=== PATIENT | female | born 1935 | race Caucasian/White ===

== ENCOUNTER 2016-09-28 12:01 | Emergency (ER) | payer MEDICARE, OTHER, MEDICAID ==
[~2016-09-28] VITALS: Ht 157.5 cm; Wt 54.4 kg
[~2016-09-28 12:01] MED LIST: ALBU8.5H2; AMLO5TAB2 PO; ASP325T; ATOR40TA PO; CALC-80 PO; CLCX200C; CYAN500L PO; DCS100C PO; DPH25C PO; EST.625T PO; FEXO180T PO; FLT22013 IH; GFCD10B; GLMP1T; HCA25SU; HYDR-757 PO; HYDR1TAB; HYDR1TAB75 PO; HYDR30CR71; IBP800T PO; IBUP-15; LEVO125T PO; LEVO137T24; LEVO250T7 PO; LVB.63NB3 IH; NF-LOVAZAC PO; OMEP-10 PO; ORPH100T PO; PNT40TEC; PREG50C PO; PROP1TAB2; SCR1T PO; TELM80TA3 PO; TR5C15 TOP; WHEA1POW PO
[2016-09-28] MEDS ORDERED: MELA5TAB14 PO (13:20)
[2016-09-28] MEDS ORDERED: GLIP5TAB13 PO (13:20)
[2016-09-28] MEDS ORDERED: LEVO112T55 PO (13:20)
--- NOTE | 2016-09-28 14:18 | ED General ---
General Chief Complaint: Upper Extremity Stated Complaint: R SHOULDER SCRATCH Nursing Triage Note: Pt. advised her dog scratched her arm yesterday. Care provider placed steri-strips and antibiotic ointment to the area after the incident occured, bleeding is controlled. Care provider advises they are concerned the site may be infected. Nursing Sepsis Screen: No Definite Risk Source of Information: Patient, Caregiver Exam Limitations: No Limitations History of Present Illness Time Seen by Provider: 13:58 Initial Comments This 81-year-old woman is brought to the emergency room with concerns about a right arm injury where her dog scratched her. The dog was nervous during a thunderstorm and jumped in her bed. Patient has 24-hour care attendants who addressed the wound. It was washed and approximated with butterfly sutures. Antibiotic ointment was applied. Her care providers concerned about discoloration and possible infection. However, the discoloration appears to be bruising with no significant inflammation, swelling, or tenderness. Additionally, the patient's blood sugar was in the 40s upon arrival. She was still alert and was able to eat. Blood sugar recovered into the 140s. Patient takes glipizide for blood sugar management. She has had some difficulty with low blood sugars recently. She also reports hypothyroidism but no recent checks on her thyroid regulation. Allergies and Home Medications Allergies Coded Allergies: lisinopril (Verified Allergy, Mild, SWELLING, COULDN'T BREATHE, 01/12/16) Home Medications Amlodipine Besylate 5 Mg Tablet, 5 MG PO DAILY, Ref 0 (Reported) Amoxicillin/Potassium Clav 1 Each Tablet, 1 EACH PO BID, #14 Prescribed by: ÓSCAR GUILLAUME on 09/28/16 1420 Atorvastatin Calcium 40 Mg Tablet, 40 MG PO DAILY, Ref 0 (Reported) Glipizide 5 Mg Tablet, 5 MG PO, (Reported) Levothyroxine Sodium 112 Mcg Tablet, 112 MCG PO, (Reported) Melatonin 5 Mg Tablet, 5 MG PO, (Reported) Omeprazole 20 Mg Capsule.dr, 1 TAB PO BID, (Reported) Telmisartan 80 Mg Tablet, 80 MG PO DAILY, Ref 0 (Reported) Constitutional: no symptoms reported EENTM: no symptoms reported Respiratory: no symptoms reported Cardiovascular: no symptoms reported Gastrointestinal: no symptoms reported Genitourinary: no symptoms reported Musculoskeletal: no symptoms reported Skin: see HPI Psychiatric/Neurological: No Symptoms Reported Hematologic/Lymphatic: No Symptoms Reported Past Gfasbor-Vowqnh-Wjmyxx Hx Patient Social History Alcohol Use: Denies Use Recreational Drug Use: No Smoking Status: Never a Smoker Recent Foreign Travel: No Contact w/Someone Who Travel: No Recent Infectious Disease Expo: No Recent Hopitalizations: Yes Immunizations Up To Date Tetanus Booster (TDap): Less than 5yrs Date of Pneumonia Vaccine: Mar 01, 2010 Date of Influenza Vaccine: Mar 01, 2015 Seasonal Allergies Seasonal Allergies: No Surgeries HX Surgeries: Yes (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, SURGERY ON BOTH FEET, PINS IN BOTH FEET) Surgeries: Oophorectomy, Orthopedic Respiratory Hx Respiratory Disorders: No Cardiovascular Hx Cardiac Disorders: Yes Cardiac Disorders: Hypertension Neurological Hx Neurological Disorders: Yes (Fall with head bleed) Neurological Disorders: Traumatic Brain Injury 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 System Hx 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 Disorders: No Sexually Transmitted Disease: No HIV/AIDS: No Genitourinary Hx Genitourinary Disorders: No Gastrointestinal Hx Gastrointestinal Disorders: No Musculoskeletal Hx Musculoskeletal Disorders: No Musculoskeletal Disorders: Arthritis Endocrine Hx Endocrine Disorders: Yes Endocrine Disorders: Diabetes, Non-Insulin dep HEENT HX ENT Disorders: No Hearing Impairment: Hard of Hearing Cancer Hx Cancer: No Psychosocial Hx Psychiatric Problems: No Integumentary HX Skin/Integumentary Disorder: No Blood Transfusions Hx Blood Disorders: No Family Medical History Significant Family History: Heart Disease, COPD Family Medial History: Cardiovascular disease DAUGHTER Diabetes mellitus DAUGHTER Respiratory disorder DAUGHTER Physical Exam Vital Signs Vital Sign - Last 12Hours 09/28/16 12:20 Temp 97.2 Pulse 76 Resp 14 B/P (MAP) 145/61 Pulse Ox 97 O2 Delivery Room Air Capillary Refill : Less Than 3 Seconds General Appearance: No Apparent Distress, WD/WN HEENT: Normal ENT Inspection Neck: Normal Inspection Respiratory: Lungs Clear, Normal Breath Sounds, No Accessory Muscle Use, No Respiratory Distress Cardiovascular: Regular Rate, Rhythm, No Edema, No Murmur Extremity: Other (Wound has been well approximated with butterfly sutures. There is distal bruising without any evidence of inflammation, swelling, or unusual tenderness to suggest infection.) Neurologic/Psychiatric: Alert, Oriented x3, No Motor/Sensory Deficits, Normal Mood/Affect, financial analyst II-XII Norm as Tested Skin: Normal Color, Warm/Dry, Other (See above) Progress/Results/Core Measures Results/Orders Lab Results Laboratory Tests Test 09/28/16 12:51 09/28/16 13:54 Range/Units Glucometer 42 *L 144 H 70-110 MG/DL My Orders Orders - ÓSCAR HOWARD MD Cho 60g/M 1snack (16-2000 Cresencio) (09/28/16 Lunch) Vital Signs/I&O Blood Pressure Mean: 89 Point of Care Testing Finger Stick Blood Glucose: 144 Blood Glucose Action Taken: meal tray ordered, provider notified Progress Note : Progress Note Patient was started on Augmentin due to the nature of her wound and presence of diabetes. She was instructed to cut her glipizide in half until further instructions by her primary care provider. She was offered evaluation of her thyroid labs while in the ER. She declined and stated she would have her primary care provider address thyroid function. Advised her to pursue thyroid function testing as this may be contributing to her episodes of hypoglycemia. Departure Impression Impression: Primary Impression: Laceration of right upper arm Qualified Codes: S41.111A - Laceration without foreign body of right upper arm , initial encounter Additional Impressions: Hypoglycemia Hypothyroidism Qualified Codes: E03.9 - Hypothyroidism, unspecified Disposition: HOME, SELF-CARE Condition: Improved Departure-Patient Inst. Decision time for Depature: 14:05 Referrals: NICO ANTONIO MD (PCP) Primary Care Physician Patient Instructions: HYPOGLYCEMIA Add. Discharge Instructions: Hypoglycemia: Be sure to eat a well-balanced diet with 3 meals a day. Cut your glipizide dose in half until you are able to follow-up with your doctor. Monitor your blood sugars closely, preferably fasting in the morning and 2 hours after each meal. Record those blood sugars and bring them to your follow-up appointment Hypothyroidism: Have your thyroid levels (TSH and free T4) checked by your primary care provider. I suggest having these checked at least every 6 months to ensure no levothyroxin dosing changes are needed. Thyroid imbalance may affect your blood sugars. Arm laceration: Allow the Steri-Strips to all off naturally. Do not attempt to peel them away as this may cause the wound to open. You may trim off loose edges carefully with a small pair of scissors. Monitor for signs of infection including increasing redness, increasing swelling, increasing pain, puslike drainage, or fever. Return to care promptly if you notice these symptoms. Complete your antibiotic as prescribed to prevent infection. Please make a follow-up appointment to see your doctor later this week. All discharge instructions reviewed with patient and/or family. Voiced understanding. Scripts Amoxicillin/Potassium Clav (Augmentin 500-125 Tablet) 1 Each Tablet 1 EACH PO BID, #14 TAB Prov: ÓSCAR HOWARD MD 09/28/16 Copy Copies To 1: NICO ANTONIO MD, JOSHUA T MD Sep 28, 2016 14:18
[2016-09-28] MEDS ORDERED: AMOX-355 PO (14:20)
[2016-09-28 14:24] VITALS: BP 146/76
== END 2016-09-28 14:24 | disposition home or self-care (01) ==
LOC: EDUNIT# 12:01 → ER 12:03
DX: S41.111A Laceration without foreign body of right upper arm, initial encounter (principal); E03.9 Hypothyroidism, unspecified; E11.649 Type 2 diabetes mellitus with hypoglycemia without coma; I10 Essential (primary) hypertension; Z79.84 Long term (current) use of oral hypoglycemic drugs; Z79.899 Other long term (current) drug therapy; W54.1XXA Struck by dog, initial encounter; Y92.013 Bedroom of single-family (private) house as the place of occurrence of the external cause; Y99.8 Other external cause status
CPT/HCPCS: 82962; 99282

== ENCOUNTER 2017-03-27 18:16 | Emergency (ER) | payer MEDICARE, MEDICAID ==
[~2017-03-27] VITALS: Ht 157.5 cm; Wt 53.1 kg
[~2017-03-27 18:16] MED LIST changes: +AMOX-355 PO; +GLIP5TAB13 PO; +LEVO112T55 PO; +MELA5TAB14 PO
--- NOTE | 2017-03-27 19:06 | ED Cardiac General ---
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 PT DENIES ANY S/S. Source: patient, caregiver Exam Limitations: no limitations History of Present Illness Time seen by provider: 19:04 Initial Comments To ER accompanied by her caregiver with reports of hypertension and vomiting at home prior to arrival. At 4 p.m. caregiver states the patient was normal. She then began vomiting which usually indicates that she has high blood pressure according to the caregiver. She checked her blood pressure twice and found it to be 219/104. Currently she is 175/91 with a heart rate of 76 regular. She denies headache at this time, denies neck pain chest pain or shortness of breath. She denies any nausea currently or abdominal pain. She states she feels back to normal. She is alert and oriented. 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 Timing/Duration: 1-3 hours Severity: moderate NTG SL WET POUR SUPERVISOR: No ASA po WET POUR SUPERVISOR: No Associated Systoms: No Headaches Allergies and Home Medications Allergies Coded Allergies: lisinopril (Verified Allergy, Mild, SWELLING, COULDN'T BREATHE, 01/12/16) Home Medications Amlodipine Besylate 5 Mg Tablet, 5 MG PO DAILY, Ref 0 (Reported) Amoxicillin/Potassium Clav 1 Each Tablet, 1 EACH PO BID, #14 Prescribed by: ÓSCAR GUILLAUME on 09/28/16 1420 Atorvastatin Calcium 40 Mg Tablet, 40 MG PO DAILY, Ref 0 (Reported) Glipizide 5 Mg Tablet, 5 MG PO, (Reported) Levothyroxine Sodium 112 Mcg Tablet, 112 MCG PO, (Reported) Melatonin 5 Mg Tablet, 5 MG PO, (Reported) Omeprazole 20 Mg Capsule.dr, 1 TAB PO BID, (Reported) Telmisartan 80 Mg Tablet, 80 MG PO DAILY, Ref 0 (Reported) Review of Systems Constitutional: see HPI EENTM: No Symptoms Reported Respiratory: No Symptoms Reported Cardiovascular: See HPI, Denies Chest Pain, Denies Edema, Denies Irregular Heart Rate, Denies Lightheadedness, Denies Palpitations, Denies Syncope Gastrointestinal: See HPI, Denies Abdominal Pain, Nausea, Vomiting Genitourinary: No Symptoms Reported Musculoskeletal: no symptoms reported Skin: no symptoms reported Psychiatric/Neurological: No Symptoms Reported Endocrine: No Symptoms Reported Past Jmqcipy-Ikvngj-Jfkoqo Hx Patient Social History Alcohol Use: Denies Use Recreational Drug Use: No Smoking Status: Never a Smoker Recent Foreign Travel: No Contact w/Someone Who Travel: No Recent Infectious Disease Expo: No Recent Hopitalizations: Yes Immunizations Up To Date Tetanus Booster (TDap): Less than 5yrs Date of Pneumonia Vaccine: Mar 01, 2010 Date of Influenza Vaccine: Mar 01, 2015 Seasonal Allergies Seasonal Allergies: No Surgeries History of Surgeries: Yes (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, SURGERY ON BOTH FEET , PINS IN BOTH FEET) Surgeries: Oophorectomy, Orthopedic Respiratory History of Respiratory Disorde: No Cardiovascular History of Cardiac Disorders: Yes Cardiac Disorders: High Cholesterol, Hypertension Neurological History of Neurological Disord: Yes (Fall with head bleed) Neurological Disorders: Traumatic Brain Injury 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 System Hx 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 Disorders: No Sexually Transmitted Disease: No HIV/AIDS: No Genitourinary History of Genitourinary Disor: Yes Genitourinary Disorders: Renal Failure Gastrointestinal History of Gastrointestinal Di: No Musculoskeletal History of Musculoskeletal Dis: No Musculoskeletal Disorders: Arthritis Endocrine History of Endocrine Disorders: Yes Endocrine Disorders: Hyperthyroidism, Diabetes, Non-Insulin dep HEENT Hearing Impairment: Hard of Hearing Cancer History of Cancer: No Psychosocial History of Psychiatric Problem: Yes Behavioral Health Disorders: Depression Integumentary History of Skin or Integumenta: No Blood Transfusions History of Blood Disorders: No Family Medical History Significant Family History: Heart Disease, COPD Family Medial History: Cardiovascular disease DAUGHTER Diabetes mellitus DAUGHTER Respiratory disorder DAUGHTER Physical Exam Vital Signs Vital Sign - Last 12Hours 03/27/17 18:56 Pulse 79 Resp 16 B/P (MAP) 176/86 Capillary Refill : Less Than 3 Seconds General Appearance: No Apparent Distress, WD/WN HEENT: PERRL/EOMI, TMs Normal Neck: Full Range of Motion, Normal Inspection Respiratory: Normal Breath Sounds, No Accessory Muscle Use, No Respiratory Distress Cardiovascular: Regular Rate, Rhythm, No Edema, Normal Peripheral Pulses Gastrointestinal: Normal Bowel Sounds, Non Tender, Soft Extremity: Normal Capillary Refill, Normal Inspection Neurologic/Psychiatric: Alert, Oriented x3, No Motor/Sensory Deficits Skin: Normal Color, Warm/Dry Progress/Results/Core Measures Results/Orders Lab Results Laboratory Tests Test 03/27/17 19:27 Range/Units White Blood Count 7.1 4.3-11.0 10^3/uL Red Blood Count 3.99 L 4.35-5.85 10^6/uL Hemoglobin 12.0 11.5-16.0 G/DL Hematocrit 35 35-52 % Mean Corpuscular Volume 89 80-99 FL Mean Corpuscular Hemoglobin 30 25-34 PG Mean Corpuscular Hemoglobin Concent 34 32-36 G/DL Red Cell Distribution Width 12.9 10.0-14.5 % Platelet Count 225 130-400 10^3/uL Mean Platelet Volume 10.3 7.4-10.4 FL Neutrophils (%) (Auto) 65 42-75 % Lymphocytes (%) (Auto) 22 12-44 % Monocytes (%) (Auto) 9 0-12 % Eosinophils (%) (Auto) 3 0-10 % Basophils (%) (Auto) 1 0-10 % Neutrophils # (Auto) 4.6 1.8-7.8 X 10^3 Lymphocytes # (Auto) 1.6 1.0-4.0 X 10^3 Monocytes # (Auto) 0.7 0.0-1.0 X 10^3 Eosinophils # (Auto) 0.2 0.0-0.3 10^3/uL Basophils # (Auto) 0.1 0.0-0.1 10^3/uL Sodium Level 141 135-145 MMOL/L Potassium Level 3.8 3.6-5.0 MMOL/L Chloride Level 106 98-107 MMOL/L Carbon Dioxide Level 24 21-32 MMOL/L Anion Gap 11 5-14 MMOL/L Blood Urea Nitrogen 29 H 7-18 MG/DL Creatinine 1.16 0.60-1.30 MG/DL Estimat Glomerular Filtration Rate 45 BUN/Creatinine Ratio 25 Glucose Level 157 H 70-105 MG/DL Calcium Level 9.6 8.5-10.1 MG/DL Total Bilirubin 0.5 0.1-1.0 MG/DL Aspartate Amino Transf (AST/SGOT) 19 5-34 U/L Alanine Aminotransferase (ALT/SGPT) 10 0-55 U/L Alkaline Phosphatase 82 40-136 U/L Troponin I < 0.30 <0.30 NG/ML B-Type Natriuretic Peptide 103.8 H <100.0 PG/ML Total Protein 7.4 6.4-8.2 GM/DL Albumin 4.1 3.2-4.5 GM/DL My Orders Orders - LIZABETH SERRANO APRN Cbc With Automated Diff (03/27/17 19:03) Comprehensive Metabolic Panel (03/27/17 19:03) Troponin I (03/27/17 19:03) BNP (03/27/17 19:03) Ekg Tracing (03/27/17 19:03) Chest Pa/Lat (2 View) (03/27/17 19:03) Ct Head Wo (03/27/17 19:03) Clonidine Tablet (Catapres Tablet) (03/27/17 19:15) Medications Given in ED Current Medications Medications Dose Ordered Sig/Kevin Route Start Time Stop Time Status Last Admin Dose Admin Clonidine HCl 0.1 mg ONCE ONCE PO 03/27/17 19:15 03/27/17 19:16 DC 03/27/17 19:17 0.1 MG Vital Signs/I&O Vital Sign - Last 12Hours 03/27/17 18:56 Pulse 79 Resp 16 B/P (MAP) 176/86 Blood Pressure Mean: 116 Diagnostic Imaging Diagonstic Imaging: CT Comments NAME: JOSE CUBA [facility] REC#: [id number] PT STATUS: REG ER : 1935 PHYSICIAN: LIZABETH SERRANO APRN ADMIT DATE: 03/27/17/ER Draft Date of Exam:03/27/17 CT HEAD WO PROCEDURE: CT head without contrast. TECHNIQUE: Multiple contiguous axial images were obtained through the brain without the use of intravenous contrast. INDICATION: Fell 2 days ago. States throwing up. Headache. Comparison with 02/06/2016. FINDINGS: Right craniotomy is again noted. There is increased signal noted scattered along the cortical gyral surface; however, this does not appear to have appearance of typical subarachnoid hemorrhage. This is felt more likely to represent chronic calcification. This has changed slightly, however, when compared with 02/06/2016. There is also slight increased density noted within the left internal capsular region since previous study which could represent acute hemorrhage. There is calcification, however, within the basal nuclei bilaterally. There is no mass effect. Ventricles are slightly prominent with no shift of the midline. The basal cisterns are clear. The sylvian fissures are clear. No evidence of subdural hemorrhage. Craniotomy is noted in the right frontoparietal region. IMPRESSION: 1. Asymmetrical area of increased density in the left basal nuclear region. There has been considerable basal nuclear calcification, however, since previous exam in 2015. This could possibly represent a small focal hemorrhage. Short-term followup or MRI recommended. 2. Increased density along the cortical gyral surface bilaterally in a rather diffuse fashion is also felt to most likely represent calcific change as opposed to hemorrhage. Dictated on workstation # [id number] Dict: 03/27/171935 Trans: 03/27/171999 BALA [id number] Interpreted by: DULCE ZHENG MD Electronically signed by: Departure Communication (Admissions) Family Conversation 2012- patient remains asymptomatic without headache, neck pain, confusion. GCS remains 15. Blood pressure 153/75. I discussed with the patient her CT brain which shows an area of density that could be a bleed which could be life- threatening or permanently disabling or could simply be a calcification without consequence. I did recommend to have her transferred to outside Hospital for MRI tonight, or admit here for serial neuro checks and repeat CT in the morning. Patient declined stating that she would like to go home and take care of her dogs. She is aware of the risks. She has a caregiver from [facility] who stays with her overnight and can observe her for any concerning symptoms and return her promptly to the emergency room. Otherwise, she would return tomorrow morning for an MRI of the brain. I did discuss this with Dr. Zaman who is on-call with [facility] and she agrees with this plan. Patient is not on any anticoagulants. 2032- I did discuss with the x-ray department the logistics of getting the MRI tomorrow. service technician copier arrives at 7 a.m. and will schedule this and call the patient with a time for tomorrow morning.. Patient is discharged to home with her caregiver. These instructions were also verbalized to the caregiver. Patient is ambulatory out of the emergency room without abnormality of gait. Progress Notes NAME: JOSE CUBA MED REC#: [id number] PT STATUS: REG ER : 1935 PHYSICIAN: LIZABETH SERRANO APRN ADMIT DATE: 03/27/17/ER Draft Date of Exam:03/27/17 CHEST PA/LAT (2 VIEW) INDICATION: Passed out 2-3 days ago. Nausea and vomiting. Comparison with 04/09/2015. FINDINGS: PA and lateral chest show the lungs to be well-aerated. There are no infiltrates or masses present. The heart is not enlarged. There is no hilar adenopathy. No pneumothorax or pleural effusions. No bony abnormalities. IMPRESSION: Normal PA and lateral chest. Dictated on workstation # [id number] Dict: 03/27/171941 Trans: 03/27/171944 [facility] [id number] Interpreted by: DULCE ZHENG MD Electronically signed by: Impression Impression: Primary Impression: Labile hypertension Additional Impression: Abnormal CT of brain Disposition: 01 HOME, SELF-CARE Condition: Stable Departure-Patient Inst. Decision time for Depature: 20:00 Referrals: NICO ANTONIO MD (PCP/Family) Primary Care Physician Patient Instructions: Malignant Hypertension Add. Discharge Instructions: 1. Return promptly to the emergency room for any headache, nausea, confusion, weakness on one side of the other 2. Otherwise, return to the emergency room tomorrow morning to have an MRI 3. Scheduling will call your tomorrow morning to schedule the MRI for tomorrow morning. All discharge instructions reviewed with patient and/or family. Voiced understanding. Copy Copies To 1: JACKIE ZAMAN MD; NICO ANTONIO MD, PETER J APRN Mar 27, 2017 19:06
[2017-03-27] MEDS ORDERED: cloNIDine 0.1 MG (CATAPRES) TAB PO ONE (19:15)
[2017-03-27 19:35] LABS: BASOPHILS # (AUTO) 0.1 10^3/uL (0.0-0.1); BASOPHILS % (AUTO) 1 % (0-10); EOSINOPHILS # (AUTO) 0.2 10^3/uL (0.0-0.3); EOSINOPHILS % (AUTO) 3 % (0-10); LYMPHOCYTES # (AUTO) 1.6 X 10^3 (1.0-4.0); LYMPHOCYTES % (AUTO) 22 % (12-44); MEAN CORPUSCULAR HEMOGLOBIN 30 PG (25-34); MEAN CORPUSCULAR HGB CONC 34 G/DL (32-36); MEAN CORPUSCULAR VOLUME 89 FL (80-99); MEAN PLATELET VOLUME 10.3 FL (7.4-10.4); MONOCYTES # (AUTO) 0.7 X 10^3 (0.0-1.0); MONOCYTES % (AUTO) 9 % (0-12); NEUTROPHILS # (AUTO) 4.6 X 10^3 (1.8-7.8); NEUTROPHILS % (AUTO) 65 % (42-75); PLATELET COUNT 225 10^3/uL (130-400); RED BLOOD COUNT 3.99 10^6/uL (4.35-5.85); RED CELL DISTRIBUTION WIDTH 12.9 % (10.0-14.5); WHITE BLOOD COUNT 7.1 10^3/uL (4.3-11.0)
--- NOTE | 2017-03-27 19:45 | Diagnostic Imaging Report ---
INDICATION: Passed out 2-3 days ago. Nausea and vomiting. Comparison with 04/09/2015. FINDINGS: PA and lateral chest show the lungs to be well-aerated. There are no infiltrates or masses present. The heart is not enlarged. There is no hilar adenopathy. No pneumothorax or pleural effusions. No bony abnormalities. IMPRESSION: Normal PA and lateral chest. Dictated by: Dictated on workstation # [id number]
[2017-03-27 19:55] LABS: ALANINE AMINOTRANSFERASE 10 U/L (0-55); ALBUMIN 4.1 GM/DL (3.2-4.5); ANION GAP 11 MMOL/L (5-14); ASPARTATE AMINO TRANSFERASE 19 U/L (5-34); BILIRUBIN,TOTAL 0.5 MG/DL (0.1-1.0); BLOOD UREA NITROGEN 29 MG/DL (7-18); BUN/CREATININE RATIO 25; CALCIUM 9.6 MG/DL (8.5-10.1); CARBON DIOXIDE 24 MMOL/L (21-32); CHLORIDE 106 MMOL/L (98-107); CREATININE SERUM 1.16 MG/DL (0.60-1.30); GFR ESTIMATED 45; GLUCOSE 157 MG/DL (70-105); POTASSIUM 3.8 MMOL/L (3.6-5.0); SODIUM 141 MMOL/L (135-145); TOTAL PROTEIN 7.4 GM/DL (6.4-8.2)
--- NOTE | 2017-03-27 20:00 | Diagnostic Imaging Report ---
PROCEDURE: CT head without contrast. TECHNIQUE: Multiple contiguous axial images were obtained through the brain without the use of intravenous contrast. INDICATION: Fell 2 days ago. States throwing up. Headache. Comparison with 02/06/2016. FINDINGS: Right craniotomy is again noted. There is increased signal noted scattered along the cortical gyral surface; however, this does not appear to have appearance of typical subarachnoid hemorrhage. This is felt more likely to represent chronic calcification. This has changed slightly, however, when compared with 02/06/2016. There is also slight increased density noted within the left internal capsular region since previous study which could represent acute hemorrhage. There is calcification, however, within the basal nuclei bilaterally. There is no mass effect. Ventricles are slightly prominent with no shift of the midline. The basal cisterns are clear. The sylvian fissures are clear. No evidence of subdural hemorrhage. Craniotomy is noted in the right frontoparietal region. IMPRESSION: 1. Asymmetrical area of increased density in the left basal nuclear region. There has been considerable basal nuclear calcification, however, since previous exam in 2015. This could possibly represent a small focal hemorrhage. Short-term followup or MRI recommended. 2. Increased density along the cortical gyral surface bilaterally in a rather diffuse fashion is also felt to most likely represent calcific change as opposed to hemorrhage. Dictated by: Dictated on workstation # [id number]
[2017-03-27 20:01] LABS: TROPONIN I < 0.30 NG/ML (<0.30)
[2017-03-27 20:27] VITALS: BP 148/74
== END 2017-03-27 20:27 | disposition home or self-care (01) ==
LOC: EDUNIT# 18:16 → ER 18:17
DX: I10 Essential (primary) hypertension (principal); R93.0 Abnormal findings on diagnostic imaging of skull and head, not elsewhere classified; E78.00 Pure hypercholesterolemia, unspecified; E11.9 Type 2 diabetes mellitus without complications; F32.9 Major depressive disorder, single episode, unspecified; E05.90 Thyrotoxicosis, unspecified without thyrotoxic crisis or storm; Z82.49 Family history of ischemic heart disease and other diseases of the circulatory system; Z87.820 Personal history of traumatic brain injury; Z79.84 Long term (current) use of oral hypoglycemic drugs; Z90.722 Acquired absence of ovaries, bilateral
CPT/HCPCS: 36415; 70450; 71020; 80053; 83880; 84484; 85025; 93005

== ENCOUNTER → 2017-03-28 | Outpatient (CLI) | payer MEDICARE, MEDICAID ==
--- NOTE | 2017-03-28 12:04 | Diagnostic Imaging Report ---
PROCEDURE: MR imaging of the brain without contrast. TECHNIQUE: Multiplanar, multisequence MR imaging of the brain was performed without contrast. INDICATION: Abnormal CT of the brain COMPARISON: MRI dated September 18, [address] dated March 27, 2017. FINDINGS: No evidence for restricted diffusion to suggest recent infarction. Mild atrophy. 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 This is seen extensively extending into the erna and bilateral cerebellar hemispheres. No intracranial mass, mass effect, midline shift, obstructive hydrocephalus or herniation. Small curvilinear extra-axial fluid is identified overlying the right cerebral hemisphere. This is significantly decreased in size since the prior MRI from August 2015. This measures a maximal thickness of 3 mm. No extra-axial fluid overlying the left cerebral hemisphere. Post surgical changes of a right parietal craniotomy are identified. No new hemorrhage identified. In particular, no significant blooming artifact within the left basal nuclear region to suggest hemorrhage. No evidence of blooming artifact along the cortical gyral surface to correspond to hyperdensities seen on the recent CT examination. Mucosal thickening with near complete opacification of the bilateral maxillary sinuses. Otherwise, the paranasal sinuses are clear. Bilateral ocular lenses are absent. Otherwise, the orbits are unremarkable. Vascular flow-voids at the skull base are unremarkable. Besides the post surgical changes, the calvarium and extra calvarial soft tissues are unremarkable. IMPRESSION: No new acute intracranial abnormality. Tiny subdural hematoma overlying the right cerebral hemisphere. 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 Additional postsurgical and chronic findings as described above. Significant bilateral maxillary sinus disease. Dictated by: Dictated on workstation # [id number]
== END ==
LOC: RAD 08:22
PROVIDERS: ATTEND Nurse Practitioner Family
DX: I62.00 Nontraumatic subdural hemorrhage, unspecified (principal); G31.9 Degenerative disease of nervous system, unspecified; J32.0 Chronic maxillary sinusitis
CPT/HCPCS: 70551

== ENCOUNTER 2017-05-01 11:03 | Emergency (ER) | payer MEDICARE, MEDICAID ==
[~2017-05-01] VITALS: Ht 157.5 cm; Wt 51.7 kg
--- OUTSIDE RECORDS SUMMARY | 2017-05-01 11:13 | XMS REPORT ---
Author Author KAITY Richardson [facility] Address Unknown Care Team Providers Care Medical Scientist Name Role Phone KAITY Richardson Unavailable PROBLEMS Type Condition ICD9-CM Code [id number] Code Onset Dates Condition Status SNOMED Code Problem Hypothyroidism E03.9 Active 76282897 Problem Epidural hematoma S06.4X9A Active 935273580 Problem Essential hypertension, hypertension with unspecified goal I10 Active 33447333 Problem Dementia F03.90 Active 49294888 Problem Depression F32.9 Active 41361098 Problem Primary insomnia F51.01 Active 3315979 Problem Other chronic pain G89.29 Active 58718631 Problem Mixed hyperlipidemia E78.2 Active 204004729 Problem Type 2 diabetes mellitus without complication, without long-term current use of insulin E11.9 Active 747947417 Problem Lumbago with sciatica, unspecified side M54.40 Active 14396450 Problem Gastroesophageal reflux disease without esophagitis K21.9 Active 527945166 ALLERGIES Substance Reaction Event Type Date Status Mobic shortness of breath Drug Allergy May, Active Macrobid Unknown Drug Allergy May, Active Lisinopril shortness of breath Drug Allergy May, Active SOCIAL HISTORY No smoking Hx information available PLAN OF CARE Activity Details Follow Up 1 Week Reason:te VITAL SIGNS Height 59 in 2016-05-07 Blood pressure systolic 106 mmHg 2016-05-07 Blood pressure diastolic 71 mmHg 2016-05-07 MEDICATIONS Medication Instructions Dosage Frequency Start Date End Date Duration Status Citalopram Hydrobromide 20 mg Orally Once a day 1 tablet 24h Active Omeprazole 20 mg Orally twice a day 1 capsule 12h Active Atorvastatin Calcium 40 mg Orally Once a day 1 tablet 24h Active Estrace 1 TAKE ONE TABLET BY MOUTH DAILY 30 Active Melatonin 300 MCG Orally Once a day 1 tablet at bedtime as needed with food 24h Active Amoxicillin 500 MG Orally Four times a day 1 capsule 6h May, May, 7 days Active Amlodipine Besylate 5 mg Orally Once a day 1 tablet 24h Active Micardis 40 MG Orally Once a day 1 tablet 24h Active RESULTS No Results PROCEDURES Procedure Date Ordered Related Diagnosis Body Site LTD ORAL EVALUATION - PROBLEM FOCUS May 07, 2016 INTRAORL-PERIAPICAL 1 FILM [id number] May 07, 2016 IMMUNIZATIONS No Known Immunizations
--- OUTSIDE RECORDS SUMMARY | 2017-05-01 11:13 | XMS REPORT ---
Author Author GAL BOLIVAR Organization [facility] Address [address] [place] [address] Care Team Providers Care Furniture Repair Technician Name Role Phone GAL BOLIVAR Unavailable PROBLEMS Type Condition ICD9-CM Code [id number] Code Onset Dates Condition Status SNOMED Code Problem Hypothyroidism E03.9 Active 24918821 Problem Epidural hematoma S06.4X9A Active 649107301 Problem Essential hypertension, hypertension with unspecified goal I10 Active 21020543 Problem Dementia F03.90 Active 84762252 Problem Depression F32.9 Active 70762061 Problem Primary insomnia F51.01 Active 7512949 Problem Other chronic pain G89.29 Active 80532763 Problem Mixed hyperlipidemia E78.2 Active 138055745 Problem Type 2 diabetes mellitus without complication, without long-term current use of insulin E11.9 Active 539857137 Problem Lumbago with sciatica, unspecified side M54.40 Active 88252927 Problem Gastroesophageal reflux disease without esophagitis K21.9 Active 967659951 ALLERGIES Substance Reaction Event Type Date Status Mobic shortness of breath Drug Allergy Oct, Active Macrobid Unknown Drug Allergy Oct, Active Lisinopril shortness of breath Drug Allergy Oct, Active SOCIAL HISTORY Never Assessed PLAN OF CARE Activity Details Follow Up 1 Week Reason:Suture removal VITAL SIGNS Height 59 in 2016-10-31 Weight 117.6 lbs 2016-10-31 Temperature 98.3 degrees Fahrenheit 2016-10-31 Heart Rate 78 bpm 2016-10-31 Respiratory Rate 20 2016-10-31 BMI 23.75 kg/m2 2016-10-31 Blood pressure systolic 118 mmHg 2016-10-31 Blood pressure diastolic 76 mmHg 2016-10-31 MEDICATIONS Medication Instructions Dosage Frequency Start Date End Date Duration Status Micardis 40 MG Orally Once a day 1 tablet 24h Active Lexapro 10 TAKE ONE TABLET BY MOUTH DAILY 30 Active Atorvastatin Calcium 40 TAKE ONE TABLET BY MOUTH DAILY 30 Active Omeprazole 20 mg Orally twice a day 1 capsule 12h Active AYOXXA Biosystemsuch Ultra Test - subcutaneously one time test blood sugars September, Active AYOXXA Biosystemsuch UltraSoft Lancets - subcutaneously Once a day use to test blood sugar with 24h September, Active Levothyroxine Sodium 112 MCG Orally Once a day 1 tablet 24h 30 days Active Atorvastatin Calcium 40 mg Orally Once a day 1 tablet 24h Active Amlodipine Besylate 5 mg Orally Once a day 1 tablet 24h Active AYOXXA Biosystemsuch Ultra 2 w/Device subcutaneously Once a day test blood sugar 24h September, 30 days Active Melatonin 300 MCG Orally Once a day 1 tablet at bedtime as needed with food 24h Active Ultram 50 mg Orally 2 times a day 1 tablet as needed 12h Jun, Active Lexapro 10 mg Orally Once a day 1 tablet 24h Jun, 30 day(s) Active RESULTS No Results PROCEDURES Procedure Date Ordered Result Body Site TDAP (BOOSTRIX) October 31, 2016 SINGLE IMMUNIZATION ADMIN October 31, 2016 [facility] VISIT ESTABLISHED PATIENT October 31, 2016 IMMUNIZATIONS Vaccine Route Administration Date Status TDAP (BOOSTRIX) IM Intramuscular October 31, 2016 Administered MEDICAL (GENERAL) HISTORY Type Description Date Medical History hypertension Medical History depression Medical History Diabetes Surgical History hysterectomy Surgical History Brain Surgery 08/2015 Surgical History left elbow surgery 2004 Hospitalization History Acute Renal Failure 12/2015 Hospitalization History surgery
--- OUTSIDE RECORDS SUMMARY | 2017-05-01 11:15 | XMS REPORT ---
Author Author NICO ANTONIO [facility] Address [address] [place] [address] Care Team Providers Care Machine Sneller Name Role Phone NICO ANTONIO Unavailable PROBLEMS Type Condition ICD9-CM Code [id number] Code Onset Dates Condition Status SNOMED Code Problem Hypothyroidism E03.9 Active 31856422 Problem Epidural hematoma S06.4X9A Active 104862759 Problem Essential hypertension, hypertension with unspecified goal I10 Active 81247052 Problem Dementia F03.90 Active 96837410 Problem Depression F32.9 Active 13885121 Problem Primary insomnia F51.01 Active 3944616 Problem Other chronic pain G89.29 Active 55567861 Problem Mixed hyperlipidemia E78.2 Active 338571783 Problem Type 2 diabetes mellitus without complication, without long-term current use of insulin E11.9 Active 271508619 Problem Lumbago with sciatica, unspecified side M54.40 Active 65014331 Problem Gastroesophageal reflux disease without esophagitis K21.9 Active 928455729 ALLERGIES No Information SOCIAL HISTORY Never Assessed PLAN OF CARE VITAL SIGNS MEDICATIONS Medication Instructions Dosage Frequency Start Date End Date Duration Status Levothyroxine Sodium 112 mcg TAKE ONE TABLET BY MOUTH DAILY ON AN EMPTY STOMACH 30 Active RESULTS No Results PROCEDURES No Known procedures IMMUNIZATIONS No Known Immunizations MEDICAL (GENERAL) HISTORY Type Description Date Medical History hypertension Medical History depression Medical History Diabetes Surgical History hysterectomy Surgical History Brain Surgery 08/2015 Surgical History left elbow surgery 2004 Hospitalization History Acute Renal Failure 12/2015 Hospitalization History surgery
--- OUTSIDE RECORDS SUMMARY | 2017-05-01 11:15 | XMS REPORT ---
Author Author JSAON RODRÍGUEZ Organization [facility] Address [address] [place] [address] Care Team Providers Care Mold Stripper Name Role Phone MARCOS JASON Unavailable PROBLEMS Type Condition ICD9-CM Code [id number] Code Onset Dates Condition Status SNOMED Code Problem Hypothyroidism E03.9 Active 33371435 Problem Epidural hematoma S06.4X9A Active 080162584 Problem Essential hypertension, hypertension with unspecified goal I10 Active 60221526 Problem Dementia F03.90 Active 95996880 Problem Depression F32.9 Active 30606662 Problem Primary insomnia F51.01 Active 1593870 Problem Other chronic pain G89.29 Active 59584765 Problem Mixed hyperlipidemia E78.2 Active 986783874 Problem Type 2 diabetes mellitus without complication, without long-term current use of insulin E11.9 Active 196384983 Problem Lumbago with sciatica, unspecified side M54.40 Active 27859068 Problem Gastroesophageal reflux disease without esophagitis K21.9 Active 350949923 ALLERGIES No Known Allergies SOCIAL HISTORY No smoking Hx information available PLAN OF CARE VITAL SIGNS MEDICATIONS Medication Instructions Dosage Frequency Start Date End Date Duration Status GlipiZIDE 5 mg Orally Once a day 1 tablet 24h Jun, 30 day(s) Active RESULTS No Results PROCEDURES No Known procedures IMMUNIZATIONS No Known Immunizations
--- OUTSIDE RECORDS SUMMARY | 2017-05-01 11:16 | XMS REPORT ---
Author Author NICO ANTONIO [facility] Address [address] [place] [address] Care Team Providers Care Finger Grip Machine Operator Name Role Phone NICO ANTONIO Unavailable PROBLEMS Type Condition ICD9-CM Code [id number] Code Onset Dates Condition Status SNOMED Code Problem Hypothyroidism E03.9 Active 91764085 Problem Epidural hematoma S06.4X9A Active 760024015 Problem Essential hypertension, hypertension with unspecified goal I10 Active 44036570 Problem Dementia F03.90 Active 27537312 Problem Depression F32.9 Active 47609868 Problem Primary insomnia F51.01 Active 8887582 Problem Other chronic pain G89.29 Active 21050922 Problem Mixed hyperlipidemia E78.2 Active 187799667 Problem Type 2 diabetes mellitus without complication, without long-term current use of insulin E11.9 Active 616982457 Problem Lumbago with sciatica, unspecified side M54.40 Active 82266301 Problem Gastroesophageal reflux disease without esophagitis K21.9 Active 948016677 ALLERGIES No Information SOCIAL HISTORY Never Assessed PLAN OF CARE VITAL SIGNS MEDICATIONS No Known Medications RESULTS No Results PROCEDURES No Known procedures IMMUNIZATIONS No Known Immunizations MEDICAL (GENERAL) HISTORY Type Description Date Medical History hypertension Medical History depression Medical History Diabetes Surgical History hysterectomy Surgical History Brain Surgery 08/2015 Surgical History left elbow surgery 2004 Hospitalization History Acute Renal Failure 12/2015 Hospitalization History surgery
--- OUTSIDE RECORDS SUMMARY | 2017-05-01 11:18 | XMS REPORT ---
Author Author DONAVON GORDILLO [facility] Address [address] [place] [address] Care Team Providers Care Art Therapy Certified Supervisor Name Role Phone DONAVON GORDILLO Unavailable PROBLEMS Type Condition ICD9-CM Code [id number] Code Onset Dates Condition Status SNOMED Code Problem Hypothyroidism E03.9 Active 42486320 Problem Epidural hematoma S06.4X9A Active 607035778 Problem Essential hypertension, hypertension with unspecified goal I10 Active 01858344 Problem Dementia F03.90 Active 31613993 Problem Depression F32.9 Active 48895037 Problem Primary insomnia F51.01 Active 0982915 Problem Gastroesophageal reflux disease without esophagitis K21.9 Active 911731561 Problem Mixed hyperlipidemia E78.2 Active 330849645 Problem Type 2 diabetes mellitus without complication, without long-term current use of insulin E11.9 Active 012354747 Problem Other chronic pain G89.29 Active 69869243 Problem Lumbago with sciatica, unspecified side M54.40 Active 30473838 ALLERGIES Substance Reaction Event Type Date Status Mobic shortness of breath Drug Allergy May, Active Macrobid Unknown Drug Allergy May, Active Lisinopril shortness of breath Drug Allergy May, Active SOCIAL HISTORY No smoking Hx information available PLAN OF CARE Activity Details Follow Up prn Reason: VITAL SIGNS Height 59 in 2016-05-15 Weight 107.4 lbs 2016-05-15 Temperature 97.9 degrees Fahrenheit 2016-05-15 Heart Rate 80 bpm 2016-05-15 Respiratory Rate 20 2016-05-15 BMI 21.69 kg/m2 2016-05-15 Blood pressure systolic 110 mmHg 2016-05-15 Blood pressure diastolic 70 mmHg 2016-05-15 MEDICATIONS Medication Instructions Dosage Frequency Start Date End Date Duration Status Tylenol/Codeine #3 300-30 MG Orally every 6 hrs 1 tablet as needed 6h May, Active Omeprazole 20 mg Orally twice a day 1 capsule 12h Active Melatonin 300 MCG Orally Once a day 1 tablet at bedtime as needed with food 24h Active Hydrochlorothiazide 50 Orally Once a day 1 tablet 24h 30 Active Citalopram Hydrobromide 20 mg Orally Once a day 1 tablet 24h Active Micardis 40 MG Orally Once a day 1 tablet 24h Active Amlodipine Besylate 5 mg Orally Once a day 1 tablet 24h Active Atorvastatin Calcium 40 mg Orally Once a day 1 tablet 24h Active Levothyroxine Sodium 137 MCG Orally Once a day 1 tablet 24h Active Estrace 1 TAKE ONE TABLET BY MOUTH DAILY 30 Active RESULTS Name Result Date Reference Range Xray : Hip, Right 2 views (IN HOUSE) 2016-05-15 PROCEDURES Procedure Date Ordered Related Diagnosis Body Site X-RAY EXAM HIP UNI 2-3 VIEWS May 15, 2016 [facility] VISIT ESTABLISHED PATIENT May 15, 2016 Office Visit, Est Pt., Level 3 May 15, 2016 IMMUNIZATIONS No Known Immunizations
--- OUTSIDE RECORDS SUMMARY | 2017-05-01 11:18 | XMS REPORT ---
Author Author KAITY Richardson [facility] Address Unknown Care Team Providers Care Superintendent Warehouse Name Role Phone KAITY Richardson Unavailable PROBLEMS Type Condition ICD9-CM Code [id number] Code Onset Dates Condition Status SNOMED Code Problem Hypothyroidism E03.9 Active 74218385 Problem Epidural hematoma S06.4X9A Active 829591074 Problem Essential hypertension, hypertension with unspecified goal I10 Active 00195845 Problem Dementia F03.90 Active 46644691 Problem Depression F32.9 Active 00992964 Problem Primary insomnia F51.01 Active 5387102 Problem Other chronic pain G89.29 Active 15372382 Problem Mixed hyperlipidemia E78.2 Active 459074589 Problem Type 2 diabetes mellitus without complication, without long-term current use of insulin E11.9 Active 116168023 Problem Lumbago with sciatica, unspecified side M54.40 Active 46560009 Problem Gastroesophageal reflux disease without esophagitis K21.9 Active 484417683 ALLERGIES Substance Reaction Event Type Date Status Mobic shortness of breath Drug Allergy May, Active Macrobid Unknown Drug Allergy May, Active Lisinopril shortness of breath Drug Allergy May, Active SOCIAL HISTORY No smoking Hx information available PLAN OF CARE VITAL SIGNS Height 59 in 2016-05-19 Blood pressure systolic 88 mmHg 2016-05-19 Blood pressure diastolic 61 mmHg 2016-05-19 MEDICATIONS Medication Instructions Dosage Frequency Start Date End Date Duration Status Levothyroxine Sodium 137 MCG Orally Once a day 1 tablet 24h Active Hydrochlorothiazide 50 Orally Once a day 1 tablet 24h 30 Active Tylenol/Codeine #3 300-30 MG Orally every 6 hrs 1 tablet as needed 6h May, Active Micardis 40 MG Orally Once a day 1 tablet 24h Active Melatonin 300 MCG Orally Once a day 1 tablet at bedtime as needed with food 24h Active Atorvastatin Calcium 40 mg Orally Once a day 1 tablet 24h Active Omeprazole 20 mg Orally twice a day 1 capsule 12h Active Estrace 1 TAKE ONE TABLET BY MOUTH DAILY 30 Active Amlodipine Besylate 5 mg Orally Once a day 1 tablet 24h Active Citalopram Hydrobromide 20 mg Orally Once a day 1 tablet 24h Active RESULTS No Results PROCEDURES Procedure Date Ordered Related Diagnosis Body Site EXTRAC ERUPTED TOOTH/EXPOSED ROOT May 19, 2016 IMMUNIZATIONS No Known Immunizations
--- OUTSIDE RECORDS SUMMARY | 2017-05-01 11:18 | XMS REPORT ---
Author Author NICO ANTONIO [facility] Address [address] [place] [address] Care Team Providers Care Facing Machine Operator Name Role Phone NICO ANTONIO Unavailable PROBLEMS Type Condition ICD9-CM Code [id number] Code Onset Dates Condition Status SNOMED Code Problem Hypothyroidism E03.9 Active 19586345 Problem Epidural hematoma S06.4X9A Active 673930574 Problem Essential hypertension, hypertension with unspecified goal I10 Active 04323725 Problem Dementia F03.90 Active 53346702 Problem Depression F32.9 Active 50445309 Problem Primary insomnia F51.01 Active 8801303 Problem Other chronic pain G89.29 Active 70374553 Problem Mixed hyperlipidemia E78.2 Active 177752690 Problem Type 2 diabetes mellitus without complication, without long-term current use of insulin E11.9 Active 840186075 Problem Lumbago with sciatica, unspecified side M54.40 Active 80158932 Problem Gastroesophageal reflux disease without esophagitis K21.9 Active 018895509 ALLERGIES No Known Allergies SOCIAL HISTORY No smoking Hx information available PLAN OF CARE VITAL SIGNS MEDICATIONS No Known Medications RESULTS No Results PROCEDURES No Known procedures IMMUNIZATIONS No Known Immunizations
--- OUTSIDE RECORDS SUMMARY | 2017-05-01 11:19 | XMS REPORT ---
Author Author WILDA MAHONEY [facility] Address [address] [place] [address] Care Team Providers Care Analyst Geochemical Prospecting Name Role Phone WILDA MAHONEY Unavailable PROBLEMS Type Condition ICD9-CM Code [id number] Code Onset Dates Condition Status SNOMED Code Problem Hypothyroidism E03.9 Active 83961043 Problem Epidural hematoma S06.4X9A Active 914185034 Problem Essential hypertension, hypertension with unspecified goal I10 Active 97166888 Problem Dementia F03.90 Active 17908226 Problem Depression F32.9 Active 21510497 Problem Primary insomnia F51.01 Active 1104544 Problem Other chronic pain G89.29 Active 69850761 Problem Mixed hyperlipidemia E78.2 Active 557932831 Problem Type 2 diabetes mellitus without complication, without long-term current use of insulin E11.9 Active 635866070 Problem Lumbago with sciatica, unspecified side M54.40 Active 36960083 Problem Gastroesophageal reflux disease without esophagitis K21.9 Active 909009140 ALLERGIES Substance Reaction Event Type Date Status Mobic shortness of breath Drug Allergy September, Active Macrobid Unknown Drug Allergy September, Active Lisinopril shortness of breath Drug Allergy September, Active SOCIAL HISTORY Never Assessed PLAN OF CARE VITAL SIGNS Height 59 in 2016-10-15 Weight 120 lbs 2016-10-15 Temperature 98.2 degrees Fahrenheit 2016-10-15 Heart Rate 80 bpm 2016-10-15 Respiratory Rate 20 2016-10-15 BMI 24.23 kg/m2 2016-10-15 Blood pressure systolic 114 mmHg 2016-10-15 Blood pressure diastolic 80 mmHg 2016-10-15 MEDICATIONS Medication Instructions Dosage Frequency Start Date End Date Duration Status Melatonin 300 MCG Orally Once a day 1 tablet at bedtime as needed with food 24h Active Ultram 50 mg Orally 2 times a day 1 tablet as needed 12h 20 Jun, 2016 Active Amlodipine Besylate 5 mg Orally Once a day 1 tablet 24h Active Micardis 40 MG Orally Once a day 1 tablet 24h Active Levothyroxine Sodium 112 MCG Orally Once a day 1 tablet 24h 30 days Active OneTouch Ultra Test - subcutaneously one time test blood sugars September, Active OneTouch Ultra 2 w/Device subcutaneously Once a day test blood sugar 24h September, 30 days Active Omeprazole 20 mg Orally twice a day 1 capsule 12h Active DoubleDutchTouch UltraSoft Lancets - subcutaneously Once a day use to test blood sugar with 24h September, Active Bactrim DS 800-160 MG Orally Twice a day 1 tablet 12h September,September 10 day(s) Active Atorvastatin Calcium 40 TAKE ONE TABLET BY MOUTH DAILY 30 Active Atorvastatin Calcium 40 mg Orally Once a day 1 tablet 24h Active Lexapro 10 mg Orally Once a day 1 tablet 24h Jun, 30 day(s) Active Lexapro 10 TAKE ONE TABLET BY MOUTH DAILY 30 Active RESULTS Name Result Date Reference Range CULTURE, URINE 2016-10-15 Urine Culture, Routine Final report Result 1 Escherichia coli Antimicrobial Susceptibility UA LONG DIP (IN HOUSE) 2016-10-15 Lot # [id number] Exp date 09/28/17 Clarity cloudy Color yellow Odor none GLU negative RODDY negative KET trace SG >=1.030 BLO 2+ pH 6.0 Protein 2+ URO 0.2 NIT negative ELIEZER trace Lot # [id number] Exp date 07/2017 PROCEDURES Procedure Date Ordered Result Body Site URINALYSIS, AUTO, W/O SCOPE October 15, 2016 [facility] VISIT ESTABLISHED PATIENT October 15, 2016 LAB NOT BILLED BY [facility] October 15, 2016 IMMUNIZATIONS No Known Immunizations MEDICAL (GENERAL) HISTORY Type Description Date Medical History hypertension Medical History depression Medical History Diabetes Surgical History hysterectomy Surgical History Brain Surgery 08/2015 Surgical History left elbow surgery 2004 Hospitalization History Acute Renal Failure 12/2015 Hospitalization History surgery
--- OUTSIDE RECORDS SUMMARY | 2017-05-01 11:21 | XMS REPORT ---
Author Author JASON RODRÍGUEZ Organization [facility] Address [address] [place] [address] Care Team Providers Care Chrome Tanner Name Role Phone MIO RODRÍGUEZNETTE Unavailable PROBLEMS Type Condition ICD9-CM Code [id number] Code Onset Dates Condition Status SNOMED Code Problem Hypothyroidism E03.9 Active 15111364 Problem Epidural hematoma S06.4X9A Active 016199012 Problem Essential hypertension, hypertension with unspecified goal I10 Active 60608331 Problem Dementia F03.90 Active 44430016 Problem Depression F32.9 Active 00486749 Problem Primary insomnia F51.01 Active 1701626 Problem Other chronic pain G89.29 Active 98796718 Problem Mixed hyperlipidemia E78.2 Active 967975801 Problem Type 2 diabetes mellitus without complication, without long-term current use of insulin E11.9 Active 446870748 Problem Lumbago with sciatica, unspecified side M54.40 Active 62504323 Problem Gastroesophageal reflux disease without esophagitis K21.9 Active 925444713 ALLERGIES Substance Reaction Event Type Date Status Mobic shortness of breath Drug Allergy Jun, Active Macrobid Unknown Drug Allergy Jun, Active Lisinopril shortness of breath Drug Allergy Jun, Active SOCIAL HISTORY No smoking Hx information available PLAN OF CARE Activity Details Follow Up 2 Weeks Reason:diabetes VITAL SIGNS Height 59 in 2016-06-20 Weight 107.4 lbs 2016-06-20 Temperature 97.8 degrees Fahrenheit 2016-06-20 Heart Rate 70 bpm 2016-06-20 Respiratory Rate 20 2016-06-20 BMI 21.69 kg/m2 2016-06-20 Blood pressure systolic 102 mmHg 2016-06-20 Blood pressure diastolic 62 mmHg 2016-06-20 MEDICATIONS Medication Instructions Dosage Frequency Start Date End Date Duration Status Levothyroxine Sodium 137 MCG Orally Once a day 1 tablet 24h Active Lexapro 10 mg Orally Once a day 1 tablet 24h Jun, 30 day(s) Active Micardis 40 MG Orally Once a day 1 tablet 24h Active Ultram 50 mg Orally 2 times a day 1 tablet as needed 12h 20 Jun, 2016 Active Omeprazole 20 mg Orally twice a day 1 capsule 12h Active Atorvastatin Calcium 40 mg Orally Once a day 1 tablet 24h Active Amlodipine Besylate 5 mg Orally Once a day 1 tablet 24h Active GlyBURIDE 5 mg Orally Once a day 1 tablet with breakfast or the first main meal of the day 24h Jun, 30 day(s) Active Melatonin 300 MCG Orally Once a day 1 tablet at bedtime as needed with food 24h Active Tylenol/Codeine #3 300-30 MG Orally every 6 hrs 1 tablet as needed 6h May, Active RESULTS Name Result Date Reference Range GLUCOSE FINGERSTICK (IN HOUSE) 2016-06-20 GLU FINGERSTICK 108 PC 1 hour Lot # [id number] Exp date 01/19/2016 MICROALBUMIN, URINE (IN HOUSE) 2016-06-20 MICROALBUMIN normal Lot # [id number] Exp date 06/2017 Clarity Turbid Color yellow ALB 30 CRE 300 A:C (IN HOUSE) <30 Control + Control Lot # Exp UA LONG DIP (IN HOUSE) 2016-06-20 Lot # [id number] Exp date 01/2017 Clarity turbid Color yellow Odor none GLU negative RODDY 1+ KET trace SG 1.015 BLO negative pH 5.5 Protein negative URO 0.2 NIT negative ELIEZER negative Lot # Exp date TSH W/ FREE T4 2016-06-20 TSH 0.125 0.450-4.500 T4,Free(Direct) 1.93 0.82-1.77 T3 FREE 2016-06-20 T3, Free, Dialysis, LC/MS-MS LIPID PANEL 2016-06-20 Cholesterol, Total 258 100-199 Triglycerides 331 0-149 HDL Cholesterol 63 >39 VLDL Cholesterol Cresencio 66 5-40 LDL Cholesterol Calc 129 0-99 Comment: TSH W/ FREE T4 2016-06-20 TSH 0.125 0.450-4.500 T4,Free(Direct) 1.93 0.82-1.77 T3 FREE 2016-06-20 T3, Free, Dialysis, LC/MS-MS 2.60 LIPID PANEL 2016-06-20 Cholesterol, Total 258 100-199 Triglycerides 331 0-149 HDL Cholesterol 63 >39 VLDL Cholesterol Cresencio 66 5-40 LDL Cholesterol Calc 129 0-99 PROCEDURES Procedure Date Ordered Related Diagnosis Body Site GLUCOSE BLOOD TEST Jun 20, 2016 URINALYSIS, AUTO, W/O SCOPE Jun 20, 2016 VENIPUNCT, ROUTINE* Jun 20, 2016 [facility] Jun 20, 2016 MICROALBUMIN, SEMIQUANT Jun 20, 2016 Office Visit, Est Pt., Level 4 Jun 20, 2016 [facility] VISIT ESTABLISHED PATIENT Jun 20, 2016 IMMUNIZATIONS No Known Immunizations
--- OUTSIDE RECORDS SUMMARY | 2017-05-01 11:24 | XMS REPORT ---
Author Author NICO ANTONIO [facility] Address [address] [place] [address] Care Team Providers Care Metal Finisher Name Role Phone NICO ANTONIO Unavailable PROBLEMS Type Condition ICD9-CM Code [id number] Code Onset Dates Condition Status SNOMED Code Problem Hypothyroidism E03.9 Active 73504995 Problem Epidural hematoma S06.4X9A Active 329231957 Problem Essential hypertension, hypertension with unspecified goal I10 Active 16071606 Problem Dementia F03.90 Active 97684750 Problem Depression F32.9 Active 58877049 Problem Primary insomnia F51.01 Active 0935415 Problem Other chronic pain G89.29 Active 42561448 Problem Mixed hyperlipidemia E78.2 Active 757879696 Problem Type 2 diabetes mellitus without complication, without long-term current use of insulin E11.9 Active 971878321 Problem Lumbago with sciatica, unspecified side M54.40 Active 95226154 Problem Gastroesophageal reflux disease without esophagitis K21.9 Active 158465461 ALLERGIES No Known Allergies SOCIAL HISTORY No smoking Hx information available PLAN OF CARE VITAL SIGNS MEDICATIONS Medication Instructions Dosage Frequency Start Date End Date Duration Status Atorvastatin Calcium 40 mg Orally Once a day 1 tablet 24h Active RESULTS No Results PROCEDURES No Known procedures IMMUNIZATIONS No Known Immunizations
--- OUTSIDE RECORDS SUMMARY | 2017-05-01 11:28 | XMS REPORT ---
Author Author NICO ANTONIO [facility] Address [address] [place] [address] Care Team Providers Care Rn Training Name Role Phone NICO ANTONIO Unavailable PROBLEMS Type Condition ICD9-CM Code SVE56-GU Code Onset Dates Condition Status SNOMED Code Problem Hypothyroidism E03.9 Active 30636323 Problem Epidural hematoma S06.4X9A Active 280361171 Problem Essential hypertension, hypertension with unspecified goal I10 Active 00749087 Problem Dementia F03.90 Active 47674047 Problem Depression F32.9 Active 44635680 Problem Primary insomnia F51.01 Active 2456423 Problem Other chronic pain G89.29 Active 06685196 Problem Mixed hyperlipidemia E78.2 Active 068658750 Problem Type 2 diabetes mellitus without complication, without long-term current use of insulin E11.9 Active 362922229 Problem Lumbago with sciatica, unspecified side M54.40 Active 21516471 Problem Gastroesophageal reflux disease without esophagitis K21.9 Active 922862181 ALLERGIES Substance Reaction Event Type Date Status Mobic shortness of breath Drug Allergy September, Active Macrobid Unknown Drug Allergy September, Active Lisinopril shortness of breath Drug Allergy September, Active SOCIAL HISTORY Never Assessed PLAN OF CARE Activity Details Follow Up 3 Months Reason: VITAL SIGNS Height 59 in 2016-10-06 Weight 120 lbs 2016-10-06 Temperature 98.4 degrees Fahrenheit 2016-10-06 Heart Rate 88 bpm 2016-10-06 Respiratory Rate 18 2016-10-06 BMI 24.23 kg/m2 2016-10-06 Blood pressure systolic 110 mmHg 2016-10-06 Blood pressure diastolic 76 mmHg 2016-10-06 MEDICATIONS Medication Instructions Dosage Frequency Start Date End Date Duration Status [facility] Ultra 2 w/Device subcutaneously Once a day test blood sugar 24h September, 30 days Active OneTouch Ultra Test - subcutaneously one time test blood sugars September, Active Lexapro 10 mg Orally Once a day 1 tablet 24h Jun, 30 day(s) Active OneTouch UltraSoft Lancets - subcutaneously Once a day use to test blood sugar with 24h September, Active Omeprazole 20 mg Orally twice a day 1 capsule 12h Active Ultram 50 mg Orally 2 times a day 1 tablet as needed 12h Jun, Active Melatonin 300 MCG Orally Once a day 1 tablet at bedtime as needed with food 24h Active Micardis 40 MG Orally Once a day 1 tablet 24h Active Levothyroxine Sodium 112 MCG Orally Once a day 1 tablet 24h 30 days Active Amlodipine Besylate 5 mg Orally Once a day 1 tablet 24h Active Atorvastatin Calcium 40 mg Orally Once a day 1 tablet 24h Active RESULTS No Results PROCEDURES Procedure Date Ordered Result Body Site [facility] VISIT ESTABLISHED PATIENT October 06, 2016 IMMUNIZATIONS No Known Immunizations MEDICAL (GENERAL) HISTORY Type Description Date Medical History hypertension Medical History depression Medical History Diabetes Surgical History hysterectomy Surgical History Brain Surgery 08/2015 Surgical History left elbow surgery 2004 Hospitalization History Acute Renal Failure 12/2015 Hospitalization History surgery
--- OUTSIDE RECORDS SUMMARY | 2017-05-01 11:29 | XMS REPORT ---
Author Author JASON RODRÍGUEZ Organization [facility] Address [address] [place] [address] Care Team Providers Care Frog Farmer Name Role Phone JASON RODRÍGUEZ Unavailable PROBLEMS Type Condition ICD9-CM Code ZIS08-SM Code Onset Dates Condition Status SNOMED Code Problem Hypothyroidism E03.9 Active 18093036 Problem Epidural hematoma S06.4X9A Active 904865633 Problem Essential hypertension, hypertension with unspecified goal I10 Active 43283523 Problem Dementia F03.90 Active 82326666 Problem Depression F32.9 Active 81600353 Problem Primary insomnia F51.01 Active 9619017 Problem Other chronic pain G89.29 Active 23312206 Problem Mixed hyperlipidemia E78.2 Active 703034555 Problem Type 2 diabetes mellitus without complication, without long-term current use of insulin E11.9 Active 212093923 Problem Lumbago with sciatica, unspecified side M54.40 Active 75624236 Problem Gastroesophageal reflux disease without esophagitis K21.9 Active 882112777 ALLERGIES No Known Allergies SOCIAL HISTORY No smoking Hx information available PLAN OF CARE VITAL SIGNS MEDICATIONS Medication Instructions Dosage Frequency Start Date End Date Duration Status Levothyroxine Sodium 112 MCG Orally Once a day 1 tablet 24h 30 days Active RESULTS No Results PROCEDURES No Known procedures IMMUNIZATIONS No Known Immunizations
--- OUTSIDE RECORDS SUMMARY | 2017-05-01 11:33 | XMS REPORT ---
Author Author NICO ANTONIO [facility] Address [address] [place] [address] Care Team Providers Care Health And Human Performance Professor Name Role Phone NICO ANTONIO Unavailable PROBLEMS Type Condition ICD9-CM Code PQI62-DV Code Onset Dates Condition Status SNOMED Code Problem Hypothyroidism E03.9 Active 78029817 Problem Epidural hematoma S06.4X9A Active 400528739 Problem Essential hypertension, hypertension with unspecified goal I10 Active 09952018 Problem Dementia F03.90 Active 08569886 Problem Depression F32.9 Active 80248782 Problem Primary insomnia F51.01 Active 4976385 Problem Other chronic pain G89.29 Active 00454552 Problem Mixed hyperlipidemia E78.2 Active 345701370 Problem Type 2 diabetes mellitus without complication, without long-term current use of insulin E11.9 Active 307752470 Problem Lumbago with sciatica, unspecified side M54.40 Active 70916911 Problem Gastroesophageal reflux disease without esophagitis K21.9 Active 722557631 ALLERGIES No Information SOCIAL HISTORY Never Assessed PLAN OF CARE VITAL SIGNS MEDICATIONS No Known Medications RESULTS Name Result Date Reference Range TSH 2016-10-08 TSH 0.745 0.450-4.500 LIPID PANEL 2016-10-08 Cholesterol, Total 250 100-199 Triglycerides 137 0-149 HDL Cholesterol 69 >39 VLDL Cholesterol Cresencio 27 5-40 LDL Cholesterol Calc 154 0-99 Comment: CMP 2016-10-08 Glucose, Serum 90 65-99 BUN 24 8-27 Creatinine, Serum 1.07 0.57-1.00 eGFR If NonAfricn Am 48 >59 eGFR If Africn Am 56 >59 BUN/Creatinine Ratio 22 12-28 Sodium, Serum 144 134-144 Potassium, Serum 4.6 3.5-5.2 Chloride, Serum 103 96-106 Carbon Dioxide, Total 20 18-29 Calcium, Serum 9.8 8.7-10.3 Protein, Total, Serum 6.9 6.0-8.5 Albumin, Serum 4.2 3.5-4.7 Globulin, Total 2.7 1.5-4.5 A/G Ratio 1.6 1.2-2.2 Bilirubin, Total 0.7 0.0-1.2 Alkaline Phosphatase, S 85 39-117 AST (SGOT) 28 0-40 ALT (SGPT) 10 0-32 PROCEDURES Procedure Date Ordered Result Body Site LAB NOT BILLED BY [facility] October 08, 2016 VENIPUNCT, ROUTINE* October 08, 2016 IMMUNIZATIONS No Known Immunizations MEDICAL (GENERAL) HISTORY Type Description Date Medical History hypertension Medical History depression Medical History Diabetes Surgical History hysterectomy Surgical History Brain Surgery 08/2015 Surgical History left elbow surgery 2004 Hospitalization History Acute Renal Failure 12/2015 Hospitalization History surgery
--- NOTE | 2017-05-01 11:44 | ED Integumentary General ---
General Chief Complaint: Skin/Wound Problems Stated Complaint: POSS SPIDER BITES Nursing Triage Note: PATIENT STATES THAT SHE HAS AN AREA ON HER LOWER LEFT BUTTOCKS THAT HAS BEEN PAINFUL AND BLEEDING FOR 4 DAYS. SHE TOLD HER DAUGHTER ABOUT IT TODAY AND DAUGHTER BROUGHT HER TO ER FOR POSSIBLE SPIDER BITE. STATES THAT THERE ARE A LOT OF SPIDERS WHERE THEY LIVE. PATIENT STATES SHE KILLED SPIDER IN HER ROOM A FEW DAYS AGO. Source: patient Exam Limitations: no limitations History of Present Illness Time seen by provider: 11:30 Initial Comments Here with complaint of wound on the left buttock that they're concerned as a spider bite. Apparently it formed a small bump area and then started draining some blood and purulent material. She believes that this may be a spider bite. Currently covered with a Band-Aid. No other significant medical problems except for diabetes per the patient. Denies fever or chills. Timing/Duration: getting worse, other (4 days) Severity: mild Location: torso (buttocks on the left) Possible Cause: insect bite Associated Symptoms: edema, No fever, swelling/mass/lumps Allergies and Home Medications Allergies Coded Allergies: lisinopril (Verified Allergy, Mild, SWELLING, COULDN'T BREATHE, 01/12/16) Home Medications Amlodipine Besylate 5 Mg Tablet, 5 MG PO DAILY, Ref 0 (Reported) Amoxicillin/Potassium Clav 1 Each Tablet, 1 EACH PO BID, #14 Prescribed by: ÓSCAR GUILLAUME on 09/28/16 1420 Atorvastatin Calcium 40 Mg Tablet, 40 MG PO DAILY, Ref 0 (Reported) Glipizide 5 Mg Tablet, 5 MG PO, (Reported) Levothyroxine Sodium 112 Mcg Tablet, 112 MCG PO, (Reported) Melatonin 5 Mg Tablet, 5 MG PO, (Reported) Omeprazole 20 Mg Capsule.dr, 1 TAB PO BID, (Reported) Telmisartan 80 Mg Tablet, 80 MG PO DAILY, Ref 0 (Reported) Constitutional: see HPI, No chills, No fever Respiratory: no symptoms reported Cardiovascular: no symptoms reported Gastrointestinal: no symptoms reported Skin: see HPI, change in color, lesions Psychiatric/Neurological: No Symptoms Reported Past Gtgmhyx-Lvapwm-Evwyxl Hx Patient Social History Alcohol Use: Denies Use Recreational Drug Use: No Smoking Status: Never a Smoker Recent Foreign Travel: No Contact w/Someone Who Travel: No Recent Infectious Disease Expo: No Recent Hopitalizations: Yes Physical Abuse: No Sexual Abuse: No Immunizations Up To Date Tetanus Booster (TDap): Less than 5yrs Date of Pneumonia Vaccine: Mar 01, 2010 Date of Influenza Vaccine: Mar 01, 2015 Seasonal Allergies Seasonal Allergies: No Surgeries History of Surgeries: Yes (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, SURGERY ON BOTH FEET , PINS IN BOTH FEET) Surgeries: Oophorectomy, Orthopedic Respiratory History of Respiratory Disorde: No Cardiovascular History of Cardiac Disorders: Yes Cardiac Disorders: High Cholesterol, Hypertension Neurological History of Neurological Disord: Yes (Fall with head bleed) Neurological Disorders: Traumatic Brain Injury 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 System Hx 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 Disorders: No Sexually Transmitted Disease: No HIV/AIDS: No Genitourinary History of Genitourinary Disor: Yes Genitourinary Disorders: Renal Failure Gastrointestinal History of Gastrointestinal Di: No Musculoskeletal History of Musculoskeletal Dis: No Musculoskeletal Disorders: Arthritis Endocrine History of Endocrine Disorders: Yes Endocrine Disorders: Hyperthyroidism, Diabetes, Non-Insulin dep HEENT Hearing Impairment: Hard of Hearing Cancer History of Cancer: No Psychosocial History of Psychiatric Problem: Yes Behavioral Health Disorders: Depression Suicide Risk Score: 0 Integumentary History of Skin or Integumenta: No Blood Transfusions History of Blood Disorders: No Reviewed Nursing Assessment Reviewed/Agree w Nursing PMH: Yes Family Medical History Significant Family History: Heart Disease, COPD Family Medial History: Cardiovascular disease DAUGHTER Diabetes mellitus DAUGHTER Respiratory disorder DAUGHTER Physical Exam Vital Signs Vital Sign - Last 12Hours 05/01/17 11:27 Temp 98.1 Pulse 80 Resp 20 B/P (MAP) 158/68 (98) Pulse Ox 93 O2 Delivery Room Air Capillary Refill : Less Than 3 Seconds General Appearance: WD/WN, no apparent distress Cardiovascular: regular rate, rhythm, no murmur Respiratory: lungs clear, normal breath sounds Skin: warm/dry Skin Problem Location: other (left buttock) Skin Problem Character: drainage, erythema, lesion, other (2 small lesions 1 with central core of approximately 2-3 mm surrounded by 1 cm of erythema with second smaller lesion just distal approximately 1.5 cm away also surrounded by erythema.) Progress/Results/Core Measures Results/Orders Vital Signs/I&O Vital Sign - Last 12Hours 05/01/17 11:27 Temp 98.1 Pulse 80 Resp 20 B/P (MAP) 158/68 (98) Pulse Ox 93 O2 Delivery Room Air Blood Pressure Mean: 98 Progress Note : Progress Note Seen and evaluated. We will treat subjectively a draining abscess with cellulitis. We will initiate antibiotic treatment because of history of diabetes. This will be done on an outpatient basis. Discharged home with return precautions. Patient verbalize understanding instructions and agreement with plan. Departure Impression Impression: Primary Impression: Soft tissue infection Additional Impression: Spider bite wound Qualified Codes: T63.304A - Toxic effect of unspecified spider venom, undetermined, initial encounter Disposition: HOME, SELF-CARE Condition: Improved Departure-Patient Inst. Decision time for Depature: 11:56 Referrals: NICO ANTONIO MD (PCP/Family) Primary Care Physician Patient Instructions: Cellulitis (Skin Infection), Adult (DC) Add. Discharge Instructions: All discharge instructions reviewed with patient and/or family. Voiced understanding. Take medications as directed. Use antibiotic ointment and Band-Aid over wound and change twice daily. Keep wound clean and otherwise. Follow-up with your Dr. in a few days for recheck. Return for worse pain, fever, vomiting, weakness , increasing redness or swelling or other concerns as needed. Scripts Sulfamethoxazole/Trimethoprim (Sulfamethoxazole-Tmp Ds Tablet) 1 Each Tablet 1 EACH PO BID, #14 TAB 0 Refills Prov: HILDA BROUSSARD MD 05/01/17 HILDA BROUSSARD MD May 01, 2017 11:44
[2017-05-01] MEDS ORDERED: SULF-222 PO (11:57)
[2017-05-01 12:01] VITALS: BP 158/68
== END 2017-05-01 12:00 | disposition home or self-care (01) ==
LOC: EDUNIT# 11:03 → ER 11:05
DX: S30.860A Insect bite (nonvenomous) of lower back and pelvis, initial encounter (principal); L08.89 Other specified local infections of the skin and subcutaneous tissue; F32.9 Major depressive disorder, single episode, unspecified; E03.9 Hypothyroidism, unspecified; E11.9 Type 2 diabetes mellitus without complications; E78.00 Pure hypercholesterolemia, unspecified; Z90.722 Acquired absence of ovaries, bilateral; Z87.828 Personal history of other (healed) physical injury and trauma; W57.XXXA Bitten or stung by nonvenomous insect and other nonvenomous arthropods, initial encounter
CPT/HCPCS: 99282

== ENCOUNTER 2018-01-14 16:11 | Observation (INO) | payer MEDICARE, MEDICAID ==
[~2018-01-14] VITALS: Ht 157.5 cm; Wt 55.3 kg
[~2018-01-14 16:11] MED LIST changes: +SULF-222 PO
[2018-01-14] MEDS ORDERED: NS IV 1000 ML 1,000 ML IV ONE (16:51)
[2018-01-14 16:52] LABS: BASOPHILS % (AUTO) 0 % (0-10); EOSINOPHILS % (AUTO) 0 % (0-10); HEMATOCRIT 38 % (35-52); LYMPHOCYTES # (AUTO) 1.1 X 10^3 (1.0-4.0); LYMPHOCYTES % (AUTO) 11 % (12-44); MEAN CORPUSCULAR HEMOGLOBIN 30 PG (25-34); MEAN CORPUSCULAR HGB CONC 34 G/DL (32-36); MEAN CORPUSCULAR VOLUME 87 FL (80-99); MEAN PLATELET VOLUME 10.2 FL (7.4-10.4); MONOCYTES # (AUTO) 0.5 X 10^3 (0.0-1.0); MONOCYTES % (AUTO) 5 % (0-12); NEUTROPHILS # (AUTO) 8.8 X 10^3 (1.8-7.8); NEUTROPHILS % (AUTO) 84 % (42-75); PLATELET COUNT 249 10^3/uL (130-400); RED BLOOD COUNT 4.39 10^6/uL (4.35-5.85); RED CELL DISTRIBUTION WIDTH 13.8 % (10.0-14.5); WHITE BLOOD COUNT 10.5 10^3/uL (4.3-11.0)
--- NOTE | 2018-01-14 17:00 | ED General ---
General Chief Complaint: Altered Mental Status Stated Complaint: FALL Nursing Triage Note: PT PRESENTS TO ED WITH HEALTH CARE WORKER WITH COMPLAINTS OF INCREASED CONFUSION/HALLUCINATIONS. PT DAUGHTER REPORTS PT SEEMED INCREASINGLY TIRED LAST NIGHT. PER PT DAUGHTER- PT LEFT HER DOGS OUTSIDE OVERNIGHT-WHICH SHE DOESNT NONRMALLY DO, PT ALSO DID NOT CHANGE INTO [place]. THIS AM PT DAUGHTER REPORTS PT WAS TALKING ABOUT SEEING ANG[place]S [place]. PT DAUGHTER CALLED HEALTHCARE WORKER FOR HELP AFTER PT DAUGHTER FOUND PT ON KITCHEN FLOOR AROUND 1520. PT ALERT TO SELF UPON ARRIVAL BUT CANNOT REPORTS WHERE SHE IS OR WHAT TIME OF DAY IT IS. PT WAS DIAGNOSED WITH A UTI LAST THURSDAY AND PLACED ON ANTIBIOTICS Nursing Sepsis Screen: No Definite Risk Source of Information: Patient, Caregiver Exam Limitations: Physical Impairments History of Present Illness Date Seen by Provider: Jan 14, 2018 Time Seen by Provider: 16:42 Initial Comments Patient has a complicated presentation due to poor historian and confusion. Caregiver reports that the patient was treated for urinary tract last week and was doing better up until 2 days ago. Yesterday she was much more confused and fatigued. Patient seemed to be Seeing things that weren't there talking about things that were happening. She then stated she wanted to go to bed and went to bed. She went to bed without getting her dogs which is very unusual for the patient. No report of fever or vomiting. She apparently did take her medicines for the UTI as directed. She is normally seen at the [facility]. Caregiver reports the daughter and stated that the patient fell out of bed last night but there is no more history on that. Patient denies pain anywhere and does not have any obvious injuries. Timing/Duration: 1-2 Days Severity: Moderate Associated Systoms: No Fever/Chills; Malaise; No Nausea/Vomiting; Weakness Allergies and Home Medications Allergies Coded Allergies: lisinopril (Verified Allergy, Mild, SWELLING, COULDN'T BREATHE, 01/12/16) Home Medications Amlodipine Besylate 5 Mg Tablet, 5 MG PO DAILY, (Reported) Amoxicillin/Potassium Clav 1 Each Tablet, 1 EACH PO BID Prescribed by: ÓSCAR GUILLAUME on 09/28/16 1420 Atorvastatin Calcium 40 Mg Tablet, 40 MG PO DAILY, (Reported) Omeprazole 20 Mg Capsule.dr, 1 TAB PO BID, (Reported) Sulfamethoxazole/Trimethoprim 1 Each Tablet, 1 EACH PO BID Prescribed by: HILDA BROUSSARD on 05/01/17 7786 Patient Home Medication List Home Medication List Reviewed: Yes Review of Systems Constitutional: see HPI; No chills, No fever Unable to complete review of systems due to altered mental status and poor historian. Past Csqyuza-Nwtmda-Albnbc Hx Past Med/Social Hx: Reviewed Nursing Past Med/Soc Hx Patient Social History Alcohol Use: Denies Use Recreational Drug Use: No Smoking Status: Never a Smoker 2nd Hand Smoke Exposure: No Recent Foreign Travel: No Contact w/Someone Who Travel: No Recent Infectious Disease Expo: No Recent Hopitalizations: Yes Physical Abuse: No Sexual Abuse: No Mistreated: No Fear: No Immunizations Up To Date Tetanus Booster (TDap): Less than 5yrs Date of Pneumonia Vaccine: Mar 01, 2010 Date of Influenza Vaccine: Mar 01, 2015 Seasonal Allergies Seasonal Allergies: No Past Medical History Surgeries: Yes (SURGERY/PINS ON RODDY FEET, BRAIN SX-BEIGN TUMOR) Oophorectomy, Orthopedic Respiratory: No Cardiac: Yes High Cholesterol, Hypertension Neurological: Yes (Fall with head bleed) Traumatic Brain Injury 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 Disorders: No Sexually Transmitted Disease: No HIV/AIDS: No Genitourinary: Yes Renal Failure Gastrointestinal: Yes Gastroesophageal Reflux Musculoskeletal: No Arthritis Endocrine: Yes Hypothyroidsim, Diabetes, Non-Insulin dep Hearing Impairment: Hard of Hearing Cancer: No Psychosocial: Yes Depression Nursing Suicide Risk Score: 0 Integumentary: No Blood Disorders: No Family Medical History Reviewed Nursing Family Hx Cardiovascular disease DAUGHTER Diabetes mellitus DAUGHTER Respiratory disorder DAUGHTER Heart Disease, COPD Physical Exam-Suspected Sepsis Physical Exam Vital Signs Vital Signs - First Documented 01/14/18 16:20 Temp 96.5 Pulse 89 Resp 16 B/P (MAP) 143/55 (84) Pulse Ox 95 Capillary Refill : Less Than 3 Seconds Blood Pressure Mean: 84 Height, Weight, BMI Height: 5'2.00" Weight: 140lbs. 0oz. [id number]; 20.9 BMI Method:Stated General Appearance: No Apparent Distress, WD/WN HEENT: PERRL/EOMI, Pharynx Normal Neck: Non Tender, Supple Respiratory: Lungs Clear, Normal Breath Sounds Cardiovascular: Regular Rate, Rhythm, No Murmur Gastrointestinal: Non Tender, Soft Back: Normal Inspection, No CVA Tenderness, No Vertebral Tenderness Extremity: Normal Range of Motion, Non Tender Neurologic/Psychiatric: Alert Skin: normal color, warm/dry Focused Exam Lactate Level 01/14/18 16:55: Lactic Acid Level 1.15 Lactic Acid Level Laboratory Tests Test 01/14/18 16:55 Lactic Acid Level 1.15 MMOL/L (0.50-2.00) Progress/Results/Core Measures Suspected Sepsis Recent Fever Within 48 Hours: No Infection Criteria Present: None New/Unexplained Altered Menta: Yes Sepsis Screen: No Definite Risk SIRS Temperature:96.5 Pulse: 89 Respiratory Rate: 16 Laboratory Tests 01/14/18 16:41: White Blood Count 10.5 Blood Pressure 143 /55 Mean: 84 01/14/18 16:55: Lactic Acid Level 1.15 Laboratory Tests 01/14/18 16:41: Creatinine 1.70H, Platelet Count 249, Total Bilirubin 0.3 Results/Orders Lab Results Laboratory Tests Test 01/14/18 16:41 01/14/18 16:55 01/14/18 17:00 Range/Units White Blood Count 10.5 4.3-11.0 10^3/uL Red Blood Count 4.39 4.35-5.85 10^6/uL Hemoglobin 13.0 11.5-16.0 G/DL Hematocrit 38 35-52 % Mean Corpuscular Volume 87 80-99 FL Mean Corpuscular Hemoglobin 30 25-34 PG Mean Corpuscular Hemoglobin Concent 34 32-36 G/DL Red Cell Distribution Width 13.8 10.0-14.5 % Platelet Count 249 130-400 10^3/uL Mean Platelet Volume 10.2 7.4-10.4 FL Neutrophils (%) (Auto) 84 H 42-75 % Lymphocytes (%) (Auto) 11 L 12-44 % Monocytes (%) (Auto) 5 0-12 % Eosinophils (%) (Auto) 0 0-10 % Basophils (%) (Auto) 0 0-10 % Neutrophils # (Auto) 8.8 H 1.8-7.8 X 10^3 Lymphocytes # (Auto) 1.1 1.0-4.0 X 10^3 Monocytes # (Auto) 0.5 0.0-1.0 X 10^3 Eosinophils # (Auto) 0.0 0.0-0.3 10^3/uL Basophils # (Auto) 0.0 0.0-0.1 10^3/uL Sodium Level 137 135-145 MMOL/L Potassium Level 3.6 3.6-5.0 MMOL/L Chloride Level 105 98-107 MMOL/L Carbon Dioxide Level 21 21-32 MMOL/L Anion Gap 11 5-14 MMOL/L Blood Urea Nitrogen 28 H 7-18 MG/DL Creatinine 1.70 H 0.60-1.30 MG/DL Estimat Glomerular Filtration Rate 29 BUN/Creatinine Ratio 16 Glucose Level 43 *L 70-105 MG/DL Calcium Level 10.1 8.5-10.1 MG/DL Corrected Calcium 8.5-10.1 MG/DL Total Bilirubin 0.3 0.1-1.0 MG/DL Aspartate Amino Transf (AST/SGOT) 46 H 5-34 U/L Alanine Aminotransferase (ALT/SGPT) 31 0-55 U/L Alkaline Phosphatase 93 40-136 U/L Total Creatine Kinase 263 H 29-168 U/L Total Protein 8.0 6.4-8.2 GM/DL Albumin 4.6 H 3.2-4.5 GM/DL Lactic Acid Level 1.15 0.50-2.00 MMOL/L Urine Color YELLOW Urine Clarity CLEAR Urine pH 5 5-9 Urine Specific [place] 1.025 H 1.016-1.022 Urine Protein 2+ H NEGATIVE Urine Glucose (UA) NEGATIVE NEGATIVE Urine Ketones NEGATIVE NEGATIVE Urine Nitrite POSITIVE H NEGATIVE Urine Bilirubin NEGATIVE NEGATIVE Urine Urobilinogen NORMAL NORMAL MG/DL Urine Leukocyte Esterase 2+ H NEGATIVE Urine RBC (Auto) 2+ H NEGATIVE Urine RBC 0-2 /HPF Urine WBC 10-25 H /HPF Urine Squamous Epithelial Cells 0-2 /HPF Urine Crystals NONE /LPF Urine Bacteria MODERATE H /HPF Urine Casts NONE /LPF Urine Mucus NEGATIVE /LPF Urine Culture Indicated YES My Orders Orders - HILDA BROUSSARD MD Blood Culture (01/14/18 16:45) Lactic Acid Analyzer (01/14/18 16:45) Saline Lock/Iv-Start (01/14/18 16:51) Ns Iv 1000 Ml (Sodium Chloride 0.9%) (01/14/18 16:51) Creatine Kinase (01/14/18 16:51) D50w (Emergency) Syringe (Dextrose 50% 5 (01/14/18 17:30) Ceftriaxone Injection (Rocephin Injectio (01/14/18 18:15) Medications Given in ED Current Medications Medications Dose Ordered Sig/Kevin Route Start Time Stop Time Status Last Admin Dose Admin Dextrose 50 ml ONCE ONCE IV 01/14/18 17:30 01/14/18 17:31 DC 01/14/18 17:25 50 ML Sodium Chloride 1,000 ml @ 0 mls/hr Q0M ONCE IV 01/14/18 16:51 01/14/18 16:53 DC 01/14/18 17:24 0 MLS/HR Vital Signs/I&O 01/14/18 16:20 Temp 96.5 Pulse 89 Resp 16 B/P (MAP) 143/55 (84) Pulse Ox 95 Capillary Refill : Less Than 3 Seconds Blood Pressure Mean: 84 Progress Note : Progress Note Seen and evaluated. IV, labs, UA, blood cultures and lactic acid ordered. We will get a chest x-ray and CT of the head. Normal saline 500 mL bolus. Monitor patient. Blood sugar noted to be low. One amp of D50 given. 1800: Overall doing better pending UA. Crackers and sugar fluids given. 1810: UA shows significant positive urinary tract infection. Patient be admitted. Rocephin 1 g IV given. I did discuss the case with Dr. Gutierrez and she accepts patient for admission, observation status. Patient and family agree with plan. Diagnostic Imaging Diagonstic Imaging: Xray Plain Films/CT/US/NM/MRI: chest Comments VIA [facility], [facility]. [place], [place] NAME: JOSE CUBA [facility] REC#: [id number] PT STATUS: REG ER : 1935 PHYSICIAN: LIZABETH SERRANO [employer] ADMIT DATE: 01/14/18/ER Draft Date of Exam:01/14/18 CHEST 1 VIEW, AP/PA ONLY EXAMINATION: Portable erect AP chest at 5:40 p.m. INDICATION: Fell, confusion. FINDINGS: The heart size is within normal limits and stable when compared to 03/27/2017. The lungs are generally clear. There is no sign of failure, pneumonia, or pleural effusion to suggest an acute abnormality. The mediastinum is not widened. The osseous structures are intact. IMPRESSION: There is no evidence for an acute cardiopulmonary abnormality. Dictated on workstation # [id number] Dict: 01/14/18 175 Trans: 01/14/18 175 [id number] Interpreted by: VIVIAN DUBON MD Electronically signed by: Reviewed: Reviewed by Me Diagonstic Imaging: CT Plain Films/CT/US/NM/MRI: head Comments NAME: JOSE CUBA [facility] REC#: [id number] PT STATUS: REG ER : 1935 PHYSICIAN: LIZABETH SERRANO [employer] FABRICATOR ADMIT DATE: 01/14/18/ER Draft Date of Exam:01/14/18 CT HEAD WO PROCEDURE: CT head without contrast. TECHNIQUE: Multiple contiguous axial images were obtained through the brain without the use of intravenous contrast. INDICATION: Fell, confusion. FINDINGS: There is no mass, shift of the midline, or hemorrhage to suggest an acute intracranial abnormality. The ventricles are prominent but similar in size to the prior exam of 03/27/2017. The cortical atrophy seen previously is again evident and has not progressed. The prior exam also noted calcifications in the basal ganglia bilaterally, in the dentate nuclei bilaterally, and near the marion-white junction of the periventricular white matter bilaterally. Those findings are again evident and no different. The bone windows again show that there has been a prior craniotomy in the right frontal and parietal region. There is no fracture or acute bony abnormality evident. The orbits and sinuses were not visualized in their entirety. There does appear to be severe left maxillary sinusitis and mild right maxillary sinusitis. The sinuses, where visualized, are otherwise clear. The orbits are generally unremarkable. IMPRESSION: 1. There is no evidence for an acute intracranial abnormality. If clinical concern regarding an underlying abnormality persists, then MRI would be recommended for further study. 2. There are postsurgical changes consistent with prior right frontoparietal craniotomy. The diffuse calcifications through the brain seen previously are again evident and no different. Dictated on workstation # [id number] Dict: 01/14/18 1754 Trans: 01/14/18 1800 [id number] Interpreted by: VIVIAN DUBON MD Electronically signed by: Reviewed: Reviewed by Me Departure Communication (Admissions) Time/Spoke to Admitting Phy: 18:10 Impression Primary Impression: Urinary tract infection Qualified Codes: N30.00 - Acute cystitis without hematuria Additional Impressions: Acute dehydration Altered mental status Qualified Codes: R41.82 - Altered mental status, unspecified Hypoglycemia Disposition: 01 HOME, SELF-CARE Condition: Improved Admissions Decision to Admit Reason: Admit from ER (General) Decision to Admit/Date: Jan 14, 2018 Time/Decision to Admit Time: 18:10 Departure-Patient Inst. Referrals: NICO ANTONIO MD (PCP/Family) Primary Care Physician HILDA BROUSSARD MD Jan 14, 2018 17:00
[2018-01-14 17:11] LABS: ALANINE AMINOTRANSFERASE 31 U/L (0-55); ALBUMIN 4.6 GM/DL (3.2-4.5); ALKALINE PHOSPHATASE 93 U/L (40-136); BILIRUBIN,TOTAL 0.3 MG/DL (0.1-1.0); BUN/CREATININE RATIO 16; CALCIUM 10.1 MG/DL (8.5-10.1); CARBON DIOXIDE 21 MMOL/L (21-32); CHLORIDE 105 MMOL/L (98-107); GFR ESTIMATED 29; POTASSIUM 3.6 MMOL/L (3.6-5.0); SODIUM 137 MMOL/L (135-145)
[2018-01-14 17:16] LABS: GLUCOSE 43 MG/DL (70-105)
[2018-01-14 17:21] LABS: BILIRUBIN,URINE NEGATIVE (NEGATIVE); CLARITY,URINE CLEAR; COLOR,URINE YELLOW; GLUCOSE, URINE (UA) NEGATIVE (NEGATIVE); KETONES,URINE NEGATIVE (NEGATIVE); LEUKOCYTE ESTERASE ,URINE 2+ (NEGATIVE); NITRITE,URINE POSITIVE (NEGATIVE); PH,URINE 5 (5-9); PROTEIN,URINE 2+ (NEGATIVE); UROBILINOGEN,URINE NORMAL (NORMAL)
[2018-01-14] MEDS ORDERED: DEXTROSE 50% 50 ML (IMS) SYR IV ONE (17:30)
--- NOTE | 2018-01-14 17:57 | Diagnostic Imaging Report ---
EXAMINATION: Portable erect AP chest at 5:40 p.m. INDICATION: Fell, confusion. FINDINGS: The heart size is within normal limits and stable when compared to 03/27/2017. The lungs are generally clear. There is no sign of failure, pneumonia, or pleural effusion to suggest an acute abnormality. The mediastinum is not widened. The osseous structures are intact. IMPRESSION: There is no evidence for an acute cardiopulmonary abnormality. Dictated by: Dictated on workstation # [id number]
[2018-01-14 18:00] LABS: BACTERIA,URINE MODERATE /HPF; RBC,URINE 0-2 /HPF; SQUAMOUS EPITHELIAL CELL,UR 0-2 /HPF
--- NOTE | 2018-01-14 18:00 | Diagnostic Imaging Report ---
PROCEDURE: CT head without contrast. TECHNIQUE: Multiple contiguous axial images were obtained through the brain without the use of intravenous contrast. INDICATION: Fell, confusion. FINDINGS: There is no mass, shift of the midline, or hemorrhage to suggest an acute intracranial abnormality. The ventricles are prominent but similar in size to the prior exam of 03/27/2017. The cortical atrophy seen previously is again evident and has not progressed. The prior exam also noted calcifications in the basal ganglia bilaterally, in the dentate nuclei bilaterally, and near the marion-white junction of the periventricular white matter bilaterally. Those findings are again evident and no different. The bone windows again show that there has been a prior craniotomy in the right frontal and parietal region. There is no fracture or acute bony abnormality evident. The orbits and sinuses were not visualized in their entirety. There does appear to be severe left maxillary sinusitis and mild right maxillary sinusitis. The sinuses, where visualized, are otherwise clear. The orbits are generally unremarkable. IMPRESSION: 1. There is no evidence for an acute intracranial abnormality. If clinical concern regarding an underlying abnormality persists, then MRI would be recommended for further study. 2. There are postsurgical changes consistent with prior right frontoparietal craniotomy. The diffuse calcifications through the brain seen previously are again evident and no different. Dictated by: Dictated on workstation # [id number]
[2018-01-14] MEDS ORDERED: cefTRIAXone FOR IV USE 1,000 MG in NS (IVPB) 50 ML IV ONE (18:15)
[2018-01-14 18:41] VITALS: BP 176/77
[2018-01-14] MEDS ORDERED: CATHETER FLUSH 10 ML SYR IV PRN (19:00)
[2018-01-14 20:24] VITALS: BP 155/66
[2018-01-14 20:47] VITALS: BP 155/79
[2018-01-14] MEDS ORDERED: RT-ALBUTEROL SULF 2.5 MG/3 ML PRE-MIX VIAL INH PRN (21:00)
[2018-01-14] MEDS: NS IV 1000 ML 1,000 ML IV SCH (21:06)
[2018-01-14] MEDS: inSUlin ASPART (NovoLOG) 1 UNIT/0.01 ML (CHARGE PER UNIT) SC SCH (21:27)
[2018-01-14 23:04] VITALS: BP 136/64
[2018-01-15] MEDS: NS IV 1000 ML 1,000 ML IV SCH (00:55)
[2018-01-15 04:04] VITALS: BP 137/73
[2018-01-15 06:12] LABS: BASOPHILS % (AUTO) 0 % (0-10); EOSINOPHILS # (AUTO) 0.1 10^3/uL (0.0-0.3); EOSINOPHILS % (AUTO) 1 % (0-10); HEMATOCRIT 35 % (35-52); HEMOGLOBIN 11.4 G/DL (11.5-16.0); LYMPHOCYTES # (AUTO) 1.8 X 10^3 (1.0-4.0); LYMPHOCYTES % (AUTO) 30 % (12-44); MEAN CORPUSCULAR HEMOGLOBIN 29 PG (25-34); MEAN CORPUSCULAR HGB CONC 33 G/DL (32-36); MEAN CORPUSCULAR VOLUME 88 FL (80-99); MEAN PLATELET VOLUME 10.6 FL (7.4-10.4); MONOCYTES # (AUTO) 0.6 X 10^3 (0.0-1.0); MONOCYTES % (AUTO) 11 % (0-12); NEUTROPHILS # (AUTO) 3.4 X 10^3 (1.8-7.8); NEUTROPHILS % (AUTO) 58 % (42-75); PLATELET COUNT 231 10^3/uL (130-400); RED BLOOD COUNT 3.98 10^6/uL (4.35-5.85); WHITE BLOOD COUNT 5.9 10^3/uL (4.3-11.0)
[2018-01-15] MEDS: inSUlin ASPART (NovoLOG) 1 UNIT/0.01 ML (CHARGE PER UNIT) SC SCH ×3 (06:15→13:58)
[2018-01-15 06:34] LABS: CALCIUM 9.3 MG/DL (8.5-10.1); CREATININE SERUM 1.14 MG/DL (0.60-1.30); POTASSIUM 4.1 MMOL/L (3.6-5.0)
[2018-01-15] MEDS ORDERED: ATOR40TA70 PO (08:24)
[2018-01-15] MEDS ORDERED: TELM40TA3 PO (08:24)
[2018-01-15] MEDS ORDERED: AMLO5TAB2 PO (08:24)
[2018-01-15] MEDS ORDERED: LEVO100T7 PO (08:24)
[2018-01-15] MEDS ORDERED: SULF1TAB35 PO ×2 (08:24→13:03)
[2018-01-15] MEDS ORDERED: OMEP20CA12 PO (08:24)
[2018-01-15] MEDS ORDERED: ESCI10TA55 PO (08:24)
[2018-01-15 08:30] VITALS: BP 184/80
[2018-01-15] MEDS ORDERED: ASPI-816 PO (08:32)
[2018-01-15] MEDS ORDERED: IBUP-30 PO (08:32)
[2018-01-15] MEDS ORDERED: [UNRECOGNIZED DRUG - CODE] PO (08:32)
[2018-01-15] MEDS ORDERED: LORA10TA7 PO (08:32)
[2018-01-15] MEDS ORDERED: MUPI22OI2 TOP (08:37)
[2018-01-15] MEDS ORDERED: LORATADINE (CLARITIN) 10 MG TAB PO PRN (10:45)
[2018-01-15] MEDS ORDERED: IBUPROFEN TABLET 200 MG TAB PO PRN (11:30)
--- OUTSIDE RECORDS SUMMARY | 2018-01-15 12:26 | XMS REPORT ---
Author Author NICO ANTONIO Organization [facility] Address [address] [place] [address] Care Team Providers Care Control Systems Engineer Name Role Phone NICO ANTONIO Unavailable PROBLEMS Type Condition ICD9-CM Code RAR46-IY Code Onset Dates Condition Status SNOMED Code Problem Depression F32.9 Active 97446923 Problem Essential hypertension I10 Active 64210636 Problem Gastroesophageal reflux disease without esophagitis K21.9 Active 099657450 Problem Type 2 diabetes mellitus without complication, without long-term current use of insulin E11.9 Active 680759597 Problem Hypothyroidism E03.9 Active 25947139 Problem Lumbago with sciatica, unspecified side M54.40 Active 89314301 Problem Mixed hyperlipidemia E78.2 Active 999856387 ALLERGIES Substance Reaction Event Type Date Status PredniSONE elevated blood glucose Drug Allergy Aug, Active Mobic shortness of breath Drug Allergy Aug, Active Macrobid Unknown Drug Allergy Aug, Active Lisinopril shortness of breath Drug Allergy Aug, Active ENCOUNTERS Encounter Location Date Diagnosis [facility] [id number] [address] Nov, Medicare annual wellness visit, subsequent Z00.00 ; Encounter for immunization Z23 ; Mixed hyperlipidemia E78.2 ; Depression F32.9 ; Hypothyroidism E03.9 and Type 2 diabetes mellitus without complication, without long-term current use of insulin E11.9 [facility] [id number] [address] Oct, Hypothyroidism E03.9 [facility] [id number] [place] [address] Aug, Hypothyroidism E03.9 [facility] [id number] [address] 25 Apr, 2018 Mixed hyperlipidemia E78.2 ; Essential hypertension I10 and Hypothyroidism E03.9 [place] [address] [address] Aug, Type 2 diabetes mellitus without complication, without long- term current use of insulin E11.9 ; Hypothyroidism E03.9 ; Essential hypertension I10 and Mixed hyperlipidemia E78.2 [facility] [place] [address] [address] Jul, Acute nasopharyngitis J00 [facility] [place] [address] [address] Jul, [facility] [address] [address] Jul, Bronchitis J40 [place] [address] [address] Jul, [facility] [address] [address] Jun, Cough R05 and Pneumonia of left lower lobe due to infectious organism J18.[address] [address] May, Cellulitis of buttock L03.317 and Wheezing R06.[address] [address] Apr, [facility] [address] [address] Oct, Dysuria R30.0 and Rash R21 [facility] [address] [address] Oct, [place] [address] [address] Oct, [facility] [address] [address] Oct, Laceration of left middle finger without foreign body without damage to nail, initial encounter S61.213A and Encounter for immunization Z23 [facility] [id number] [place] [address] September, Dysuria R30.0 and Acute cystitis with hematuria N30.01 [facility] [address] [address] September, Hypothyroidism E03.9 ; Mixed hyperlipidemia E78.2 and Essential hypertension, hypertension with unspecified goal I10 [facility] [address] [address] September, Type 2 diabetes mellitus without complication, without long- term current use of insulin E11.9 ; Essential hypertension, hypertension with unspecified goal I10 ; Mixed hyperlipidemia E78.2 and Hypothyroidism E03.9 [facility] [id number] [place] [address] 87[address] September, Type 2 diabetes mellitus without complication, without long- term current use of insulin E11.9 [facility] [id number] [place] [address] 38651- [address]278 September, [facility] [address] [address] September, [facility] [id number] [place] [address] 28240- 3324 September, [facility] [id number] [place] [address] 14891- 2398 September, [facility] [id number] [place] [address] 84126- 9602 Aug, Common wart B07.8 and Type 2 diabetes mellitus without complication, without long-term current use of insulin E11.9 [facility] [id number] [place] [address]30- 5747 Jul, Type 2 diabetes mellitus without complication, without long- term current use of insulin E11.9 ; Abscess L02.91 and Gastroesophageal reflux disease without esophagitis K21.9 [facility] [id number] [place] [address] 9[address]22- 4018 Jul, [facility] [address] [address] Jun, Hypothyroidism E03.9 [facility] [address] [address] Jun, [place] [address] [address] Jun, Type 2 diabetes mellitus without complication, without long- term current use of insulin E11.9 ; Dysuria R30.0 ; Depression F32.9 ; Mixed hyperlipidemia E78.2 ; Hypothyroidism E03.9 ; Primary insomnia F51.01 ; Gastroesophageal reflux disease without esophagitis K21.9 ; Other chronic pain G89.29 and Lumbago with sciatica, unspecified side M54.40 [place] [address] [address] Jun, [place] [address] [address] Jun, Mixed hyperlipidemia E78.2 [place] [address] [address] May, Dental caries K02.9 [place] [address] [address]77[address] 9[address] 15 May, 2016 Acute right hip pain M25.551 [place] [address] [id number] [place] [address]84- 1268 07 May, 2016 Dental examination Z01.20 [place] [address] [address]- 6[address] 18 Apr, 2016 [place] [address] 6[address]- [address] Apr, [place] [address] [address] Apr, [facility] [address] [address] Apr, [facility] [id number] [place] [address]30[address] 78[address] Apr, Essential hypertension, hypertension with unspecified goal I10 ; Hypothyroidism E03.9 and Type 2 diabetes mellitus without complication, without long-term current use of insulin E11.9 [facility] [id number] [place] [address]75- 43[address] Jan, [facility] [id number] [place] [address] 60956- 3316 Jan, [facility] [id number] [place] [address] 08372- 9127 Jan, Dementia F03.90 and Type 2 diabetes mellitus without complication, without long-term current use of insulin E11.9 [facility] [id number] [place] [address]99- 5059 Jan, [facility] [id number] [place] [address] 20574- 3337 Dec, [facility] [id number] [place] [address] 6[address]45- 2620 Dec, Essential hypertension, hypertension with unspecified goal I10 ; Depression F32.9 and Epidural hematoma S06.4X9A [facility] [address] [place] [address] 19903- 6168 Dec, [facility] [address] [place] [address] 32932- 6582 Dec, [facility] [id number] [place] [address] 41451- 9661 Dec, [facility] [address] [place] [address] 11431- 0366 Dec, [facility] [id number] [place] [address] 00707- 0410 Dec, [facility] [address] [place] [address] 22221- 3413 Nov, [facility] [id number] [place] [address] 85614- 7150 Oct, [facility] [address] [place] [id number] Oct, Dental examination Z01.20 [facility] [address] [address] September, Essential hypertension, hypertension with unspecified goal I10 and Subdural hematoma I62.00 [place] [address] [address] September, [place] [id number] [place] [address] 68887- 9719 Aug, CVA (cerebral vascular accident) I63.9 [place] [id number] [place] [address] 67097- 6062 Aug, Essential hypertension, hypertension with unspecified goal I10 [place] [id number] [place] [address] 53394- 0657 Jul, Essential hypertension, hypertension with unspecified goal I10 ; Hypothyroidism E03.9 ; Depression F32.9 ; Dementia F03.90 and Falling W19.[facility] [id number] [place] [address]89 [address] Jul, Traumatic ecchymosis of left thigh S70.12XA IMMUNIZATIONS No Known Immunizations SOCIAL HISTORY Never Assessed REASON FOR VISIT JIN YOO PLAN OF CARE Activity Details Follow Up 3 Months Reason: VITAL SIGNS Height 59 in 2017-09-22 Weight 123 lbs 2017-09-22 Temperature 97.9 degrees Fahrenheit 2017-09-22 Heart Rate 74 bpm 2017-09-22 Respiratory Rate 22 2017-09-22 BMI 24.84 kg/m2 2017-09-22 Blood pressure systolic 112 mmHg 2017-09-22 Blood pressure diastolic 64 mmHg 2017-09-22 MEDICATIONS Medication Instructions Dosage Frequency Start Date End Date Duration Status Albuterol Sulfate (2.5 MG/3ML) 0.083% Inhalation every 6 hrs 3 ml as needed 6h Jun, 10 days Active Micardis 40 MG Orally Once a day 1 tablet 24h Active Amlodipine Besylate 5 mg Orally Once a day 1 tablet 24h Active GlipiZIDE 5 mg Orally Once a day 1 tablet 24h Aug, 30 day(s) Active Levothyroxine Sodium 112 MCG Orally Once a day 1 tablet 24h 30 days Active Atorvastatin Calcium 40 mg Orally Once a day 1 tablet 24h Active Sp[employer] UltraSoft Lancets - subcutaneously Once a day use to test blood sugar with 24h September, Active [employer]cara Incuch Ultra Test - subcutaneously one time test blood sugars September, Active Omeprazole 20 mg Orally twice a day 1 capsule 12h Active Lexapro 10 mg Orally Once a day 1 tablet 24h 20 Jun, 2016 30 day(s) Active Populy GamesTouch Ultra 2 w/Device subcutaneously Once a day test blood sugar 24h September, 30 days Active RESULTS Name Result Date Reference Range A1C (IN HOUSE) 2017-09-22 A1C IN HOUSE 7.2 4.3 - 5.6 % Previous A1c 6.0 Lot [id number] Exp date 07/2019 PROCEDURES Procedure Date Ordered Result Body Site GLYCATED HEMOGLOBIN TEST September 22, 2017 [facility] VISIT ESTABLISHED PATIENT September 22, 2017 INSTRUCTIONS MEDICATIONS ADMINISTERED No Known Medications MEDICAL (GENERAL) HISTORY Type Description Date Medical History hypertension Medical History depression Medical History Diabetes Surgical History hysterectomy Surgical History Brain Surgery 08/2015 Surgical History left elbow surgery 2004 Hospitalization History Acute Renal Failure 12/2015 Hospitalization History surgery
--- OUTSIDE RECORDS SUMMARY | 2018-01-15 12:26 | XMS REPORT ---
Author Author NICO ANTONIO Organization [facility] Address [address] [place] [address] Care Team Providers Care Collection Officer Name Role Phone NICO ANTONIO Unavailable PROBLEMS Type Condition ICD9-CM Code PDB07-JR Code Onset Dates Condition Status SNOMED Code Problem Depression F32.9 Active 92761673 Problem Essential hypertension I10 Active 31794128 Problem Gastroesophageal reflux disease without esophagitis K21.9 Active 525730891 Problem Type 2 diabetes mellitus without complication, without long-term current use of insulin E11.9 Active 812982131 Problem Hypothyroidism E03.9 Active 93094958 Problem Lumbago with sciatica, unspecified side M54.40 Active 75295033 Problem Mixed hyperlipidemia E78.2 Active 144380062 ALLERGIES No Information ENCOUNTERS Encounter Location Date Diagnosis [place] [id number] [place] [address] Nov, Medicare annual wellness visit, subsequent Z00.00 ; Encounter for immunization Z23 ; Mixed hyperlipidemia E78.2 ; Depression F32.9 ; Hypothyroidism E03.9 and Type 2 diabetes mellitus without complication, without long-term current use of insulin E11.9 [place] [address] [place] [address]2063- 7595 Oct, Hypothyroidism E03.9 [facility] [address] [place] [address] 94193- 3481 Aug, Hypothyroidism E03.9 [place] [id number] [place] [address] 65292- 0784 Aug, Mixed hyperlipidemia E78.2 ; Essential hypertension I10 and Hypothyroidism E03.9 [place] [address] [place] [address] [id number] [place] [address] 05172- 9646 Aug, Type 2 diabetes mellitus without complication, without long- term current use of insulin E11.9 ; Hypothyroidism E03.9 ; Essential hypertension I10 and Mixed hyperlipidemia E78.2 [facility] [address] [address] Jul, Acute nasopharyngitis J00 [facility] [address] [address] Jul, [facility] [address] [address] Jul, Bronchitis J40 [address] [address] Jul, [facility] [address] [address] Jun, Cough R05 and Pneumonia of left lower lobe due to infectious organism J18.[address] [address]- [address]39 May, Cellulitis of buttock L03.317 and Wheezing R06.[address] [address]- 0869 Apr, [facility] [address] [address] Oct, Dysuria R30.0 and Rash R21 [facility] [address] 267[address] Oct, [address] [address]- [address]124 Oct, [facility] [address] [address] Oct, Laceration of left middle finger without foreign body without damage to nail, initial encounter S61.213A and Encounter for immunization Z23 [facility] [address] [address] September, Dysuria R30.0 and Acute cystitis with hematuria N30.01 [place] [id number] [place] [address] 92103- 6487 September, Hypothyroidism E03.9 ; Mixed hyperlipidemia E78.2 and Essential hypertension, hypertension with unspecified goal I10 [place] [address] [id number] [place] [address] 33841- 1367 September, Type 2 diabetes mellitus without complication, without long- term current use of insulin E11.9 ; Essential hypertension, hypertension with unspecified goal I10 ; Mixed hyperlipidemia E78.2 and Hypothyroidism E03.9 [place] [address] 33221- 6693 September, Type 2 diabetes mellitus without complication, without long- term current use of insulin E11.9 [place] [address] [id number] [place] [address] 14916- 5493 September, [place] [address] 16890- 5270 September, [place] [address] [id number] [place] [address] 88942- 9861 September, [place] [address] [id number] [place] [address] 35869- 5937 September, [place] [address] [id number] [place] [address] 71614- 9084 Aug, Common wart B07.8 and Type 2 diabetes mellitus without complication, without long-term current use of insulin E11.9 [place] [id number] [place] [address] 14828- 3649 Jul, Type 2 diabetes mellitus without complication, without long- term current use of insulin E11.9 ; Abscess L02.91 and Gastroesophageal reflux disease without esophagitis K21.9 [place] [address] [id number] [place] [address] 69147- 4321 Jul, [place] [address] 59896- 8936 Jun, Hypothyroidism E03.9 [place] [address] [id number] [place] [address] 80591- 0409 Jun, [place] [address] 71582- 3654 Jun, Type 2 diabetes mellitus without complication, without long- term current use of insulin E11.9 ; Dysuria R30.0 ; Depression F32.9 ; Mixed hyperlipidemia E78.2 ; Hypothyroidism E03.9 ; Primary insomnia F51.01 ; Gastroesophageal reflux disease without esophagitis K21.9 ; Other chronic pain G89.29 and Lumbago with sciatica, unspecified side M54.40 [place] [address] 87417- 4143 Jun, [place] [address] 56074- 7656 Jun, Mixed hyperlipidemia E78.2 [place] [address] 70903- 2178 May, Dental caries K02.9 [place] [address] 79160- 6362 May, Acute right hip pain M25.551 [place] [address] [id number] [place] [address] 22839- 0723 07 May, 2016 Dental examination Z01.20 [place] [id number] [place] [address] 38224- 8703 Apr, [place] [address] [id number] [place] [address] 22451- 3941 Apr, [place] [address] 68986- 0520 Apr, [place] [address] 67795- 9893 Apr, [place] [address] 16254- 4636 Apr, Essential hypertension, hypertension with unspecified goal I10 ; Hypothyroidism E03.9 and Type 2 diabetes mellitus without complication, without long-term current use of insulin E11.9 [facility] [address] [place] [address] 34781- 2337 Jan, [facility] [id number] [place] [address] 10742- 2744 Jan, [facility] [id number] [place] [address] 59726- 6252 Jan, Dementia F03.90 and Type 2 diabetes mellitus without complication, without long-term current use of insulin E11.9 [facility] [id number] [place] [address] 13571- 4643 Jan, [facility] [id number] [place] [address] 40257- 5334 Dec, [facility] [id number] [place] [address] 54864- 0867 Dec, Essential hypertension, hypertension with unspecified goal I10 ; Depression F32.9 and Epidural hematoma S06.4X9A [facility] [address] [place] [address] 24911- 9117 Dec, [facility] [address] [place] [address] 77338- 3373 Dec, [facility] [id number] [place] [address] 46871- 1721 Dec, [facility] [address] [place] [address] 01189- 6867 Dec, [facility] [id number] [place] [address] 33066- 2454 Dec, [facility] [address] [place] [address] 95591- 4725 Nov, [facility] [id number] [place] [address] 208496- 0360 Oct, [facility] [id number] [id number] Oct, Dental examination Z01.20 [facility] [address] [address] September, Essential hypertension, hypertension with unspecified goal I10 and Subdural hematoma I62.00 [place] [id number] [place] [address] 38647- 4737 September, [place] [id number] [place] [address] 71721- 9934 Aug, CVA (cerebral vascular accident) I63.9 [place] [address] [place] [id number] [place] [address] 77918- 2162 Aug, Essential hypertension, hypertension with unspecified goal I10 [place] [address] [place] [address] 69729- 3634 Jul, Essential hypertension, hypertension with unspecified goal I10 ; Hypothyroidism E03.9 ; Depression F32.9 ; Dementia F03.90 and Falling W19.XXXA [facility] [address] [address] Jul, Traumatic ecchymosis of left thigh S70.12XA IMMUNIZATIONS No Known Immunizations SOCIAL HISTORY Never Assessed REASON FOR VISIT change in Levothyroxine PLAN OF CARE VITAL SIGNS MEDICATIONS Medication Instructions Dosage Frequency Start Date End Date Duration Status Levothyroxine Sodium 100 MCG Orally Once a day 1 tablet 24h 30 days Active RESULTS No Results PROCEDURES No Known procedures INSTRUCTIONS MEDICATIONS ADMINISTERED No Known Medications MEDICAL (GENERAL) HISTORY Type Description Date Medical History hypertension Medical History depression Medical History Diabetes Surgical History hysterectomy Surgical History Brain Surgery 08/2015 Surgical History left elbow surgery 2004 Hospitalization History Acute Renal Failure 12/2015 Hospitalization History surgery
--- OUTSIDE RECORDS SUMMARY | 2018-01-15 12:27 | XMS REPORT ---
Author Author NICO ANTONIO Organization [facility] Address [address] [place] [address] Care Team Providers Care Animal Herder Name Role Phone NICO ANTONIO Unavailable PROBLEMS Type Condition ICD9-CM Code CTP27-IJ Code Onset Dates Condition Status SNOMED Code Problem Depression F32.9 Active 76778405 Problem Essential hypertension I10 Active 99776998 Problem Gastroesophageal reflux disease without esophagitis K21.9 Active 285867281 Problem Type 2 diabetes mellitus without complication, without long-term current use of insulin E11.9 Active 477347846 Problem Hypothyroidism E03.9 Active 79171905 Problem Lumbago with sciatica, unspecified side M54.40 Active 73588925 Problem Mixed hyperlipidemia E78.2 Active 556826218 ALLERGIES No Information ENCOUNTERS Encounter Location Date Diagnosis [place] [address] [place] [id number] [place] [address]40- 2004 Nov, Medicare annual wellness visit, subsequent Z00.00 ; Encounter for immunization Z23 ; Mixed hyperlipidemia E78.2 ; Depression F32.9 ; Hypothyroidism E03.9 and Type 2 diabetes mellitus without complication, without long-term current use of insulin E11.9 [place] [address] [place] [address] 02914- 3587 Oct, Hypothyroidism E03.9 [facility] [address] [place] [address] 50361- 2214 Aug, Hypothyroidism E03.9 [place] [id number] [place] [address] 81558- 4724 Aug, Mixed hyperlipidemia E78.2 ; Essential hypertension I10 and Hypothyroidism E03.9 [place] [address] [place] [id number] [place] [address] 09697- 2993 Aug, Type 2 diabetes mellitus without complication, without long- term current use of insulin E11.9 ; Hypothyroidism E03.9 ; Essential hypertension I10 and Mixed hyperlipidemia E78.2 [facility] [address] [address] Jul, Acute nasopharyngitis J00 [facility] [address] [address] Jul, [facility] [address] [address] Jul, Bronchitis J40 [address] 0[address]79- 6068 Jul, [facility] [address] [address] Jun, Cough R05 and Pneumonia of left lower lobe due to infectious organism J18.[address] 538[address]- 2744 May, Cellulitis of buttock L03.317 and Wheezing R06.[address] 53789- 7422 Apr, [facility] [address] [address] Oct, Dysuria R30.0 and Rash R21 [facility] [address] [address] Oct, [address] [address]68- 1162 Oct, [facility] [address] [address]68 Oct, Laceration of left middle finger without foreign body without damage to nail, initial encounter S61.213A and Encounter for immunization Z23 [facility] [address] [address] September, Dysuria R30.0 and Acute cystitis with hematuria N30.01 [place] [id number] [place] [address] 56949- 1688 September, Hypothyroidism E03.9 ; Mixed hyperlipidemia E78.2 and Essential hypertension, hypertension with unspecified goal I10 [place] [address] [id number] [place] [address] 93342- 1968 September, Type 2 diabetes mellitus without complication, without long- term current use of insulin E11.9 ; Essential hypertension, hypertension with unspecified goal I10 ; Mixed hyperlipidemia E78.2 and Hypothyroidism E03.9 [place] [address] 15969- 7608 September, Type 2 diabetes mellitus without complication, without long- term current use of insulin E11.9 [place] [address] [address] [id number] [place] [address] 22475- 2454 September, [place] [address] 6[address]14- 6414 September, [place] [address] [place] [id number] [place] [address] 88313- 8699 September, [place] [address] [address] [id number] [place] [address] 62924- 2220 September, [place] [address] [address] [id number] [place] [address] 05958- 2293 Aug, Common wart B07.8 and Type 2 diabetes mellitus without complication, without long-term current use of insulin E11.9 [place] [address] [address] [id number] [place] [address] 01615- 8273 Jul, Type 2 diabetes mellitus without complication, without long- term current use of insulin E11.9 ; Abscess L02.91 and Gastroesophageal reflux disease without esophagitis K21.9 [place] [address] [address] [id number] [place] [address] 24168- 2173 Jul, [place] [address] 50431- 6973 Jun, Hypothyroidism E03.9 [place] [address] [address] [id number] [place] [address] 81493- 8116 Jun, [place] [address] 82311- 3909 Jun, Type 2 diabetes mellitus without complication, without long- term current use of insulin E11.9 ; Dysuria R30.0 ; Depression F32.9 ; Mixed hyperlipidemia E78.2 ; Hypothyroidism E03.9 ; Primary insomnia F51.01 ; Gastroesophageal reflux disease without esophagitis K21.9 ; Other chronic pain G89.29 and Lumbago with sciatica, unspecified side M54.40 [place] [address] 23482- 4571 Jun, [place] [address] 95035- 9623 Jun, Mixed hyperlipidemia E78.2 [place] [address] 60245- 7089 May, Dental caries K02.9 [place] [address] 85950- 4742 May, Acute right hip pain M25.551 [place] [address] [place] [id number] [place] [address] 47445- 5288 07 May, 2016 Dental examination Z01.20 [place] [address] [place] [id number] [place] [address] 20993- 2872 Apr, [place] [address] [place] [address] [id number] [place] [address] 36208- 5807 Apr, [place] [address] 86116- 1911 Apr, [place] [address] 23831- 8591 Apr, [place] [address] 82221- 3964 Apr, Essential hypertension, hypertension with unspecified goal I10 ; Hypothyroidism E03.9 and Type 2 diabetes mellitus without complication, without long-term current use of insulin E11.9 [facility] [address] [place] [address] 03851- 7787 Jan, [facility] [address] [place] [address] [id number] [place] [address] 17701- 6921 Jan, [facility] [id number] [place] [address] 19191- 7329 Jan, Dementia F03.90 and Type 2 diabetes mellitus without complication, without long-term current use of insulin E11.9 [facility] [id number] [place] [address] 69560- 9457 Jan, [facility] [address] [id number] [place] [address] 87526- 0493 Dec, [facility] [address] [place] [address] [id number] [place] [address] 33142- 5419 Dec, Essential hypertension, hypertension with unspecified goal I10 ; Depression F32.9 and Epidural hematoma S06.4X9A [facility] [address] [place] [address] 74470- 4382 Dec, [facility] [address] [place] [address] 67020- 2078 Dec, [facility] [address] [place] [address] [id number] [place] [address] 81419- 9579 Dec, [facility] [address] [place] [address] 32648- 8344 Dec, [facility] [address] [place] [id number] [place] [address] 17997- 2676 Dec, [facility] [id number] [place] [address] 50366- 4401 Nov, [facility] [address] [id number] [place] [address] 56227- 9440 Oct, [facility] [id number] [id number] Oct, Dental examination Z01.20 [facility] [address] [address] 17 Sep, 2015 Essential hypertension, hypertension with unspecified goal I10 and Subdural hematoma I62.00 [place] [address] [address] [id number] [place] [address] 36074- 8638 September, [place] [address] [place] [address] [id number] [place] [address] 58088- 3332 11 Aug, 2015 CVA (cerebral vascular accident) I63.9 [place] [address] [address] [id number] [place] [address] 31175- 2236 Aug, Essential hypertension, hypertension with unspecified goal I10 [place] [address] [place] [address] 87853- 3030 Jul, Essential hypertension, hypertension with unspecified goal I10 ; Hypothyroidism E03.9 ; Depression F32.9 ; Dementia F03.90 and Falling W19.XXXA [facility] [address] [address] Jul, Traumatic ecchymosis of left thigh S70.12XA IMMUNIZATIONS No Known Immunizations SOCIAL HISTORY Never Assessed REASON FOR VISIT Lab (walk-in) PLAN OF CARE VITAL SIGNS MEDICATIONS Unknown Medications RESULTS No Results PROCEDURES Procedure Date Ordered Result Body Site LAB NOT BILLED BY [facility] September 23, 2017 INSTRUCTIONS MEDICATIONS ADMINISTERED No Known Medications MEDICAL (GENERAL) HISTORY Type Description Date Medical History hypertension Medical History depression Medical History Diabetes Surgical History hysterectomy Surgical History Brain Surgery 08/2015 Surgical History left elbow surgery 2004 Hospitalization History Acute Renal Failure 12/2015 Hospitalization History surgery
--- OUTSIDE RECORDS SUMMARY | 2018-01-15 12:27 | XMS REPORT ---
Author Author CHRISTIE WYATT [facility] Address [address] [place] [address] Care Team Providers Care Territory Representative Name Role Phone CHRISTIE WYATT Unavailable PROBLEMS Type Condition ICD9-CM Code NOA07-FO Code Onset Dates Condition Status SNOMED Code Problem Depression F32.9 Active 94156381 Problem Essential hypertension I10 Active 35690400 Problem Gastroesophageal reflux disease without esophagitis K21.9 Active 813429951 Problem Type 2 diabetes mellitus without complication, without long-term current use of insulin E11.9 Active 206052258 Problem Hypothyroidism E03.9 Active 62135281 Problem Lumbago with sciatica, unspecified side M54.40 Active 52992054 Problem Mixed hyperlipidemia E78.2 Active 012577233 ALLERGIES No Information ENCOUNTERS Encounter Location Date Diagnosis [facility] [address] [address]65 Oct, Hypothyroidism E03.9 [facility] [address] 12219- 6171 Aug, Hypothyroidism E03.9 [facility] [address] 07204- 1063 Aug, Mixed hyperlipidemia E78.2 ; Essential hypertension I10 and Hypothyroidism E03.9 [facility] [address] 54979- 1043 Aug, Type 2 diabetes mellitus without complication, without long- term current use of insulin E11.9 ; Hypothyroidism E03.9 ; Essential hypertension I10 and Mixed hyperlipidemia E78.2 [facility] [id number] [place] [address]82 -1715 Jul, Acute nasopharyngitis J00 [facility] [address] 80287 -4602 14 Jul, 2017 [facility] [id number] [place] [address] 83255 -8141 14 Jul, 2017 Bronchitis J40 [place] [address] 78858- 7600 05 Jul, 2017 [facility] [address] [address] Jun, Cough R05 and Pneumonia of left lower lobe due to infectious organism J18.1 [place] [address] 16512- 1873 14 May, 2017 Cellulitis of buttock L03.317 and Wheezing R06.2 [place] [address] 57172- 3368 Apr, [facility] [place] [address] [address]59 Oct, Dysuria R30.0 and Rash R21 [facility] [place] [address] 04382 -5679 Oct, [place] [address] 37824- 5626 Oct, [facility] [address] [address]59 02 Oct, 2016 Laceration of left middle finger without foreign body without damage to nail, initial encounter S61.213A and Encounter for immunization Z23 [facility] [address] [address] September, Dysuria R30.0 and Acute cystitis with hematuria N30.01 [place] [address] 83593- 1917 September, Hypothyroidism E03.9 ; Mixed hyperlipidemia E78.2 and Essential hypertension, hypertension with unspecified goal I10 [place] [address] 69733- 1195 September, Type 2 diabetes mellitus without complication, without long- term current use of insulin E11.9 ; Essential hypertension, hypertension with unspecified goal I10 ; Mixed hyperlipidemia E78.2 and Hypothyroidism E03.9 [place] [id number] [place] [address] 35589- 3560 September, Type 2 diabetes mellitus without complication, without long- term current use of insulin E11.9 [place] [id number] [place] [address] 84270- 7896 September, [place] [address] [id number] [place] [address] 17384- 1580 September, [place] [address] [place] [address] [id number] [place] [address] 25544- 4315 September, [place] [address] 96023- 8596 September, [place] [address] [id number] [place] [address] 58067- 1535 Aug, Common wart B07.8 and Type 2 diabetes mellitus without complication, without long-term current use of insulin E11.9 [place] [address] [place] [id number] [place] [address] 78491- 1069 Jul, Type 2 diabetes mellitus without complication, without long- term current use of insulin E11.9 ; Abscess L02.91 and Gastroesophageal reflux disease without esophagitis K21.9 [place] [address] [place] [address] 74090- 7773 Jul, [place] [address] [place] [address] [id number] [place] [address] 66375- 4409 Jun, Hypothyroidism E03.9 [place] [id number] [place] [address] 67542- 5319 Jun, [place] [address] [address] [id number] [place] [address] 76576- 3873 Jun, Type 2 diabetes mellitus without complication, without long- term current use of insulin E11.9 ; Dysuria R30.0 ; Depression F32.9 ; Mixed hyperlipidemia E78.2 ; Hypothyroidism E03.9 ; Primary insomnia F51.01 ; Gastroesophageal reflux disease without esophagitis K21.9 ; Other chronic pain G89.29 and Lumbago with sciatica, unspecified side M54.40 [place] [address] 66271- 0061 Jun, [place] [address] 49208- 7237 Jun, Mixed hyperlipidemia E78.2 [place] [address] 65289- 6645 May, Dental caries K02.9 [place] [address] 74968- 4066 May, Acute right hip pain M25.551 [place] [address] 26889- 3177 May, Dental examination Z01.20 [place] [address] 40029- 5389 Apr, [place] [address] 21057- 2841 Apr, [place] [address] [id number] [place] [address] 65055- 9615 Apr, [place] [address] 67447- 4762 Apr, [place] [address] [id number] [place] [address] 51136- 8240 Apr, Essential hypertension, hypertension with unspecified goal I10 ; Hypothyroidism E03.9 and Type 2 diabetes mellitus without complication, without long-term current use of insulin E11.9 [place] [id number] [place] [address] 27213- 4142 Jan, [place] [id number] [place] [address] 18974- 1838 Jan, [facility] [id number] [place] [address] 47794- 8763 Jan, Dementia F03.90 and Type 2 diabetes mellitus without complication, without long-term current use of insulin E11.9 [facility] [id number] [place] [address] 98401- 9869 Jan, [facility] [id number] [place] [address] 72394- 9671 Dec, [facility] [address] [id number] [place] [address] 27120- 0079 Dec, Essential hypertension, hypertension with unspecified goal I10 ; Depression F32.9 and Epidural hematoma S06.4X9A [facility] [id number] [place] [address] 96036- 0401 Dec, [facility] [id number] [place] [address] 75167- 2591 Dec, [facility] [id number] [place] [address] 67049- 1727 Dec, [facility] [id number] [place] [address] 82156- 9926 Dec, [facility] [id number] [place] [address] 43579- 0015 Dec, [facility] [id number] [place] [address] 11801- 9599 Nov, [facility] [address] [place] [address] 52212- 1936 Oct, [facility] [address] [place] [address] [id number] Oct, Dental examination Z01.20 [facility] [id number] [place] [address] 58372- 9907 September, Essential hypertension, hypertension with unspecified goal I10 and Subdural hematoma I62.00 [facility] [address] [id number] [address]- 0680 September, [facility] [address], [place] [address]- 6884 11 Aug, 2015 CVA (cerebral vascular accident) I63.9 [place] [address] [place] [address] 52127- 6242 11 Aug, 2015 Essential hypertension, hypertension with unspecified goal I10 [facility] [address] [address]- 9308 29 Jul, 2015 Essential hypertension, hypertension with unspecified goal I10 ; Hypothyroidism E03.9 ; Depression F32.9 ; Dementia F03.90 and Falling W19.XXXA [facility] [address], [place] [address]79 17 Jul, 2015 Traumatic ecchymosis of left thigh S70.12XA IMMUNIZATIONS No Known Immunizations SOCIAL HISTORY Never Assessed REASON FOR VISIT Requests return call PLAN OF CARE VITAL SIGNS MEDICATIONS Unknown Medications RESULTS No Results PROCEDURES No Known procedures INSTRUCTIONS MEDICATIONS ADMINISTERED No Known Medications MEDICAL (GENERAL) HISTORY Type Description Date Medical History hypertension Medical History depression Medical History Diabetes Surgical History hysterectomy Surgical History Brain Surgery 08/2015 Surgical History left elbow surgery 2004 Hospitalization History Acute Renal Failure 12/2015 Hospitalization History surgery
--- OUTSIDE RECORDS SUMMARY | 2018-01-15 12:27 | XMS REPORT ---
Author Author NICO ANTONIO [facility] Address [address] [place] [address] Care Team Providers Care Logistics Loss Prevention Manager Name Role Phone NICO ANTOINO Unavailable PROBLEMS Type Condition ICD9-CM Code [id number] Code Onset Dates Condition Status SNOMED Code Problem Depression F32.9 Active 36480851 Problem Essential hypertension I10 Active 85380006 Problem Gastroesophageal reflux disease without esophagitis K21.9 Active 513631098 Problem Type 2 diabetes mellitus without complication, without long-term current use of insulin E11.9 Active 910872249 Problem Hypothyroidism E03.9 Active 37750187 Problem Lumbago with sciatica, unspecified side M54.40 Active 40969427 Problem Mixed hyperlipidemia E78.2 Active 956596746 ALLERGIES Substance Reaction Event Type Date Status Mobic shortness of breath Drug Allergy May, Active Macrobid Unknown Drug Allergy May, Active Lisinopril shortness of breath Drug Allergy May, Active ENCOUNTERS Encounter Location Date Diagnosis [facility] [id number] [place] [address]18- 3086 Aug, Hypothyroidism E03.9 [facility] [address] [place] [id number] [place] [address] 49721- 3797 Aug, Mixed hyperlipidemia E78.2 ; Essential hypertension I10 and Hypothyroidism E03.9 [facility] [id number] [place] [address] 05865- 6562 Aug, Type 2 diabetes mellitus without complication, without long- term current use of insulin E11.9 ; Hypothyroidism E03.9 ; Essential hypertension I10 and Mixed hyperlipidemia E78.2 [facility] [id number] [place] [address] 18741 -5194 Jul, Acute nasopharyngitis J00 [facility] [id number] [place] [address] 56804 -6809 14 Jul, 2017 [facility] [place] [address] 58[address]4362 14 Jul, 2017 Bronchitis J40 [place] [address] 00564- 9095 05 Jul, 2017 [facility] [place] [address] 61922 -4571 30 Jun, 2017 Cough R05 and Pneumonia of left lower lobe due to infectious organism J18.[address] 6[address]- 5211 14 May, 2017 Cellulitis of buttock L03.317 and Wheezing R06.[address] 72968- 6975 Apr, [facility] [place] [address] 50841 [address]3682 Oct, Dysuria R30.0 and Rash R21 [facility] [address] 8[address]9072 Oct, [place] [address] 94117- 2388 Oct, [facility] [address] 67425 -9528 02 Oct, 2016 Laceration of left middle finger without foreign body without damage to nail, initial encounter S61.213A and Encounter for immunization Z23 [facility] [address] [address] September, Dysuria R30.0 and Acute cystitis with hematuria N30.01 [place] [address] 93876- [address] September, Hypothyroidism E03.9 ; Mixed hyperlipidemia E78.2 and Essential hypertension, hypertension with unspecified goal I10 [place] [address] [place] [address] 16586- 8849 September, Type 2 diabetes mellitus without complication, without long- term current use of insulin E11.9 ; Essential hypertension, hypertension with unspecified goal I10 ; Mixed hyperlipidemia E78.2 and Hypothyroidism E03.9 [place] [address] [place] [id number] [place] [address] 64653- 6348 September, Type 2 diabetes mellitus without complication, without long- term current use of insulin E11.9 [place] [address] [place] [id number] [place] [address] 95479- 8197 September, [place] [address] [place] [id number] [place] [address] 18160- 9659 September, [place] [address] [place] [id number] [place] [address] 98190- 0904 September, [place] [address] [place] [id number] [place] [address] 57750- 4516 September, [place] [address] [place] [id number] [place] [address] 85970- 4682 Aug, Common wart B07.8 and Type 2 diabetes mellitus without complication, without long-term current use of insulin E11.9 [place] [address] [place] [id number] [place] [address] 38350- 9095 Jul, Type 2 diabetes mellitus without complication, without long- term current use of insulin E11.9 ; Abscess L02.91 and Gastroesophageal reflux disease without esophagitis K21.9 [place] [address] [address] 7[address] Jul, [place] [address] [place] [id number] [place] [address] 69939- 3070 Jun, Hypothyroidism E03.9 [place] [address] [place] [id number] [place] [address] 63785- 9293 Jun, [place] [address] [place] [id number] [place] [address] 83210- 8266 Jun, Type 2 diabetes mellitus without complication, without long- term current use of insulin E11.9 ; Dysuria R30.0 ; Depression F32.9 ; Mixed hyperlipidemia E78.2 ; Hypothyroidism E03.9 ; Primary insomnia F51.01 ; Gastroesophageal reflux disease without esophagitis K21.9 ; Other chronic pain G89.29 and Lumbago with sciatica, unspecified side M54.40 [place] [address] 72756- 5281 Jun, [place] [address] 77603- 5113 Jun, Mixed hyperlipidemia E78.2 [place] [address] 24694- 1693 May, Dental caries K02.9 [place] [address] 06418- 5104 May, Acute right hip pain M25.551 [place] [address] 18232- 2456 May, Dental examination Z01.20 [place] [address] 41288- 8900 Apr, [place] [address] 45857- 9431 Apr, [place] [address] 81262- 6298 Apr, [place] [address] 88899- 5622 Apr, [place] [address] 99484- 0167 Apr, Essential hypertension, hypertension with unspecified goal I10 ; Hypothyroidism E03.9 and Type 2 diabetes mellitus without complication, without long-term current use of insulin E11.9 [place] [address] 03017- 6465 Jan, [facility] [address] [id number] [place] [address] 97682- 0061 Jan, [facility] [id number] [place] [address] 39203- 7334 Jan, Dementia F03.90 and Type 2 diabetes mellitus without complication, without long-term current use of insulin E11.9 [facility] [address] [place] [address] [id number] [place] [address] 77494- 3622 Jan, [facility] [address] [address] [id number] [place] [address] 96042- 8877 Dec, [facility] [address] [place] [address] [id number] [place] [address] 84906- 8491 Dec, Essential hypertension, hypertension with unspecified goal I10 ; Depression F32.9 and Epidural hematoma S06.4X9A [facility] [address] [place] [address] [id number] [place] [address] 15297- 6626 Dec, [facility] [address] [address] [id number] [place] [address] 30576- 6202 Dec, [facility] [address] [address] [id number] [place] [address] 91051- 2094 Dec, [facility] [address] [address] [id number] [place] [address] 21849- 1989 Dec, [facility] [address] [address] [id number] [place] [address] 52714- 9181 Dec, [facility] [address] [address] [id number] [place] [address] 59133- 2377 Nov, [facility] [address] [address] [id number] [place] [address] 43990- 7426 Oct, [facility] [address] [place] [address] [id number] Oct, Dental examination Z01.20 [facility] [address] [place] [id number] [place] [address] 80277- 2935 September, Essential hypertension, hypertension with unspecified goal I10 and Subdural hematoma I62.00 [facility] [address] [address] 459[address] September, [facility] [address] [address] 7940 Aug, CVA (cerebral vascular accident) I63.9 [place] [address] [place] [id number] [place] [address] 25612- 7494 11 Aug, 2015 Essential hypertension, hypertension with unspecified goal I10 [facility] [address] [place] [address] 36073- 0793 Jul, Essential hypertension, hypertension with unspecified goal I10 ; Hypothyroidism E03.9 ; Depression F32.9 ; Dementia F03.90 and Falling W19.XXXA [facility] [address] [address] Jul, Traumatic ecchymosis of left thigh S70.12XA IMMUNIZATIONS No Known Immunizations SOCIAL HISTORY Never Assessed REASON FOR VISIT ER f/u from a week ago from a spider bite on the left side of her behined. says its an ingrown hair-K[facility] PLAN OF C[facility] Activity Details Follow Up 6 Months Reason: VITAL SIGNS Height 59 in 2017-05-14 Weight 112.7 lbs 2017-05-14 Temperature 98.3 degrees Fahrenheit 2017-05-14 Heart Rate 76 bpm 2017-05-14 Respiratory Rate 20 2017-05-14 BMI 22.76 kg/m2 2017-05-14 Blood pressure systolic 124 mmHg 2017-05-14 Blood pressure diastolic 58 mmHg 2017-05-14 MEDICATIONS Medication Instructions Dosage Frequency Start Date End Date Duration Status OneTouch Ultra Test - subcutaneously one time test blood sugars September, Active Melatonin 300 MCG Orally Once a day 1 tablet at bedtime as needed with food 24h Active Atorvastatin Calcium 40 mg Orally Once a day 1 tablet 24h Active Omeprazole 20 mg Orally twice a day 1 capsule 12h Active Levothyroxine Sodium 112 MCG Orally Once a day 1 tablet 24h 30 days Active Triamcinolone Acetonide 0.1 % Externally Twice a day 1 application to affected area 12h 28 Oct, 2016 Active Micardis 40 MG Orally Once a day 1 tablet 24h Active Lexapro 10 mg Orally Once a day 1 tablet 24h Jun, 30 day(s) Active OneTouch Ultra 2 w/Device subcutaneously Once a day test blood sugar 24h September, 30 days Active ProAir HFA 108 (90 Base) MCG/ACT Inhalation every 6 hrs 2 puffs as needed 6h May, Active Amlodipine Besylate 5 mg Orally Once a day 1 tablet 24h Active Ultram 50 mg Orally 2 times a day 1 tablet as needed 12h Jun, Active OneTouch UltraSoft Lancets - subcutaneously Once a day use to test blood sugar with 24h September, Active RESULTS No Results PROCEDURES Procedure Date Ordered Result Body Site [facility] VISIT ESTABLISHED PATIENT May 14, 2017 INSTRUCTIONS MEDICATIONS ADMINISTERED No Known Medications MEDICAL (GENERAL) HISTORY Type Description Date Medical History hypertension Medical History depression Medical History Diabetes Surgical History hysterectomy Surgical History Brain Surgery 08/2015 Surgical History left elbow surgery 2004 Hospitalization History Acute Renal Failure 12/2015 Hospitalization History surgery
--- OUTSIDE RECORDS SUMMARY | 2018-01-15 12:27 | XMS REPORT ---
Author Author MYAH MONZON [facility] Address [address] [place] [address] Care Team Providers Care Leather Leveler Name Role Phone MYAH MONZON Unavailable PROBLEMS Type Condition ICD9-CM Code [id number] Code Onset Dates Condition Status SNOMED Code Problem Depression F32.9 Active 67062104 Problem Essential hypertension I10 Active 10808978 Problem Gastroesophageal reflux disease without esophagitis K21.9 Active 433572051 Problem Type 2 diabetes mellitus without complication, without long-term current use of insulin E11.9 Active 724706656 Problem Hypothyroidism E03.9 Active 51921732 Problem Lumbago with sciatica, unspecified side M54.40 Active 57279396 Problem Mixed hyperlipidemia E78.2 Active 881784571 ALLERGIES Substance Reaction Event Type Date Status PredniSONE elevated blood glucose Drug Allergy Jul, Active Mobic shortness of breath Drug Allergy Jul, Active Macrobid Unknown Drug Allergy Jul, Active Lisinopril shortness of breath Drug Allergy Jul, Active ENCOUNTERS Encounter Location Date Diagnosis [place] [address] [place] [id number] [place] [address] 49578- 5605 Oct, Hypothyroidism E03.9 [place] [address] [place] [id number] [place] [address] 96031- 2992 Aug, Hypothyroidism E03.9 [facility] [address] 23260- 0535 Aug, Mixed hyperlipidemia E78.2 ; Essential hypertension I10 and Hypothyroidism E03.9 [facility] [address] 99245- 4732 Aug, Type 2 diabetes mellitus without complication, without long- term current use of insulin E11.9 ; Hypothyroidism E03.9 ; Essential hypertension I10 and Mixed hyperlipidemia E78.2 [facility] [address] [place] [id number] [place] [address] 27641 -6955 Jul, Acute nasopharyngitis J00 [facility] [address] 55976 -2969 14 Jul, 2017 [facility] [address] 42103 -6629 Jul, Bronchitis J40 [place] [address] 02149- 2084 Jul, [facility] [address] 41752 -1472 Jun, Cough R05 and Pneumonia of left lower lobe due to infectious organism J18.[address] 45007- 0272 May, Cellulitis of buttock L03.317 and Wheezing R06.2 [place] [address] 39530- 3910 Apr, [facility] [address] [place] [address] 37107 -6074 Oct, Dysuria R30.0 and Rash R21 [facility] [place] [id number] [place] [address] 26467 -3014 Oct, [place] [address] [place] [id number] [place] [address] 70252- 4499 Oct, [facility] [address] [place] [id number] [place] [address] 67251 -4953 Oct, Laceration of left middle finger without foreign body without damage to nail, initial encounter S61.213A and Encounter for immunization Z23 [facility] [address] [place] [id number] [place] [address] 89415 -4602 September, Dysuria R30.0 and Acute cystitis with hematuria N30.01 [place] [address] [place] [address]- 1267 September, Hypothyroidism E03.9 ; Mixed hyperlipidemia E78.2 and Essential hypertension, hypertension with unspecified goal I10 [place] [address] [place] [id number] [place] [address] 34692- 1524 September, Type 2 diabetes mellitus without complication, without long- term current use of insulin E11.9 ; Essential hypertension, hypertension with unspecified goal I10 ; Mixed hyperlipidemia E78.2 and Hypothyroidism E03.9 [place] [address] [place] [id number] [place] [address] 77702- 4628 September, Type 2 diabetes mellitus without complication, without long- term current use of insulin E11.9 [place] [address] [place] [id number] [place] [address] 09987- 9691 September, [place] [address] 93176- 2718 September, [place] [address] [place] [id number] [place] [address] 59232- 1748 September, [place] [address] [place] [id number] [place] [address] 63375- 8567 September, [place] [address] [place] [id number] [place] [address] 43628- 7893 Aug, Common wart B07.8 and Type 2 diabetes mellitus without complication, without long-term current use of insulin E11.9 [place] [address] [place] [id number] [place] [address] 70217- 1797 Jul, Type 2 diabetes mellitus without complication, without long- term current use of insulin E11.9 ; Abscess L02.91 and Gastroesophageal reflux disease without esophagitis K21.9 [place] [address] [place] [id number] [place] [address] 72495- 3618 Jul, [place] [address] [place] [id number] [place] [address] 46531- 1296 Jun, Hypothyroidism E03.9 [place] [address] [place] [address] [place] [address]- 7952 Jun, [place] [address] [place] [id number] [place] [address] 82208- 2234 Jun, Type 2 diabetes mellitus without complication, without long- term current use of insulin E11.9 ; Dysuria R30.0 ; Depression F32.9 ; Mixed hyperlipidemia E78.2 ; Hypothyroidism E03.9 ; Primary insomnia F51.01 ; Gastroesophageal reflux disease without esophagitis K21.9 ; Other chronic pain G89.29 and Lumbago with sciatica, unspecified side M54.40 [place] [address] 91487- 0700 Jun, [place] [address] 03761- 2704 Jun, Mixed hyperlipidemia E78.2 [place] [address] 90092- 4915 May, Dental caries K02.9 [place] [address] 64122- 2047 15 May, 2016 Acute right hip pain M25.551 [place] [address] 36367- 8319 07 May, 2016 Dental examination Z01.20 [place] [address] [place] [id number] [place] [address] 54082- 5760 Apr, [place] [address] [place] [id number] [place] [address] 49898- 6749 Apr, [place] [address] [place] [id number] [place] [address] 06818- 6734 Apr, [place] [address] 69320- 8410 Apr, [place] [address] [place] [id number] [place] [address] 44664- 2458 Apr, Essential hypertension, hypertension with unspecified goal I10 ; Hypothyroidism E03.9 and Type 2 diabetes mellitus without complication, without long-term current use of insulin E11.9 [facility] [address] [facility] [id number] [address] 2546 Jan, [facility] [address] [facility] [id number] [place] [address] 01976 2546 Jan, [facility] [address] [place] [id number] [place] [address] 71233 2547 Jan, Dementia F03.90 and Type 2 diabetes mellitus without complication, without long-term current use of insulin E11.9 [facility] [address] [facility] [id number] [place] [address] 34464 2546 Jan, [facility] [address] [place] [id number] [place] [address] 32545- 8194 Dec, [facility] [address] [place] [id number] [place] [address] 92605- 0437 Dec, Essential hypertension, hypertension with unspecified goal I10 ; Depression F32.9 and Epidural hematoma S06.4X9A [facility] [address] [address]- 7840 Dec, [facility] [address] [place] [id number] [place] [address] 15264- 9832 Dec, [facility] [address] [address]- 2130 Dec, [facility] [address] [place] [address] 89793 2544 Dec, [facility] [address] [address] 2545 Dec, [facility] [id number] [place] [address] 24559 2546 Nov, [facility] [address], [place] [address]- 2591 Oct, [facility] [address] [id number] Oct, Dental examination Z01.20 [place] [address] [place] [id number] [place] [address] 49193- 1716 September, Essential hypertension, hypertension with unspecified goal I10 and Subdural hematoma I62.00 [place] [address] [place] [id number] [place] [address] 77555- 4148 September, [place] [address] [place] [id number] [place] [address] 45244- 4024 Aug, CVA (cerebral vascular accident) I63.9 [place] [address] [place] [id number] [place] [address] 66249 0888 Aug, Essential hypertension, hypertension with unspecified goal I10 [place] [address] [place] [address] 78424- 8613 Jul, Essential hypertension, hypertension with unspecified goal I10 ; Hypothyroidism E03.9 ; Depression F32.9 ; Dementia F03.90 and Falling W19.XXXA [facility] [address] [place] [address] 11878 -7409 Jul, Traumatic ecchymosis of left thigh S70.12XA IMMUNIZATIONS No Known Immunizations SOCIAL HISTORY Never Assessed REASON FOR VISIT cough/congestion/ trouble breathing upon walking- last seen in [place]ALK[place] around - no improvement of sx [facility] [place] PLAN OF CARE Activity Details Follow Up prn Reason: VITAL SIGNS Height 59 in 2017-08-19 Weight 117.7 lbs 2017-08-19 Temperature 98.0 degrees Fahrenheit 2017-08-19 Heart Rate 60 bpm 2017-08-19 Respiratory Rate 26 2017-08-19 Oximetry 93 % 2017-08-19 BMI 23.77 kg/m2 2017-08-19 Blood pressure systolic 120 mmHg 2017-08-19 Blood pressure diastolic 62 mmHg 2017-08-19 MEDICATIONS Medication Instructions Dosage Frequency Start Date End Date Duration Status Lexapro 10 mg Orally Once a day 1 tablet 24h Jun, 30 day(s) Active Atorvastatin Calcium 40 mg Orally Once a day 1 tablet 24h Active OneTouch UltraSoft Lancets - subcutaneously Once a day use to test blood sugar with 24h September, Active Omeprazole 20 mg Orally twice a day 1 capsule 12h Active Levothyroxine Sodium 112 MCG Orally Once a day 1 tablet 24h 30 days Active Amoxicillin 500 mg Orally every 8 hrs 1 capsule 8h Jul, Jul, 10 day(s) Active Amlodipine Besylate 5 mg Orally Once a day 1 tablet 24h Active ProAir HFA 108 (90 Base) MCG/ACT Inhalation every 6 hrs 2 puffs as needed 6h Active Micardis 40 TAKE ONE TABLET BY MOUTH DAILY 90 Active Amlodipine Besylate 5 TAKE ONE TABLET BY MOUTH DAILY 90 Active OneTouch Ultra Test - subcutaneously one time test blood sugars September, Active Triamcinolone Acetonide 0.1 % Externally Twice a day 1 application to affected area 12h Oct, Active Micardis 40 MG Orally Once a day 1 tablet 24h Active PredniSONE 20 mg Orally Once a day 1 tablet 24h Jul, Jul, 05 days Active OneTouch Ultra 2 w/Device subcutaneously Once a day test blood sugar 24h September, 30 days Active Ultram 50 mg Orally 2 times a day 1 tablet as needed 12h 20 Jun, 2016 Active Albuterol Sulfate (2.5 MG/3ML) 0.083% Inhalation every 6 hrs 3 ml as needed 6h Jun, 10 days Active Melatonin 300 MCG Orally Once a day 1 tablet at bedtime as needed with food 24h Active Mucinex 600 MG Orally every 12 hrs 1 tablet as needed 12h Jul, 24 Jul, 2017 10 days Active RESULTS No Results PROCEDURES Procedure Date Ordered Result Body Site [facility] VISIT ESTABLISHED PATIENT August 19, 2017 INSTRUCTIONS MEDICATIONS ADMINISTERED No Known Medications MEDICAL (GENERAL) HISTORY Type Description Date Medical History hypertension Medical History depression Medical History Diabetes Surgical History hysterectomy Surgical History Brain Surgery 08/2015 Surgical History left elbow surgery 2004 Hospitalization History Acute Renal Failure 12/2015 Hospitalization History surgery
--- OUTSIDE RECORDS SUMMARY | 2018-01-15 12:27 | XMS REPORT ---
Author Author CHRISTIE WYATT [facility] JAMAL Address [address] [place] [address] Care Team Providers Care Telephone Installer Name Role Phone CHRISTIE WYATT Unavailable PROBLEMS Type Condition ICD9-CM Code PEH49-NJ Code Onset Dates Condition Status SNOMED Code Problem Depression F32.9 Active 50629599 Problem Essential hypertension I10 Active 87298711 Problem Gastroesophageal reflux disease without esophagitis K21.9 Active 818078451 Problem Type 2 diabetes mellitus without complication, without long-term current use of insulin E11.9 Active 020122070 Problem Hypothyroidism E03.9 Active 79667538 Problem Lumbago with sciatica, unspecified side M54.40 Active 21108885 Problem Mixed hyperlipidemia E78.2 Active 600455903 ALLERGIES Substance Reaction Event Type Date Status PredniSONE elevated blood glucose Drug Allergy Jul, Active Mobic shortness of breath Drug Allergy Jul, Active Macrobid Unknown Drug Allergy Jul, Active Lisinopril shortness of breath Drug Allergy Jul, Active ENCOUNTERS Encounter Location Date Diagnosis [place] [id number] [place] [address] 42003- 5788 Oct, Hypothyroidism E03.9 [facility] [id number] [place] [address] 01939- 5404 Aug, Hypothyroidism E03.9 [facility] [id number] [place] [address] 29756- 9384 Aug, Mixed hyperlipidemia E78.2 ; Essential hypertension I10 and Hypothyroidism E03.9 [facility] [id number] [place] [address] 69268- 7143 Aug, Type 2 diabetes mellitus without complication, without long- term current use of insulin E11.9 ; Hypothyroidism E03.9 ; Essential hypertension I10 and Mixed hyperlipidemia E78.2 [facility] [id number] [place] [address] 38381 -8822 Jul, Acute nasopharyngitis J00 [facility] [address] 8[address]22 -4449 14 Jul, 2017 [facility] [address] 55794 -8400 Jul, Bronchitis J40 [place] [address] 92074- 2604 05 Jul, 2017 [facility] [address] 89130 -6549 Jun, Cough R05 and Pneumonia of left lower lobe due to infectious organism J18.[address] 05049- 9809 14 May, 2017 Cellulitis of buttock L03.317 and Wheezing R06.2 [place] [id number] [place] [address] 56603- 7370 Apr, [facility] [address] [place] [address] 51007 -4076 28 Oct, 2016 Dysuria R30.0 and Rash R21 [facility] [place] [id number] [place] [address] 57011 -8562 Oct, [place] [id number] [place] [address] 96493- 1994 Oct, [facility] [address] [place] [id number] [place] [address] 03197 -0260 Oct, Laceration of left middle finger without foreign body without damage to nail, initial encounter S61.213A and Encounter for immunization Z23 [facility] [address] [place] [id number] [place] [address] 20137 -6048 September, Dysuria R30.0 and Acute cystitis with hematuria N30.01 [place] [address] 50003- 1200 September, Hypothyroidism E03.9 ; Mixed hyperlipidemia E78.2 and Essential hypertension, hypertension with unspecified goal I10 [place] [id number] [place] [address] 65069- 2985 September, Type 2 diabetes mellitus without complication, without long- term current use of insulin E11.9 ; Essential hypertension, hypertension with unspecified goal I10 ; Mixed hyperlipidemia E78.2 and Hypothyroidism E03.9 [place] [id number] [place] [address] 77923- 5666 September, Type 2 diabetes mellitus without complication, without long- term current use of insulin E11.9 [place] [id number] [place] [address] 60376- 5906 September, [place] [address] 07869- 8260 September, [place] [id number] [place] [address] 69698- 1605 September, [place] [id number] [place] [address] 55442- 7213 September, [place] [id number] [place] [address] 17521- 5034 Aug, Common wart B07.8 and Type 2 diabetes mellitus without complication, without long-term current use of insulin E11.9 [place] [id number] [place] [address] 01632- 3056 Jul, Type 2 diabetes mellitus without complication, without long- term current use of insulin E11.9 ; Abscess L02.91 and Gastroesophageal reflux disease without esophagitis K21.9 [place] [id number] [place] [address] 01901- 0970 Jul, [place] [id number] [place] [address] 35505- 1478 Jun, Hypothyroidism E03.9 [place] [id number] [place] [address] 29124- 1160 Jun, [place] [id number] [place] [address] 08281- 7351 Jun, Type 2 diabetes mellitus without complication, without long- term current use of insulin E11.9 ; Dysuria R30.0 ; Depression F32.9 ; Mixed hyperlipidemia E78.2 ; Hypothyroidism E03.9 ; Primary insomnia F51.01 ; Gastroesophageal reflux disease without esophagitis K21.9 ; Other chronic pain G89.29 and Lumbago with sciatica, unspecified side M54.40 [place] [id number] [place] [address] 62367- 3519 Jun, [place] [address] 12750- 9098 Jun, Mixed hyperlipidemia E78.2 [place] [id number] [place] [address] 79329- 2708 May, Dental caries K02.9 [place] [id number] [place] [address] 19714- 3312 May, Acute right hip pain M25.551 [place] [id number] [place] [address] 47034- 8524 07 May, 2016 Dental examination Z01.20 [place] [id number] [place] [address] 83580- 1169 Apr, [place] [id number] [place] [address] 56797- 6435 Apr, [place] [id number] [place] [address] 50489- 9109 Apr, [place] [address] 57244- 4294 Apr, [place] [id number] [place] [address] 36490- 2326 Apr, Essential hypertension, hypertension with unspecified goal I10 ; Hypothyroidism E03.9 and Type 2 diabetes mellitus without complication, without long-term current use of insulin E11.9 [facility] [address] [facility] [id number] [address] 8[address] Jan, [facility] [address] [place] [id number] [place] [address] 27348 2546 Jan, [facility] [id number] [place] [address] 52005- 2136 Jan, Dementia F03.90 and Type 2 diabetes mellitus without complication, without long-term current use of insulin E11.9 [facility] [address] [facility] [id number] [place] [address] 58828- 2816 Jan, [facility] [id number] [place] [address] 45044- 7886 Dec, [facility] [id number] [place] [address] 55380- 6548 Dec, Essential hypertension, hypertension with unspecified goal I10 ; Depression F32.9 and Epidural hematoma S06.4X9A [facility] [id number] [place] [address] 85200- 3410 Dec, [facility] [id number] [place] [address] 59763- 6622 Dec, [facility] [id number] [place] [address] 33862- 0708 Dec, [facility] [id number] [place] [address] 58871- 0716 Dec, [facility] [address] [address]- 6952 Dec, [facility] [id number] [place] [address] 12869- 4726 Nov, [facility] [address] [place] [address] [id number] [address]- 2031 Oct, [facility] [id number] [place] [address] [id number] Oct, Dental examination Z01.20 [place] [address] [address]- 1806 September, Essential hypertension, hypertension with unspecified goal I10 and Subdural hematoma I62.00 [place] [address] [address]- 5908 September, [place] [id number] [place] [address] 69129- 7986 Aug, CVA (cerebral vascular accident) I63.9 [place] [id number] [place] [address] 17661- 0668 Aug, Essential hypertension, hypertension with unspecified goal I10 [place] [address] [address]- 9786 Jul, Essential hypertension, hypertension with unspecified goal I10 ; Hypothyroidism E03.9 ; Depression F32.9 ; Dementia F03.90 and Falling W19.XXXA [facility] [id number] [address] Jul, Traumatic ecchymosis of left thigh S70.12XA IMMUNIZATIONS No Known Immunizations SOCIAL HISTORY Never Assessed REASON FOR VISIT Wheezing Pt has had a cough and wheezing for several days, she has started her breathing treatments again at home [facility] [place] PLAN OF CARE Activity Details Follow Up prn Reason: VITAL SIGNS Height 59 in 2017-08-12 Weight 120.2 lbs 2017-08-12 Temperature 97.9 degrees Fahrenheit 2017-08-12 Heart Rate 96 bpm 2017-08-12 Respiratory Rate 22 2017-08-12 Oximetry 93 % 2017-08-12 BMI 24.27 kg/m2 2017-08-12 Blood pressure systolic 126 mmHg 2017-08-12 Blood pressure diastolic 80 mmHg 2017-08-12 MEDICATIONS Medication Instructions Dosage Frequency Start Date End Date Duration Status Amlodipine Besylate 5 TAKE ONE TABLET BY MOUTH DAILY 90 Active Micardis 40 TAKE ONE TABLET BY MOUTH DAILY 90 Active OneTouch UltraSoft Lancets - subcutaneously Once a day use to test blood sugar with 24h September, Active OneTouch Ultra Test - subcutaneously one time test blood sugars September, Active Melatonin 300 MCG Orally Once a day 1 tablet at bedtime as needed with food 24h Active Levothyroxine Sodium 112 MCG Orally Once a day 1 tablet 24h 30 days Active Amlodipine Besylate 5 mg Orally Once a day 1 tablet 24h Active Micardis 40 MG Orally Once a day 1 tablet 24h Active Mucinex 600 MG Orally every 12 hrs 1 tablet as needed 12h Jul, Jul, 10 days Active Albuterol Sulfate (2.5 MG/3ML) 0.083% Inhalation every 6 hrs 3 ml as needed 6h Jun, 10 days Active OneTouch Ultra 2 w/Device subcutaneously Once a day test blood sugar 24h September, 30 days Active Ultram 50 mg Orally 2 times a day 1 tablet as needed 12h Jun, Active Triamcinolone Acetonide 0.1 % Externally Twice a day 1 application to affected area 12h 28 Oct, 2016 Active ProAir HFA 108 (90 Base) MCG/ACT Inhalation every 6 hrs 2 puffs as needed 6h Active Omeprazole 20 mg Orally twice a day 1 capsule 12h Active Lexapro 10 mg Orally Once a day 1 tablet 24h Jun, 30 day(s) Active Atorvastatin Calcium 40 mg Orally Once a day 1 tablet 24h Active RESULTS No Results PROCEDURES Procedure Date Ordered Result Body Site [facility] VISIT ESTABLISHED PATIENT August 12, 2017 INSTRUCTIONS MEDICATIONS ADMINISTERED No Known Medications MEDICAL (GENERAL) HISTORY Type Description Date Medical History hypertension Medical History depression Medical History Diabetes Surgical History hysterectomy Surgical History Brain Surgery 08/2015 Surgical History left elbow surgery 2004 Hospitalization History Acute Renal Failure 12/2015 Hospitalization History surgery
--- OUTSIDE RECORDS SUMMARY | 2018-01-15 12:28 | XMS REPORT ---
Author Author NICO ANTONIO Organization [facility] Address [address] [place] [address] Care Team Providers Care Due Diligence Coordinator Name Role Phone NICO ANTONIO Unavailable PROBLEMS Type Condition ICD9-CM Code LDA97-ND Code Onset Dates Condition Status SNOMED Code Problem Depression F32.9 Active 16678061 Problem Essential hypertension I10 Active 07114058 Problem Gastroesophageal reflux disease without esophagitis K21.9 Active 595965239 Problem Type 2 diabetes mellitus without complication, without long-term current use of insulin E11.9 Active 052989863 Problem Hypothyroidism E03.9 Active 17849264 Problem Lumbago with sciatica, unspecified side M54.40 Active 32436910 Problem Mixed hyperlipidemia E78.2 Active 055729297 ALLERGIES No Information ENCOUNTERS Encounter Location Date Diagnosis [facility] [address] 0[address]39- 3119 Oct, Hypothyroidism E03.9 [facility] [address] 21462- 7226 Aug, Hypothyroidism E03.9 [facility] [address] 73414- 7881 Aug, Mixed hyperlipidemia E78.2 ; Essential hypertension I10 and Hypothyroidism E03.9 [facility] [address] [id number] [place] [address] 12568- 5882 Aug, Type 2 diabetes mellitus without complication, without long- term current use of insulin E11.9 ; Hypothyroidism E03.9 ; Essential hypertension I10 and Mixed hyperlipidemia E78.2 [facility] [id number] [place] [address] 36066 -1635 Jul, Acute nasopharyngitis J00 [facility] [address] 26458 -8045 14 Jul, 2017 [facility] [address] 75017 -8853 14 Jul, 2017 Bronchitis J40 [facility] [address] 32875- 3429 05 Jul, 2017 [facility] [place] [address] 11163 -3228 Jun, Cough R05 and Pneumonia of left lower lobe due to infectious organism J18.1 [place] [address] 81435- 8458 14 May, 2017 Cellulitis of buttock L03.317 and Wheezing R06.2 [place] [address] 95227- 2244 Apr, [facility] [place] [address] 21405 -3881 28 Oct, 2016 Dysuria R30.0 and Rash R21 [facility] [address] 18416 -6315 09 Oct, 2016 [place] [address] 68823- 3056 05 Oct, 2016 [facility] [address] 30305 -3309 02 Oct, 2016 Laceration of left middle finger without foreign body without damage to nail, initial encounter S61.213A and Encounter for immunization Z23 [facility] N [address] 54547 -9832 September, Dysuria R30.0 and Acute cystitis with hematuria N30.01 [place] [address] 62471- 5645 September, Hypothyroidism E03.9 ; Mixed hyperlipidemia E78.2 and Essential hypertension, hypertension with unspecified goal I10 [address] [place] [address]- 0983 September, Type 2 diabetes mellitus without complication, without long- term current use of insulin E11.9 ; Essential hypertension, hypertension with unspecified goal I10 ; Mixed hyperlipidemia E78.2 and Hypothyroidism E03.9 [place] [address] [place] [id number] [place] [address] 19941- 4021 September, Type 2 diabetes mellitus without complication, without long- term current use of insulin E11.9 [place] [address] 42654- 9189 September, [place] [address] 25647- 8309 September, [place] [address] 57455- 8409 September, [place] [address] 11327- 2278 September, [place] [address] [place] [id number] [place] [address] 00365- 0834 Aug, Common wart B07.8 and Type 2 diabetes mellitus without complication, without long-term current use of insulin E11.9 [place] [address] [id number] [place] [address] 58813- 6276 Jul, Type 2 diabetes mellitus without complication, without long- term current use of insulin E11.9 ; Abscess L02.91 and Gastroesophageal reflux disease without esophagitis K21.9 [place] [id number] [place] [address] 12611- 0201 Jul, [place] [address] [id number] [place] [address] 23048- 3508 Jun, Hypothyroidism E03.9 [place] [id number] [place] [address] 39772- 0993 Jun, [place] [address] [id number] [place] [address] 27694- 3573 Jun, Type 2 diabetes mellitus without complication, without long- term current use of insulin E11.9 ; Dysuria R30.0 ; Depression F32.9 ; Mixed hyperlipidemia E78.2 ; Hypothyroidism E03.9 ; Primary insomnia F51.01 ; Gastroesophageal reflux disease without esophagitis K21.9 ; Other chronic pain G89.29 and Lumbago with sciatica, unspecified side M54.40 [place] [address] 55389- 4718 Jun, [place] [address] 81564- 7201 Jun, Mixed hyperlipidemia E78.2 [place] [address] 79114- 5808 May, Dental caries K02.9 [place] [address] 09079- 2903 May, Acute right hip pain M25.551 [place] [address] 34385- 0363 May, Dental examination Z01.20 [place] [address] 62540- 7560 Apr, [place] [address] 88754- 0137 Apr, [place] [address] 53028- 3148 Apr, [place] [address] 34982- 6419 Apr, [place] [address] 04909- 6476 Apr, Essential hypertension, hypertension with unspecified goal I10 ; Hypothyroidism E03.9 and Type 2 diabetes mellitus without complication, without long-term current use of insulin E11.9 [place] [address] 20796- 0771 Jan, [place] [address] [id number] [place] [address] 70276- 8500 Jan, [facility] [id number] [place] [address] 15003- 0365 Jan, Dementia F03.90 and Type 2 diabetes mellitus without complication, without long-term current use of insulin E11.9 [facility] [id number] [place] [address] 79198- 3713 Jan, [facility] [id number] [place] [address] 45141- 8795 Dec, [facility] [id number] [place] [address] 62195- 8538 Dec, Essential hypertension, hypertension with unspecified goal I10 ; Depression F32.9 and Epidural hematoma S06.4X9A [facility] [id number] [place] [address] 08569- 8422 Dec, [facility] [id number] [place] [address] 01950- 1934 Dec, [facility] [id number] [place] [address] 67527- 3493 Dec, [facility] [id number] [place] [address] 24827- 4512 Dec, [facility] [address] [address]- 7617 Dec, [facility] [id number] [place] [address] 78349- 2528 Nov, [facility] [id number] [place] [address] 85281- 2269 Oct, [facility] [id number] [id number] Oct, Dental examination Z01.20 [facility] [id number] [place] [address] 89054- 7600 September, Essential hypertension, hypertension with unspecified goal I10 and Subdural hematoma I62.00 [facility] [address] [address]- 8454 September, [facility] [address] [address]- 2022 11 Aug, 2015 CVA (cerebral vascular accident) I63.9 [place] [address] [address]- 3911 11 Aug, 2015 Essential hypertension, hypertension with unspecified goal I10 [facility] [address] [address]- 2785 29 Jul, 2015 Essential hypertension, hypertension with unspecified goal I10 ; Hypothyroidism E03.9 ; Depression F32.9 ; Dementia F03.90 and Falling W19.XXXA [facility] [address] [address]12 Jul, Traumatic ecchymosis of left thigh S70.12XA [...]
--- OUTSIDE RECORDS SUMMARY | 2018-01-15 12:29 | XMS REPORT ---
Author Author JILLIAN GODWIN [facility] Address [address] [place] [address] Care Team Providers Care Primer Inserting Machine Adjuster Name Role Phone JILLIAN GODWIN Unavailable PROBLEMS Type Condition ICD9-CM Code NMZ14-KM Code Onset Dates Condition Status SNOMED Code Problem Essential hypertension, hypertension with unspecified goal I10 Active 48433306 Problem Type 2 diabetes mellitus without complication, without long-term current use of insulin E11.9 Active 008944638 Problem Epidural hematoma S06.4X9A Active 095959960 Problem Dementia F03.90 Active 19731361 Problem Depression F32.9 Active 62291027 Problem Hypothyroidism E03.9 Active 52979530 Problem Wheezing R06.2 Active 16242798 Problem Primary insomnia F51.01 Active 2992407 Problem Gastroesophageal reflux disease without esophagitis K21.9 Active 434796909 Problem Mixed hyperlipidemia E78.2 Active 828669640 Problem Other chronic pain G89.29 Active 79236802 Problem Lumbago with sciatica, unspecified side M54.40 Active 27433786 ALLERGIES No Information ENCOUNTERS Encounter Location Date Diagnosis [facility] [id number] [place] [address] 42244 -0909 14 Jul, 2017 [facility] [id number] [place] [address] 57488 -0498 14 Jul, 2017 Bronchitis J40 [facility] [address] [place] [address] 13476- 8625 05 Jul, 2017 [facility] [id number] [place] [address] 37373 -8599 Jun, Cough R05 and Pneumonia of left lower lobe due to infectious organism J18.1 [facility] [address] [place] [address] 83355- 9639 May, Cellulitis of buttock L03.317 and Wheezing R06.2 [facility] [id number] [place] [address] 78641- 3680 Apr, [facility] [id number] [place] [address] 68934 -4231 Oct, Dysuria R30.0 and Rash R21 [facility] [place] [address] [address]99 Oct, [facility] [id number] [place] [address] 42486- 7172 Oct, [facility] [place] [address] 73921 -2431 Oct, Laceration of left middle finger without foreign body without damage to nail, initial encounter S61.213A and Encounter for immunization Z23 [facility] [place] [id number] [place] [address] 01828 -9998 September, Dysuria R30.0 and Acute cystitis with hematuria N30.01 [place] [id number] [place] [address] 71623- 1261 September, Hypothyroidism E03.9 ; Mixed hyperlipidemia E78.2 and Essential hypertension, hypertension with unspecified goal I10 [place] [id number] [place] [address] 40552- 4921 September, Type 2 diabetes mellitus without complication, without long- term current use of insulin E11.9 ; Essential hypertension, hypertension with unspecified goal I10 ; Mixed hyperlipidemia E78.2 and Hypothyroidism E03.9 [place] [id number] [place] [address] 97988- 0216 September, Type 2 diabetes mellitus without complication, without long- term current use of insulin E11.9 [place] [id number] [place] [address] 30964- 4287 September, [place] [id number] [place] [address] 02229- 9428 September, [place] [id number] [place] [address] 74231- 7681 September, [place] [address] 80894- 9933 September, [place] [address] 32924- 5818 Aug, Common wart B07.8 and Type 2 diabetes mellitus without complication, without long-term current use of insulin E11.9 [place] [address] 10944- 9286 Jul, Type 2 diabetes mellitus without complication, without long- term current use of insulin E11.9 ; Abscess L02.91 and Gastroesophageal reflux disease without esophagitis K21.9 [place] [address] 57217- 6252 Jul, [place] [address] 89484- 3548 Jun, Hypothyroidism E03.9 [place] [id number] [place] [address] 69246- 9101 Jun, [place] [id number] [place] [address] 58289- 3897 Jun, Type 2 diabetes mellitus without complication, without long- term current use of insulin E11.9 ; Dysuria R30.0 ; Depression F32.9 ; Mixed hyperlipidemia E78.2 ; Hypothyroidism E03.9 ; Primary insomnia F51.01 ; Gastroesophageal reflux disease without esophagitis K21.9 ; Other chronic pain G89.29 and Lumbago with sciatica, unspecified side M54.40 [place] [id number] [place] [address] 64117- 2025 Jun, [place] [id number] [place] [address] 88693- 2265 Jun, Mixed hyperlipidemia E78.2 [place] [address] 94242- 5876 May, Dental caries K02.9 [facility] [address] [place] [address] 83004- 8448 May, Acute right hip pain M25.551 [facility] [address] [place] [address] 86234- 6377 07 May, 2016 Dental examination Z01.20 [facility] [id number] [place] [address] 57880- 2924 Apr, [facility] [id number] [place] [address] 39059- 7501 Apr, [facility] [id number] [place] [address] 51942- 9909 Apr, [place] [id number] [place] [address] 99743- 9614 Apr, [facility] [id number] [place] [address] 21887- 4715 Apr, Essential hypertension, hypertension with unspecified goal I10 ; Hypothyroidism E03.9 and Type 2 diabetes mellitus without complication, without long-term current use of insulin E11.9 [place] [address] [place] [address] 72428- 4345 Jan, [facility] [address] [place] [address] 31676- 9206 Jan, [facility] [id number] [place] [address] 13075- 3832 Jan, Dementia F03.90 and Type 2 diabetes mellitus without complication, without long-term current use of insulin E11.9 [facility] [id number] [place] [address] 23450- 5332 Jan, [facility] [address] [place] [address] 03156- 2521 Dec, [facility] [id number] [place] [address] 58587- 9320 Dec, Essential hypertension, hypertension with unspecified goal I10 ; Depression F32.9 and Epidural hematoma S06.4X9A [facility] [address] [place] [address] 41589- 3134 Dec, [facility] [address] [address] 9025 Dec, [facility] [id number] [place] [address] 77698- 7081 Dec, [facility] [address] [place] [address] 95799- 9001 Dec, [facility] [id number] [place] [address] 57658- 7397 Dec, [facility] [id number] [place] [address] 31481- 0024 Nov, [facility] [id number] [place] [address] 86518- 5814 Oct, [facility] [address] [place] [address] [id number] Oct, Dental examination Z01.20 [facility] [address] [place] [address] 95460- 3112 September, Essential hypertension, hypertension with unspecified goal I10 and Subdural hematoma I62.00 [facility] [address] [place] [address] 77396- 9506 September, [facility] [address] [place] [address] 04139- 8766 Aug, CVA (cerebral vascular accident) I63.9 [facility] [address] [place] [address] 84431- 9400 Aug, Essential hypertension, hypertension with unspecified goal I10 [facility] [address] [address] 7090 Jul, Essential hypertension, hypertension with unspecified goal I10 ; Hypothyroidism E03.9 ; Depression F32.9 ; Dementia F03.90 and Falling W19.XXXA [facility] [address] [facility] [id number] [place] [address] Jul, Traumatic ecchymosis of left thigh S70.12XA IMMUNIZATIONS No Known Immunizations SOCIAL HISTORY Never Assessed REASON FOR VISIT Suture removal. MAYLIN Pederson. PLAN OF CARE VITAL SIGNS MEDICATIONS Unknown Medications RESULTS No Results PROCEDURES No Known procedures INSTRUCTIONS MEDICATIONS ADMINISTERED No Known Medications MEDICAL (GENERAL) HISTORY Type Description Date Medical History hypertension Medical History depression Medical History Diabetes Surgical History hysterectomy Surgical History Brain Surgery 08/2015 Surgical History left elbow surgery 2003 Hospitalization History Acute Renal Failure 12/2015 Hospitalization History surgery
[2018-01-15 12:30] VITALS: BP 180/79
--- OUTSIDE RECORDS SUMMARY | 2018-01-15 12:30 | XMS REPORT ---
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 Mechanic Technician Name Role Phone WILDA MAHONEY Unavailable PROBLEMS Type Condition ICD9-CM Code IQN09-SP Code Onset Dates Condition Status SNOMED Code Problem Essential hypertension, hypertension with unspecified goal I10 Active 41371457 Problem Type 2 diabetes mellitus without complication, without long-term current use of insulin E11.9 Active 279196398 Problem Epidural hematoma S06.4X9A Active 855791871 Problem Dementia F03.90 Active 87265436 Problem Depression F32.9 Active 23469232 Problem Hypothyroidism E03.9 Active 86972949 Problem Wheezing R06.2 Active 48808866 Problem Primary insomnia F51.01 Active 8616835 Problem Gastroesophageal reflux disease without esophagitis K21.9 Active 891481659 Problem Mixed hyperlipidemia E78.2 Active 319858443 Problem Other chronic pain G89.29 Active 60788427 Problem Lumbago with sciatica, unspecified side M54.40 Active 66319623 ALLERGIES Substance Reaction Event Type Date Status Mobic shortness of breath Drug Allergy Oct, Active Macrobid Unknown Drug Allergy Oct, Active Lisinopril shortness of breath Drug Allergy Oct, Active ENCOUNTERS Encounter Location Date Diagnosis [facility] [id number] [address] Jul, Acute nasopharyngitis J00 [facility] [id number] [address] Jul, [facility] [id number] [address] Jul, Bronchitis J40 [facility] [id number] [address] Jul, [facility] [address] [place] [id number] [place] [address] 72701 -5853 30 Jun, 2017 Cough R05 and Pneumonia of left lower lobe due to infectious organism J18.[address] 55123- 4983 14 May, 2017 Cellulitis of buttock L03.317 and Wheezing R06.[address] 64690- 3940 Apr, [facility] [address] [address]67 Oct, Dysuria R30.0 and Rash R21 [facility] [address] [address] -4223 Oct, [address] 96257- 6405 Oct, [facility] [address] 016[address] -1353 Oct, Laceration of left middle finger without foreign body without damage to nail, initial encounter S61.213A and Encounter for immunization Z23 [facility] [address] [address]4443 September, Dysuria R30.0 and Acute cystitis with hematuria N30.[address] 42500- 2395 September, Hypothyroidism E03.9 ; Mixed hyperlipidemia E78.2 and Essential hypertension, hypertension with unspecified goal I10 [address] 73986- 1557 September, Type 2 diabetes mellitus without complication, without long- term current use of insulin E11.9 ; Essential hypertension, hypertension with unspecified goal I10 ; Mixed hyperlipidemia E78.2 and Hypothyroidism E03.[address] 44794- 3144 September, Type 2 diabetes mellitus without complication, without long- term current use of insulin E11.9 [place] [address] [place] [address] [id number] [place] [address] 86127- 9659 September, [place] [address] [address] [id number] [place] [address] 26467- 0298 September, [place] [address] 67963- 4207 September, [place] [address] 36870- 5093 September, [place] [address] 46993- 3721 Aug, Common wart B07.8 and Type 2 diabetes mellitus without complication, without long-term current use of insulin E11.9 [place] [id number] [place] [address] 01586- 4511 Jul, Type 2 diabetes mellitus without complication, without long- term current use of insulin E11.9 ; Abscess L02.91 and Gastroesophageal reflux disease without esophagitis K21.9 [place] [id number] [place] [address] 58399- 0667 Jul, [place] [address] [id number] [place] [address] 56449- 3464 Jun, Hypothyroidism E03.9 [place] [id number] [place] [address] 08614- 9770 Jun, [place] [address] [id number] [place] [address] 01035- 7848 Jun, Type 2 diabetes mellitus without complication, without long- term current use of insulin E11.9 ; Dysuria R30.0 ; Depression F32.9 ; Mixed hyperlipidemia E78.2 ; Hypothyroidism E03.9 ; Primary insomnia F51.01 ; Gastroesophageal reflux disease without esophagitis K21.9 ; Other chronic pain G89.29 and Lumbago with sciatica, unspecified side M54.40 [place] [address], [place] [address] Jun, [facility] [id number] [place] [address] 90034- 1512 Jun, Mixed hyperlipidemia E78.2 [facility] [id number] [place] [address] 58408- 5781 May, Dental caries K02.9 [facility] [address] [place] [address] [id number] [place] [address] 80605- 1291 15 May, 2016 Acute right hip pain M25.551 [facility] [address] [place] [id number] [place] [address] 30621- 6035 07 May, 2016 Dental examination Z01.20 [facility] [address] [id number] [place] [address] 95994- 3147 18 Apr, 2016 [place] [address] [address] [id number] [place] [address] 73334- 1753 Apr, [facility] [address] [address] [id number] [place] [address] 21753- 1554 Apr, [facility] [address] [address] [id number] [place] [address] 95521- 5360 Apr, [facility] [address] [place] [address] 61066- 3741 Apr, Essential hypertension, hypertension with unspecified goal I10 ; Hypothyroidism E03.9 and Type 2 diabetes mellitus without complication, without long-term current use of insulin E11.9 [facility] [address] [place] [address] 92238- 4922 Jan, [facility] [id number] [place] [address] 46246- 5555 Jan, [facility] [address] [place] [address] 05094- 2532 Jan, Dementia F03.90 and Type 2 diabetes mellitus without complication, without long-term current use of insulin E11.9 [facility] [address], [place] [address]- 0162 Jan, [facility] [id number] [place] [address] 43135- 4904 Dec, [facility] [address], [place] [address] Dec, Essential hypertension, hypertension with unspecified goal I10 ; Depression F32.9 and Epidural hematoma S06.4X9A [facility] [address], [place] [address] 2[address] Dec, [facility] [id number] [place] [address] 32231- 1729 Dec, [facility] [id number] [place] [address] 33769- 0850 Dec, [facility] [id number] [place] [address] 09954- 8618 Dec, [facility] [address] [place] [address] 37688- 2428 Dec, [facility] [address] [place] [address] 00632- 0879 Nov, [facility] [address] [address] Oct, [facility] [address] [id number] Oct, Dental examination Z01.20 [facility] [address] [address] September, Essential hypertension, hypertension with unspecified goal I10 and Subdural hematoma I62.00 [facility] [address], [place] [address] September, [facility] [address] [address] Aug, CVA (cerebral vascular accident) I63.9 [facility] [address] [facility] [id number] [place] [address] Aug, Essential hypertension, hypertension with unspecified goal I10 [facility] [address] [facility] [id number] [address] Jul, Essential hypertension, hypertension with unspecified goal I10 ; Hypothyroidism E03.9 ; Depression F32.9 ; Dementia F03.90 and Falling W19.XXXA [facility] [address] [facility] [id number] [place] [address] Jul, Traumatic ecchymosis of left thigh S70.12XA IMMUNIZATIONS No Known Immunizations SOCIAL HISTORY Never Assessed REASON FOR VISIT uti started yesterday JStraVerónica, Rash right hand PLAN OF CARE VITAL SIGNS Height 59 in 2016-11-26 Weight 116 lbs 2016-11-26 Temperature 97.8 degrees Fahrenheit 2016-11-26 Heart Rate 64 bpm 2016-11-26 Respiratory Rate 22 2016-11-26 BMI 23.43 kg/m2 2016-11-26 Blood pressure systolic 132 mmHg 2016-11-26 Blood pressure diastolic 90 mmHg 2016-11-26 MEDICATIONS Medication Instructions Dosage Frequency Start Date [...] application to affected area 12h Oct, Active Levothyroxine Sodium 112 MCG Orally Once a day 1 tablet 24h 30 days Active Atorvastatin Calcium 40 TAKE ONE TABLET BY MOUTH DAILY 30 Active Lexapro 10 TAKE ONE TABLET BY MOUTH DAILY 30 Active Omeprazole 20 mg Orally twice a day 1 capsule 12h Active FastlyTouch Ultra Test - subcutaneously one time test blood sugars September, Active FastlyTouch Ultra 2 w/Device subcutaneously Once a day test blood sugar 24h September, 30 days Active Amlodipine Besylate 5 mg Orally Once a day 1 tablet 24h Active Levothyroxine Sodium 112 TAKE ONE TABLET BY MOUTH DAILY ON AN EMPTY STOMACH 30 Active Lexapro 10 mg Orally Once a day 1 tablet 24h Jun, 30 day(s) Active Bactrim DS 800-160 MG Orally Twice a day 1 tablet 12h 28 Oct, 2016 Nov, 10 day(s) Active OneTouch UltraSoft Lancets - subcutaneously Once a day use to test blood sugar with 24h September, Active Melatonin 300 MCG Orally Once a day 1 tablet at bedtime as needed with food 24h Active Levothyroxine Sodium 112 mcg TAKE ONE TABLET BY MOUTH DAILY ON AN EMPTY STOMACH 30 Active RESULTS Name Result Date Reference Range UA LONG DIP (IN HOUSE) 2016-11-26 Lot # [id number] Exp date 2017-10-29 Clarity cloudy Color yellow Odor strong GLU negative RODDY negative KET negative SG 1.020 BLO trace-intact pH 6.0 Protein negative URO 0.2 NIT positive ELIEZER 1+ Lot # [id number] Exp date 2017-07 CULTURE, URINE 2016-11-26 Urine Culture, Routine Final report Result 1 Escherichia coli Antimicrobial Susceptibility PROCEDURES Procedure Date Ordered Result Body Site URINALYSIS, AUTO, W/O SCOPE November 26, 2016 LAB NOT BILLED BY [facility] November 26, 2016 FQ VISIT ESTABLISHED PATIENT November 26, 2016 INSTRUCTIONS MEDICATIONS ADMINISTERED No Known Medications MEDICAL (GENERAL) HISTORY Type Description Date Medical History hypertension Medical History depression Medical History Diabetes Surgical History hysterectomy Surgical History Brain Surgery 08/2015 Surgical History left elbow surgery 2004 Hospitalization History Acute Renal Failure 12/2015 Hospitalization History surgery
--- NOTE | 2018-01-15 13:23 | D/C HH Face to Face Order ---
D/C HH Face to Face Orders Instructions for Patient Patient Instructions/FollowUp: -take medications as prescribed -follow up with Dr. Solorio next week -Home Health with PT and OT Physician to follow Patient: Dr. Solorio Discharge Diet for Home: Cardiac Diet Patient Problems: Acute Cystitis without Hematuria Hypertension Severe Dementia with Hallucinations - chronic General Debility Type II Diabetes without tank terminal gauger insulin use Hypothyroidism Depression GERD Mixed Hyperlipidemia Lumbago with Sciatica Goals for Patient: Take Medications As Directed Evaluate for safety at home Strength building and home safety Patient Data-Allergies,Ht & Wt Patient Allergies: Coded Allergies: lisinopril (Verified Allergy, Mild, SWELLING, COULDN'T BREATHE, 01/12/16) Height (Feet): 5 Height (Inches): 2.00 Weight (Pounds): 122 Weight (Ounces): 0.0 Changed Medications: Sulfamethoxazole/Trimethoprim (Bactrim Ds Tablet) 1 Each Tablet 1 TAB PO BID for 8 Days, #16 TAB (Changed from: 10; 10 DAY SUPPLY FILLED 01-07-18) take for 8 days from 01/15 Continued Medications: Amlodipine Besylate (Amlodipine Besylate) 5 Mg Tablet 5 MG PO DAILY, TAB Aspirin/Caffeine (Suzanna Back & Body Caplet) 1 Each Tablet 2 TAB PO DAILY, TAB Atorvastatin Calcium (Atorvastatin Calcium) 40 Mg Tablet 40 MG PO DAILY, TAB Escitalopram Oxalate (Escitalopram Oxalate) 10 Mg Tablet 10 MG PO DAILY, TAB Glipizide (Glipizide) 5 Mg Tablet 5 MG PO DAILY, TAB Guaifenesin/Dextromethorphan (Mucus Relief Dm Tablet) 1 Each Tablet 1 TAB PO Q4H PRN for CONGESTION, TAB Ibuprofen (Advil) 200 Mg Tablet 400 MG PO Q6H PRN for PAIN-MILD, TAB Levothyroxine Sodium (Levothyroxine Sodium) 100 Mcg Tablet 100 MCG PO DAILY, TAB Loratadine (Loratadine) 10 Mg Tablet 10 MG PO DAILY PRN for ALLERGIES, TAB Melatonin (Melatonin) 5 Mg Tablet 5 MG PO HS, TAB Mupirocin (Mupirocin) 22 Gm Oint...g. TOP TID PRN for SORES, EA Omeprazole (Omeprazole) 20 Mg Capsule.dr 20 MG PO BID, CAP Telmisartan (Telmisartan) 40 Mg Tablet 40 MG PO DAILY, TAB Home Health Need/Face to Face Date of Face to Face: Jan 15, 2018 Clinical Findings: Generalized weakness and fatigue, Other-list in note ( confusion, severe dementia, visual hallucinations) I have seen Pt [id number]: Yes Discharged To: Home Diagnosis/Conditions: Acute Cystitis without Hematuria Severe Dementia with Visual Hallucinations Depression Hypertension Hypothyroidism Type II Diabetes without tank terminal gauger [place] GERD Generalized Debility Patient is Homebound due to: CognItive deficits Homebound Status Due to the above stated illness, injury or surgical procedure (medical condition or diagnosis) and associated clinical findings, the patient is homebound because of his/her inability to leave home except with aid of a supportive device and/or person AND leaving the home requires a considerable and taxing effort or is medically contraindicated. Pt req the following assistanc: Aid of another person Home Health Nursing Orders Home Health Services Order: Nursing Services, Sr. Manager-Evaluate & Treat, Physical Therapy-Evaluate & Treat Therapy Orders Therapy Orders: Physical Therapy, PT to assess for OT Therapy Specific Orders: Teach strategies/cognitive deficits, Teach enviro modifications/safety, Increase strength/endurance Certify Stmt I certify that this patient is under my care and that I, a nurse practitioner or a physician; a dental assistant instructor working with me, had a face to face encounter that - meets the physician face to face encounter requirements with this patient as dated. ALEXANDRIA GOODMAN DO Jan 15, 2018 13:10
--- NOTE | 2018-01-15 13:42 | Short Stay Summary ---
History of Present Illness History of Present Illness Reason for visit/HPI Patient presented to ED last night with report of increasing confusing and hallucinations; pt is currently being treated for a UTI, she was started on Bactrim DS BID at the [facility] clinic for dysuria and a urine culture was sent. Clinic records reviewed that urine culture obtained 01/07 before starting abx showed no growth. A new culture was obtained in the ED and the patient was started on Rocephin. The pt had a head CT that showed no acute changes. She was placed in observation for monitoring of her hallucinations and IV abx. Date of Admission Jan 14, 2018 at 18:17 Date of Discharge 01/15/18 Time Seen by Provider: 12:00 Attending Physician Heidy Gutierrez MD Admitting Physician Rickie Solorio MD Consult Allergies and Home Medications Allergies Coded Allergies: lisinopril (Verified Allergy, Mild, SWELLING, COULDN'T BREATHE, 01/12/16) Home Medications Amlodipine Besylate 5 Mg Tablet, 5 MG PO DAILY, (Reported) Aspirin/Caffeine 1 Each Tablet, 2 TAB PO DAILY, (Reported) Atorvastatin Calcium 40 Mg Tablet, 40 MG PO DAILY, (Reported) Escitalopram Oxalate 10 Mg Tablet, 10 MG PO DAILY, (Reported) Glipizide 5 Mg Tablet, 5 MG PO DAILY, (Reported) Guaifenesin/Dextromethorphan 1 Each Tablet, 1 TAB PO Q4H PRN for CONGESTION, ( Reported) Ibuprofen 200 Mg Tablet, 400 MG PO Q6H PRN for PAIN-MILD, (Reported) Levothyroxine Sodium 100 Mcg Tablet, 100 MCG PO DAILY, (Reported) Loratadine 10 Mg Tablet, 10 MG PO DAILY PRN for ALLERGIES, (Reported) Melatonin 5 Mg Tablet, 5 MG PO HS, (Reported) Mupirocin 22 Gm Oint...g., TOP TID PRN for SORES, (Reported) Omeprazole 20 Mg Capsule.dr, 20 MG PO BID, (Reported) Sulfamethoxazole/Trimethoprim 1 Each Tablet, 1 TAB PO BID take for 8 days from 01/15 Prescribed by: ALEXANDRIA GOODMAN on 01/15/18 1303 Telmisartan 40 Mg Tablet, 40 MG PO DAILY, (Reported) Patient Home Medication List Home Medication List Reviewed: Yes Past Rsyprxp-Wfmpmj-Glhnvy Hx Patient Social History Living Status: lives with daughter Employed/Student: retired Alcohol Use: Denies Use Number of Drinks Today: AA Recreational Drug Use: No Smoking Status: Never a Smoker 2nd Hand Smoke Exposure: No Physical Abuse Screen: No Sexual Abuse: No Recent Foreign Travel: No Contact w/other who traveled: No Recent Hopitalizations: Yes Recent Infectious Disease Expo: No Immunizations Up To Date Tetanus Booster (TDap): Less than 5yrs Date of Pneumonia Vaccine: Mar 01, 2010 Date of Influenza Vaccine: Mar 01, 2015 Seasonal Allergies Seasonal Allergies: No Surgeries Yes (SURGERY/PINS ON RODDY FEET, BRAIN SX-BEIGN TUMOR, crainiotomy) Hysterectomy, Oophorectomy, Orthopedic Respiratory No Currently Using CPAP: No Currently Using BIPAP: No Cardiovascular Yes High Cholesterol, Hypertension Neurological Yes (Fall with head bleed) 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), Dementia (severe) , Traumatic Brain Injury 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 System : No Hx 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 Disorders: No Sexually Transmitted Disease: No HIV/AIDS: No Female 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 Disorders: 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 Genitourinary Yes Renal Failure, UTI-Chronic Gastrointestinal Yes Gastroesophageal Reflux Musculoskeletal Yes Arthritis Endocrine History of Endocrine Disorders: Yes Endocrine Disorders: Hypothyroidsim, Diabetes, Non-Insulin dep HEENT History of HEENT Disorders: Yes Loss of Vision: Denies Hearing Impairment: Hard of Hearing Cancer No Psychosocial History of Psychiatric Problem: Yes (hallucinations, secondary to her dementia) Behavioral Health Disorders: Depression Integumentary History of Skin or Integumenta: No Blood Transfusions History of Blood Disorders: No Family Medical History Significant Family History: Heart Disease, COPD Family Hx: Cardiovascular disease DAUGHTER Diabetes mellitus DAUGHTER Respiratory disorder DAUGHTER Constitutional: see HPI, malaise EENTM: no symptoms reported Respiratory: no symptoms reported Cardiovascular: no symptoms reported Gastrointestinal: no symptoms reported Genitourinary: see HPI, dysuria : No Musculoskeletal: no symptoms reported Skin: no symptoms reported Psychiatric/Neurological: Pre-Existing Deficit (severe dementia) Physical Exam Vital Signs Vital Signs - First Documented 01/14/18 01/14/18 16:20 18:41 Temp 96.5 Pulse 89 Resp 16 B/P (MAP) 143/55 (84) Pulse Ox 95 O2 Delivery Room Air Capillary Refill : Less Than 3 Seconds Height, Weight, BMI Height: 5'2.00" Weight: 122lbs. 0.0oz. [id number]; 22.3 BMI Method:Stated General Appearance: No Apparent Distress, WD/WN, Thin Eyes: Bilateral Eye Normal Inspection, Bilateral Eye EOMI HEENT: Normal ENT Inspection Neck: Full Range of Motion, Normal Inspection, Non Tender, Supple Respiratory: Chest Non Tender, Lungs Clear, Normal Breath Sounds, No Accessory Muscle Use, No Respiratory Distress Cardiovascular: Regular Rate, Rhythm, No Edema, No Gallop, Normal Peripheral Pulses Gastrointestinal: Normal Bowel Sounds, No Organomegaly, No Pulsatile Mass, Non Tender, Soft; No Guarding Rectal: Deferred Extremity: Normal Capillary Refill, Normal Inspection, Normal Range of Motion, Non Tender, No Calf Tenderness, No Pedal Edema Neurologic/Psychiatric: Alert, Normal Mood/Affect, operations clerk II-XII Norm as Tested, Other (oriented to self, not oriented to time) Skin: Normal Color, Warm/Dry Clinical Quality Measures DVT/VTE Risk/Contraindication: Risk Factor Score Per Nursin RFS Level Per Nursing on Admit: 3=High Short Stay Diagnosis Discharge Diagnosis-Short Stay Admission Diagnosis: Acute Cystitis without Hematuria Severe Dementia with Visual Hallucinations Depression Hypertension Hypothyroidism Type II Diabetes without intermediate card tender [place] GERD Generalized Debility Final Discharge Diagnosis: Acute Cystitis without Hematuria Severe Dementia with Visual Hallucinations Depression Hypertension Hypothyroidism Type II Diabetes without intermediate card tender [place] GERD Generalized Debility Conclusion Labs Laboratory Tests 01/14/18 16:41: White Blood Count 10.5, Red Blood Count 4.39, Hemoglobin 13.0, Hematocrit 38, Mean Corpuscular Volume 87, Mean Corpuscular Hemoglobin 30, Mean Corpuscular Hemoglobin Concent 34, Red Cell Distribution Width 13.8, Platelet Count 249, Mean Platelet Volume 10.2, Neutrophils (%) (Auto) 84H, Lymphocytes (%) (Auto) 11L, Monocytes (%) (Auto) 5, Eosinophils (%) (Auto) 0, Basophils (%) (Auto) 0, Neutrophils # (Auto) 8.8H, Lymphocytes # (Auto) 1.1, Monocytes # (Auto) 0.5, Eosinophils # (Auto) 0.0, Basophils # (Auto) 0.0, Sodium Level 137, Potassium Level 3.6, Chloride Level 105, Carbon Dioxide Level 21, Anion Gap 11, Blood Urea Nitrogen 28H, Creatinine 1.70H, Estimat Glomerular Filtration Rate 29, BUN/ Creatinine Ratio 16, Glucose Level 43*L, Calcium Level 10.1, Corrected Calcium , Total Bilirubin 0.3, Aspartate Amino Transf (AST/SGOT) 46H, Alanine Aminotransferase (ALT/SGPT) 31, Alkaline Phosphatase 93, Total Creatine Kinase 263H, Total Protein 8.0, Albumin 4.6H 01/14/18 16:55: Lactic Acid Level 1.15 01/14/18 17:00: Urine Color YELLOW, Urine Clarity CLEAR, Urine pH 5, Urine Specific [place] 1.025H, Urine Protein 2+H, Urine Glucose (UA) NEGATIVE, Urine Ketones NEGATIVE, Urine Nitrite POSITIVEH, Urine Bilirubin NEGATIVE, Urine Urobilinogen NORMAL, Urine Leukocyte Esterase 2+H, Urine RBC (Auto) 2+H, Urine RBC 0-2, Urine WBC 10- 25H, Urine Squamous Epithelial Cells 0-2, Urine Crystals NONE, Urine Bacteria MODERATEH, Urine Casts NONE, Urine Mucus NEGATIVE, Urine Culture Indicated YES 01/14/18 18:32: Glucometer 198H 01/14/18 21:25: Glucometer 240H 01/15/18 05:05: White Blood Count 5.9, Red Blood Count 3.98L, Hemoglobin 11.4L, Hematocrit 35, Mean Corpuscular Volume 88, Mean Corpuscular Hemoglobin 29, Mean Corpuscular Hemoglobin Concent 33, Red Cell Distribution Width 14.0, Platelet Count 231, Mean Platelet Volume 10.6H, Neutrophils (%) (Auto) 58, Lymphocytes (%) (Auto) 30 , Monocytes (%) (Auto) 11, Eosinophils (%) (Auto) 1, Basophils (%) (Auto) 0, Neutrophils # (Auto) 3.4, Lymphocytes # (Auto) 1.8, Monocytes # (Auto) 0.6, Eosinophils # (Auto) 0.1, Basophils # (Auto) 0.0, Sodium Level 139, Potassium Level 4.1, Chloride Level 110H, Carbon Dioxide Level 20L, Anion Gap 9, Blood Urea Nitrogen 16, Creatinine 1.14, Estimat Glomerular Filtration Rate 46, BUN/ Creatinine Ratio 14, Glucose Level 90, Calcium Level 9.3 01/15/18 05:23: Glucometer 91 01/15/18 10:23: Glucometer 123H 01/15/18 13:30: Glucometer 185H Microbiology 01/14/18 Urine Culture - Preliminary, Resulted Sent To [facility] Conclusion/Plan Patient with stable labs on the morning of 01/15. She reports that she lives at home with her daughter. Her daughter was contacted, and inquired about the patient's baseline status, because she is currently very calm and cooperative, but is having visual hallucinations. When speaking with her daughter, it is reported that her mom (the patient) has dementia that is quite severe and that she hallucinates fairly often. These do not cause patient any distress. Discussed that from a clinical infection standpoint, that we were comfortable discharging the patient to home; offered to have social work look into placement for the patient, as her dementia appears fairly progressed, but the daughter states that she and the DPOA have talked about it and they do not want her in a usp. Daughter states that they are going to get "some private help" at the home set up soon. Is agreeable to having home health see patient and evaluate for home safety and possible need for home PT and/or OT if indicated. Will consult home health, and discharge patient on oral abx, as she has remained afebrile, no elevation in her WBC count. ERX to [facility], if current culture comes back requiring different abx, will contact her and send new rx to pharmacy. Pt to follow up with Dr. Solorio in 1 week. Copy Copies To 1: [facility]/ALEXANDRIA NICHOLAS DO Jan 15, 2018 13:42
[2018-01-15] MEDS ORDERED: PANTOPRAZOLE 20 MG TABLET (PROTONIX) PO SCH (16:00)
[2018-01-15] MEDS ORDERED: MELATONIN 3 MG TABLET PO SCH (21:00)
[2018-01-16] MEDS ORDERED: LEVOTHYROXINE 100 MCG (LEVOTHROID) TAB PO SCH (06:30)
[2018-01-16] MEDS ORDERED: glipiZIDE 5 MG (GLUCOTROL) TAB PO SCH (07:00)
[2018-01-16] MEDS ORDERED: TELMISARTAN 40 MG (MICARDIS) TAB PO SCH (09:00)
[2018-01-16] MEDS ORDERED: CAFFEINE PO SCH (09:00)
[2018-01-16] MEDS ORDERED: ATORVASTATIN 40 MG (LIPITOR) TABLET PO SCH (09:00)
[2018-01-16] MEDS ORDERED: amLODIPine 5 MG (NORVASC) TAB PO SCH (09:00)
[2018-01-16] MEDS ORDERED: ASPIRIN PO SCH (09:00)
== END 2018-01-15 15:00 | disposition home health service (06) ==
LOC: EDUNIT# 16:11 → ER 16:12 → 4TH 18:17
PROVIDERS: ADMIT Family Medicine; ATTEND Family Medicine
DX: N30.00 Acute cystitis without hematuria (principal); F03.90 Unspecified dementia, unspecified severity, without behavioral disturbance, psychotic disturbance, mood disturbance, and anxiety; R44.1 Visual hallucinations; F32.9 Major depressive disorder, single episode, unspecified; I10 Essential (primary) hypertension; E03.9 Hypothyroidism, unspecified; E78.00 Pure hypercholesterolemia, unspecified; E11.9 Type 2 diabetes mellitus without complications; K21.9 Gastro-esophageal reflux disease without esophagitis; R53.81 Other malaise; E86.0 Dehydration; H91.90 Unspecified hearing loss, unspecified ear; Z87.820 Personal history of traumatic brain injury
CPT/HCPCS: 36415; 51701; 70450; 71045; 80048; 80053; 81000; 82550; 82962; 83605; 85025; 87040; 87088; 87186; 93005; 94760; G0378

== ENCOUNTER 2018-10-20 13:20 | Emergency (ER) | payer MEDICARE, OTHER, MEDICAID ==
[~2018-10-20] VITALS: Ht 157.5 cm; Wt 52.2 kg
[~2018-10-20 13:20] MED LIST changes: +AMLO5TAB9 PO; +ASPI-816 PO; +ATOR40TA70 PO; +ESCI10TA55 PO; +GUAI1TAB22 PO; +HYDR-4226 PO; -HYDR-757 PO; +IBUP-30 PO; +LEVO100T7 PO; +LORA10TA7 PO; +MUPI22OI2 TOP; +OMEP20CA12 PO; +SULF1TAB35 PO; +TELM40TA3 PO
[2018-10-20 15:44] VITALS: BP 149/66
== END 2018-10-20 15:44 | disposition left against medical advice (07) ==
LOC: EDUNIT# 13:20 → ER 13:21
DX: S91.309A Unspecified open wound, unspecified foot, initial encounter (principal); W54.0XXA Bitten by dog, initial encounter
CPT/HCPCS: 99283

== ENCOUNTER 2019-02-06 16:58 | Inpatient (IN) | payer MEDICARE, OTHER, MEDICAID ==
[~2019-02-06] VITALS: Ht 157.5 cm; Wt 50.4 kg
[~2019-02-06 16:58] MED LIST changes: -OMEP20CA12 PO; +OMEP20CA13 PO
--- NOTE | 2019-02-06 17:12 | ED General ---
General Chief Complaint: General Problems/Pain Stated Complaint: WEAKNESS Nursing Triage Note: Patient reports falling 2 nights ago. States is having decreased appetite and generalized weakness Nursing Sepsis Screen: No Definite Risk Source of Information: Patient, Family Exam Limitations: No Limitations (SJ JENKINS MD) History of Present Illness Date Seen by Provider: Feb 06, 2019 Time Seen by Provider: 17:08 Initial Comments 83-year-old female presents with her family with a history of decreased appetite and generalized weakness that has been present throughout the day. The patient and her daughters deny associated fever, chill, chest pain, palpitations, vomiting or diarrhea, associated dysuria or frequency, or acute change in medications. The patient is in the care of Dr. Nico Marrero. The patient has had very poor appetite for the day and has essentially slept throughout the day. (SJ JENKINS MD) Allergies and Home Medications Allergies Coded Allergies: lisinopril (Verified Allergy, Mild, SWELLING, COULDN'T BREATHE, 01/12/16) Home Medications Amlodipine Besylate 5 Mg Tablet, 5 MG PO DAILY, (Reported) Aspirin/Caffeine 1 Each Tablet, 2 TAB PO DAILY, (Reported) Atorvastatin Calcium 40 Mg Tablet, 40 MG PO DAILY, (Reported) Escitalopram Oxalate 10 Mg Tablet, 10 MG PO DAILY, (Reported) Glipizide 5 Mg Tablet, 5 MG PO DAILY, (Reported) Guaifenesin/Dextromethorphan 1 Each Tablet, 1 TAB PO Q4H PRN for CONGESTION, (Reported) Ibuprofen 200 Mg Tablet, 400 MG PO Q6H PRN for PAIN-MILD, (Reported) Levothyroxine Sodium 100 Mcg Tablet, 100 MCG PO DAILY, (Reported) Loratadine 10 Mg Tablet, 10 MG PO DAILY PRN for ALLERGIES, (Reported) Melatonin 5 Mg Tablet, 5 MG PO HS, (Reported) Mupirocin 22 Gm Oint...g., TOP TID PRN for SORES, (Reported) Omeprazole 20 Mg Capsule.dr, 20 MG PO BID, (Reported) Sulfamethoxazole/Trimethoprim 1 Each Tablet, 1 TAB PO BID take for 8 days from 01/15 Prescribed by: ALEXANDRIA GOODMAN on 01/15/18 1303 Telmisartan 40 Mg Tablet, 40 MG PO DAILY, (Reported) Patient Home Medication List Home Medication List Reviewed: Yes (SJ JENKINS MD) Review of Systems Review of Systems Constitutional: No chills, No fever; weakness EENTM: No hearing loss, No vision loss Respiratory: No cough; short of breath Cardiovascular: No chest pain Gastrointestinal: No abdominal pain, No diarrhea, No nausea, No vomiting Genitourinary: No dysuria, No frequency : No Musculoskeletal: no symptoms reported Skin: no symptoms reported; No rash Psychiatric/Neurological: No Symptoms Reported Hematologic/Lymphatic: No Symptoms Reported Immunological/Allergic: no symptoms reported (SJ JENKINS MD) Past Alnsuny-Njggfq-Ccixpk Hx Past Med/Social Hx: Reviewed Nursing Past Med/Soc Hx (SJ JENKINS MD) Patient Social History Alcohol Use: Denies Use Recreational Drug Use: No Smoking Status: Never a Smoker 2nd Hand Smoke Exposure: No Recent Foreign Travel: No Contact w/Someone Who Travel: No Recent Infectious Disease Expo: No Recent Hopitalizations: Yes (SJ JENKINS MD) Immunizations Up To Date Tetanus Booster (TDap): Less than 5yrs Date of Pneumonia Vaccine: Mar 01, 2010 Date of Influenza Vaccine: Mar 01, 2015 (SJ JENKINS MD) Seasonal Allergies Seasonal Allergies: No (SJ JENKINS MD) Past Medical History Surgeries: Yes (SURGERY/PINS ON RODDY FEET, BRAIN SX-BEIGN TUMOR, crainiotomy) Hysterectomy, Oophorectomy, Orthopedic Respiratory: No Currently Using CPAP: No Currently Using BIPAP: No Cardiac: Yes High Cholesterol, Hypertension Neurological: Yes (Fall with head bleed) Brain Tumor, Dementia, Traumatic Brain Injury 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 Disorders: No Female 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 Disorders: Denies 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 Sexually Transmitted Disease: No HIV/AIDS: No Genitourinary: Yes Renal Failure, UTI-Chronic Gastrointestinal: Yes Gastroesophageal Reflux Musculoskeletal: Yes Arthritis Endocrine: Yes Hypothyroidsim, Diabetes, Non-Insulin dep HEENT: Yes Loss of Vision: Denies Hearing Impairment: Hard of Hearing Cancer: No Psychosocial: Yes (hallucinations, secondary to her dementia) Depression Integumentary: No Blood Disorders: No (SJ JENKINS MD) Family Medical History Cardiovascular disease DAUGHTER Diabetes mellitus DAUGHTER Respiratory disorder DAUGHTER Heart Disease, COPD (JS JENKINS MD) Physical Exam Vital Signs Vital Signs - First Documented 02/06/19 17:03 Temp 100.1 Pulse 111 Resp 20 B/P (MAP) 136/72 (93) Pulse Ox 92 O2 Delivery Room Air O2 Flow Rate 2.00 (HILDA BROUSSARD MD) Vital Signs Capillary Refill : Less Than 3 Seconds (SJ JENKINS MD) Height, Weight, BMI Height: 5'2.00" Weight: 115lbs. 0.0oz. [id number]; 22.3 BMI Method:Stated General Appearance: No Apparent Distress, Cachetic Eyes: Bilateral Eye Normal Inspection HEENT: Normal ENT Inspection Neck: Full Range of Motion, Non Tender, Supple Respiratory: Decreased Breath Sounds, Rales Cardiovascular: Regular Rate, Rhythm, No Murmur Gastrointestinal: Normal Bowel Sounds, No Pulsatile Mass Back: Normal Inspection Extremity: Normal Capillary Refill Neurologic/Psychiatric: Oriented x3, No Motor/Sensory Deficits (SJ JENKINS MD) Focused Exam Lactate Level 02/06/19 17:35: Lactic Acid Level 2.70*H 02/06/19 19:34: Lactic Acid Level 2.78*H (HILDA BROUSSARD MD) Lactic Acid Level Laboratory Tests Test 02/06/19 17:35 02/06/19 19:34 Lactic Acid Level 2.70 MMOL/L (0.50-2.00) *H 2.78 MMOL/L (0.50-2.00) *H (HILDA BROUSSARD MD) Progress/Results/Core Measures Suspected Sepsis Recent Fever Within 48 Hours: No Infection Criteria Present: None New/Unexplained Altered Menta: No Sepsis Screen: No Definite Risk SIRS Temperature:100.1 Pulse: 111 Respiratory Rate: 20 Laboratory Tests 02/06/19 17:05: White Blood Count 13.9H Blood Pressure 136 /72 Mean: 93 02/06/19 17:35: Laboratory Tests 02/06/19 17:05: Creatinine 1.58H, INR Comment 1.0, Platelet Count 234, Total Bilirubin 0.3 (SJ JENKINS MD) Results/Orders Lab Results Laboratory Tests Test 02/06/19 17:05 02/06/19 17:35 02/06/19 18:35 02/06/19 19:34 Range/Units White Blood Count 13.9 H 4.3-11.0 10^3/uL Red Blood Count 4.01 L 4.35-5.85 10^6/uL Hemoglobin 12.0 11.5-16.0 G/DL Hematocrit 35 35-52 % Mean Corpuscular Volume 88 80-99 FL Mean Corpuscular Hemoglobin 30 25-34 PG Mean Corpuscular Hemoglobin Concent 34 32-36 G/DL Red Cell Distribution Width 13.2 10.0-14.5 % Platelet Count 234 130-400 10^3/uL Mean Platelet Volume 10.7 H 7.4-10.4 FL Neutrophils (%) (Auto) 80 H 42-75 % Lymphocytes (%) (Auto) 11 L 12-44 % Monocytes (%) (Auto) 9 0-12 % Eosinophils (%) (Auto) 0 0-10 % Basophils (%) (Auto) 0 0-10 % Neutrophils # (Auto) 11.2 H 1.8-7.8 X 10^3 Lymphocytes # (Auto) 1.5 1.0-4.0 X 10^3 Monocytes # (Auto) 1.2 H 0.0-1.0 X 10^3 Eosinophils # (Auto) 0.0 0.0-0.3 10^3/uL Basophils # (Auto) 0.0 0.0-0.1 10^3/uL Prothrombin Time 13.2 12.2-14.7 SEC INR Comment 1.0 0.8-1.4 Activated Partial Thromboplast Time 28 24-35 SEC D-Dimer 4.72 H 0.00-0.49 UG/ML Sodium Level 139 135-145 MMOL/L Potassium Level 3.3 L 3.6-5.0 MMOL/L Chloride Level 104 98-107 MMOL/L Carbon Dioxide Level 19 L 21-32 MMOL/L Anion Gap 16 H 5-14 MMOL/L Blood Urea Nitrogen 25 H 7-18 MG/DL Creatinine 1.58 H 0.60-1.30 MG/DL Estimat Glomerular Filtration Rate 31 BUN/Creatinine Ratio 16 Glucose Level 285 H 70-105 MG/DL Calcium Level 9.6 8.5-10.1 MG/DL Corrected Calcium 9.7 8.5-10.1 MG/DL Magnesium Level 1.9 1.6-2.4 MG/DL Total Bilirubin 0.3 0.1-1.0 MG/DL Aspartate Amino Transf (AST/SGOT) 15 5-34 U/L Alanine Aminotransferase (ALT/SGPT) 11 0-55 U/L Alkaline Phosphatase 97 40-136 U/L Myoglobin 57.1 10.0-92.0 NG/ML Troponin I < 0.028 <0.028 NG/ML B-Type Natriuretic Peptide 135.9 H <100.0 PG/ML Total Protein 7.6 6.4-8.2 GM/DL Albumin 3.9 3.2-4.5 GM/DL Lactic Acid Level 2.70 *H 2.78 *H 0.50-2.00 MMOL/L Urine Color YELLOW Urine Clarity CLEAR Urine pH 5 5-9 Urine Specific Keymar 1.015 L 1.016-1.022 Urine Protein 2+ H NEGATIVE Urine Glucose (UA) NEGATIVE NEGATIVE Urine Ketones NEGATIVE NEGATIVE Urine Nitrite NEGATIVE NEGATIVE Urine Bilirubin NEGATIVE NEGATIVE Urine Urobilinogen NORMAL NORMAL MG/DL Urine Leukocyte Esterase 1+ H NEGATIVE Urine RBC (Auto) 3+ H NEGATIVE Urine RBC 0-2 /HPF Urine WBC 2-5 /HPF Urine Crystals PRESENT H /LPF Urine Amorphous Sediment MOD DINESH URATES H /LPF Urine Bacteria LARGE H /HPF Urine Casts PRESENT /LPF Urine Hyaline Casts >50 H /LPF Urine Mucus NEGATIVE /LPF Urine Culture Indicated YES (HILDA BROUSSARD MD) My Orders Orders - HILDA BROUSSARD MD Ua Culture If Indicated (02/06/19 18:15) Ct Chest Wo (02/06/19 18:32) Urine Culture (02/06/19 18:35) Ed Iv/Invasive Line Start (02/06/19 20:17) Lactated Ringers (Lr 1000 Ml Iv Solution (02/06/19 20:17) Enoxaparin Injection (Lovenox Injection) (02/06/19 20:30) (HILDA BROUSSARD MD) Medications Given in ED Current Medications Medications Dose Ordered Sig/Kevin Route Start Time Stop Time Status Last Admin Dose Admin Ceftriaxone Sodium 2000 mg/ Sterile Water 20 ml @ 240 mls/hr ONCE ONCE IV 02/06/19 17:30 02/06/19 17:34 DC 02/06/19 18:01 240 MLS/HR Lactated Ringer's 1,000 ml @ 0 mls/hr Q0M ONCE IV 02/06/19 20:17 02/06/19 20:18 DC 02/06/19 20:29 0 MLS/HR (HILDA BROUSSARD MD) Vital Signs/I&O 02/06/19 02/06/19 17:03 17:03 Temp 100.1 Pulse 111 Resp 20 B/P (MAP) 136/72 (93) Pulse Ox 92 O2 Delivery Room Air Nasal Cannula O2 Flow Rate 2.00 (HILDA BROUSSARD MD) Vital Signs/I&O Capillary Refill : Less Than 3 Seconds (SJ JENKINS MD) Blood Pressure Mean: 93 Progress Note : Time: 17:56 Progress Note Patient's d-dimer was nearly 5. A CTA of the chest was ordered. X My partner Dr. Broussard has been kind enough to take over the patient's care at shift change. (SJ JENKINS MD) Progress Note : Progress Note I assumed care for the patient from Dr. Jenkins. CTA of the chest was ordered and is pending. I have seen and evaluated the patient. She is here with 2 days of increasing weakness. She had a fall 2 nights ago and landed on her bedside table. She does complain of pain on her back. Chest x-ray did not demonstrate any rib fractures. D-dimer is elevated. On physical exam, she does have a moderate-sized bruise to the posterior chest to the right of midline and this is the area that she is tender at all on that rib margin. Her GFR is 31 which would prevent her from getting contrast. I do believe the elevated d-dimer is likely related to bruising although pulmonary embolism could not be excluded comp letely. She has had decreased urination of late. She does have history of frequent urinary tract infections. We will go ahead and get a catheter UA and evaluate for that. She apparently has had 2 g of Rocephin IV are ready but had blood cultures and lactic acid drawn before that. Lactic acid is elevated. Normal saline 1 L bolus is running now. New plan was discussed with patient and family who agree. Monitor patient. 2027: UA is suspicious for urinary tract infection. Lactate did remain elevated. She is off oxygen and not hypoxic. Heart rate remains about 100. I did discuss the case with Dr. Jones, [facility]call for [facility]. We will give a dose of Lovenox now and is admitting physician can reevaluate tomorrow for need for further evaluation to determine pulmonary embolism. I do believe the d-dimer is elevated from bruising but we still need to consider that this may be pulmonary embolism. If creatinine is improved tomorrow then CT angiogram and they considered versus nuc med scan versus nothing if she is improved. All this was discussed with the family who agrees. We will continue Rocephin IV pending cultures. Admit, inpatient status. Patient and family agree with plan. We will give another liter of fluid now and then keep her on normal saline at 75 an hour overnight. (HILDA BROUSSARD MD) Diagnostic Imaging Diagonstic Imaging: CT Plain Films/CT/US/NM/MRI: head Comments NAME: [facility] REC#: [id number] PT STATUS: REG ER : 1935 PHYSICIAN: SJ JENKINS MD ADMIT DATE: 02/06/19/ER Signed Date of Exam: 02/06/19 CT HEAD WO PROCEDURE: CT head without contrast. TECHNIQUE: Multiple contiguous axial images were obtained through the brain without the use of intravenous contrast. Auto Exposure Controls were utilized during the CT exam to meet ALARA standards for radiation dose reduction. INDICATION: Fall. Weakness. COMPARISON: Comparison is made with a previous examination from January 14, 2018. FINDINGS: Advanced calcifications throughout the brain are again demonstrated which include calcifications throughout the basal ganglia including the thalami as well as cortical calcifications throughout the cerebral hemispheres. There are stable calcifications within the erna and within the region of the dentate nuclei. There are no findings of acute hemorrhage. There is no mass effect or shift. There is no extra-axial fluid collection. There is no hydrocephalus. There is no territorial loss of marion-white differentiation. There are no findings of a calvarial abnormality. The mastoid appear clear. Orbital contents are unremarkable where visualized. IMPRESSION: 1. Stable CT appearance of the brain. There is advanced global volume loss with extensive intracranial calcifications as described. Given the extent of calcifications, this does not appear purely degenerative and likely relates to an underlying disorder of calcium homeostasis. This is, however, unchanged from prior exam. No acute intracranial abnormality is demonstrated. Dictated by: Dictated on workstation # [id number] Dict: 02/06/19 1738 Trans: 02/06/191751 Interpreted by: BJ LEMUS MD Electronically signed by: BJ LEMUS MD 02/06/191751 Diagonstic Imaging: Xray Plain Films/CT/US/NM/MRI: chest Comments NAME: [facility] REC#: [id number] PT STATUS: REG ER : 1935 PHYSICIAN: SJ JENKINS MD ADMIT DATE: 02/06/19/ER Signed Date of Exam: 02/06/19 CHEST 1 VIEW, AP/PA ONLY EXAMINATION: PA chest. INDICATION: Weakness. Recent fall. COMPARISON: Prior examination from 01/14/2018. FINDINGS: There are chronic interstitial changes present within the lungs. These are not appreciably changed. There are no findings of a new pleural collection or consolidation. There is no evidence of a pneumothorax. Heart size and mediastinal contours appear appropriate. There is no plain film evidence of an acute rib fracture. IMPRESSION: Stable radiographic appearance of the chest. No acute rib fracture evident. No pneumothorax evident. No pleural collection or pulmonary opacification to suggest contusion demonstrated. Dictated by: Dictated on workstation # [id number] Dict: 02/06/191737 Trans: 02/06/191751 Interpreted by: BJ LEMUS MD Electronically signed by: BJ LEMUS MD 02/06/191751 (HILDA BROUSSARD MD) Departure Communication (Admissions) Time/Spoke to Admitting Phy: 20:28 (HILDA BROUSSARD MD) Impression Primary Impression: Urinary tract infection Qualified Codes: N30.00 - Acute cystitis without hematuria Additional Impressions: Elevated lactic acid level Elevated d-dimer Chest wall contusion Qualified Codes: S20.211A - Contusion of right front wall of thorax, initial encounter Disposition: ADMITTED INPATIENT Condition: Stable Admissions Decision to Admit Reason: Admit from ER (General) Decision to Admit/Date: Feb 06, 2019 Time/Decision to Admit Time: 20:28 (HILDA BROUSSARD MD) Departure-Patient Inst. Referrals: NICO ANTONIO MD (PCP/Family) Primary Care Physician SJ JENKINS MD Feb 06, 2019 17:12 HILDA BROUSSARD MD Feb 06, 2019 18:46
[2019-02-06 17:17] LABS: BASOPHILS % (AUTO) 0 % (0-10); EOSINOPHILS % (AUTO) 0 % (0-10); HEMATOCRIT 35 % (35-52); LYMPHOCYTES # (AUTO) 1.5 X 10^3 (1.0-4.0); LYMPHOCYTES % (AUTO) 11 % (12-44); MEAN CORPUSCULAR HEMOGLOBIN 30 PG (25-34); MEAN CORPUSCULAR HGB CONC 34 G/DL (32-36); MEAN CORPUSCULAR VOLUME 88 FL (80-99); MEAN PLATELET VOLUME 10.7 FL (7.4-10.4); MONOCYTES # (AUTO) 1.2 X 10^3 (0.0-1.0); MONOCYTES % (AUTO) 9 % (0-12); NEUTROPHILS # (AUTO) 11.2 X 10^3 (1.8-7.8); NEUTROPHILS % (AUTO) 80 % (42-75); PLATELET COUNT 234 10^3/uL (130-400); RED CELL DISTRIBUTION WIDTH 13.2 % (10.0-14.5); WHITE BLOOD COUNT 13.9 10^3/uL (4.3-11.0)
[2019-02-06 17:30] LABS: PROTHROMBIN TIME PATIENT 13.2 SEC (12.2-14.7)
[2019-02-06] MEDS ORDERED: cefTRIAXone FOR IV USE 2,000 MG in WATER (STERILE) FOR INJECTION 20 ML IV ONE (17:30)
[2019-02-06 17:37] LABS: ALANINE AMINOTRANSFERASE 11 U/L (0-55); ALBUMIN 3.9 GM/DL (3.2-4.5); ALKALINE PHOSPHATASE 97 U/L (40-136); BILIRUBIN,TOTAL 0.3 MG/DL (0.1-1.0); BUN/CREATININE RATIO 16; CALCIUM 9.6 MG/DL (8.5-10.1); CARBON DIOXIDE 19 MMOL/L (21-32); CHLORIDE 104 MMOL/L (98-107); CREATININE SERUM 1.58 MG/DL (0.60-1.30); GFR ESTIMATED 31; GLUCOSE 285 MG/DL (70-105); MAGNESIUM 1.9 MG/DL (1.6-2.4); POTASSIUM 3.3 MMOL/L (3.6-5.0); SODIUM 139 MMOL/L (135-145); TOTAL PROTEIN 7.6 GM/DL (6.4-8.2)
--- NOTE | 2019-02-06 17:43 | Diagnostic Imaging Report ---
PROCEDURE: CT head without contrast. TECHNIQUE: Multiple contiguous axial images were obtained through the brain without the use of intravenous contrast. Auto Exposure Controls were utilized during the CT exam to meet ALARA standards for radiation dose reduction. INDICATION: Fall. Weakness. COMPARISON: Comparison is made with a previous examination from January 14, 2018. FINDINGS: Advanced calcifications throughout the brain are again demonstrated which include calcifications throughout the basal ganglia including the thalami as well as cortical calcifications throughout the cerebral hemispheres. There are stable calcifications within the erna and within the region of the dentate nuclei. There are no findings of acute hemorrhage. There is no mass effect or shift. There is no extra-axial fluid collection. There is no hydrocephalus. There is no territorial loss of marion-white differentiation. There are no findings of a calvarial abnormality. The mastoid appear clear. Orbital contents are unremarkable where visualized. IMPRESSION: 1. Stable CT appearance of the brain. There is advanced global volume loss with extensive intracranial calcifications as described. Given the extent of calcifications, this does not appear purely degenerative and likely relates to an underlying disorder of calcium homeostasis. This is, however, unchanged from prior exam. No acute intracranial abnormality is demonstrated. Dictated by: Dictated on workstation # [id number]
--- NOTE | 2019-02-06 17:47 | Diagnostic Imaging Report ---
EXAMINATION: PA chest. INDICATION: Weakness. Recent fall. COMPARISON: Prior examination from 01/14/2018. FINDINGS: There are chronic interstitial changes present within the lungs. These are not appreciably changed. There are no findings of a new pleural collection or consolidation. There is no evidence of a pneumothorax. Heart size and mediastinal contours appear appropriate. There is no plain film evidence of an acute rib fracture. IMPRESSION: Stable radiographic appearance of the chest. No acute rib fracture evident. No pneumothorax evident. No pleural collection or pulmonary opacification to suggest contusion demonstrated. Dictated by: Dictated on workstation # [id number]
[2019-02-06] MEDS: NS IV 1000 ML 1,000 ML IV SCH ×2 (18:01→22:33)
[2019-02-06 18:44] LABS: BILIRUBIN,URINE NEGATIVE (NEGATIVE); CLARITY,URINE CLEAR; COLOR,URINE YELLOW; GLUCOSE, URINE (UA) NEGATIVE (NEGATIVE); KETONES,URINE NEGATIVE (NEGATIVE); LEUKOCYTE ESTERASE ,URINE 1+ (NEGATIVE); NITRITE,URINE NEGATIVE (NEGATIVE); PH,URINE 5 (5-9); PROTEIN,URINE 2+ (NEGATIVE); UROBILINOGEN,URINE NORMAL (NORMAL)
[2019-02-06 18:52] LABS: AMORPHOUS SEDIMENT,UR MOD AMOR URATES /LPF; BACTERIA,URINE LARGE /HPF; HYALINE CASTS, URINE >50 /LPF; RBC,URINE 0-2 /HPF
--- NOTE | 2019-02-06 19:49 | Diagnostic Imaging Report ---
PROCEDURE: CT chest without contrast. TECHNIQUE: Multiple contiguous axial images were obtained through the chest without the use of intravenous contrast. Auto Exposure Controls were utilized during the CT exam to meet ALARA standards for radiation dose reduction. INDICATION: Recent fall. Decreased appetite and generalized weakness. FINDINGS: Lungs demonstrate no evidence of focal pulmonary infiltrate or consolidation. There is some minimal dependent atelectasis at the lung bases. There is no effusion or pleural collection. There are no findings of a pneumothorax. There is no pulmonary nodule or mass evident. The thoracic aorta demonstrates atherosclerotic calcification but is normal in caliber. Mildly prominent pretracheal mediastinal lymph nodes are present. The pulmonary arteries appear normal in size. There is no pericardial collection. The visualized portion of the upper abdomen demonstrates no acute process. No rib fractures are evident. There are multilevel degenerative endplate changes present within the thoracic spine but alignment appears maintained and there is no evidence of an acute spinal fracture. IMPRESSION: 1. Other than some minimal dependent atelectasis, the lungs appear clear. 2. No pulmonary nodule or mass. 3. Nonspecific mildly prominent mediastinal lymph nodes. 4. Atherosclerosis. 5. No evidence of rib fractures or thoracic spine fracture. 6. No acute upper abdominal abnormality. Dictated by: Dictated on workstation # [id number]
[2019-02-06] MEDS ORDERED: LACTATED RINGERS 1,000 ML IV ONE (20:17)
[2019-02-06] MEDS ORDERED: ENOXAPARIN 60 MG/0.6 ML (LOVENOX) SYR SC ONE (20:30)
[2019-02-06 21:10] VITALS: BP 145/91
[2019-02-06 21:15] VITALS: BP 145/61
[2019-02-06] MEDS ORDERED: ONDANSETRON 4 MG/2 ML (SDV) Z0FRAN IV PRN (21:30)
[2019-02-07] VITALS (7 sets, daily range): BP systolic 139–157; BP diastolic 59–80
[2019-02-07 03:46] LABS: BASOPHILS % (AUTO) 0 % (0-10); EOSINOPHILS # (AUTO) 0.1 10^3/uL (0.0-0.3); EOSINOPHILS % (AUTO) 1 % (0-10); HEMATOCRIT 32 % (35-52); HEMOGLOBIN 10.6 G/DL (11.5-16.0); LYMPHOCYTES # (AUTO) 1.7 X 10^3 (1.0-4.0); LYMPHOCYTES % (AUTO) 14 % (12-44); MEAN CORPUSCULAR HEMOGLOBIN 30 PG (25-34); MEAN CORPUSCULAR HGB CONC 34 G/DL (32-36); MEAN CORPUSCULAR VOLUME 88 FL (80-99); MEAN PLATELET VOLUME 11.1 FL (7.4-10.4); MONOCYTES # (AUTO) 1.1 X 10^3 (0.0-1.0); MONOCYTES % (AUTO) 9 % (0-12); NEUTROPHILS # (AUTO) 9.2 X 10^3 (1.8-7.8); NEUTROPHILS % (AUTO) 76 % (42-75); PLATELET COUNT 189 10^3/uL (130-400); WHITE BLOOD COUNT 12.1 10^3/uL (4.3-11.0)
[2019-02-07] MEDS: NS IV 1000 ML 1,000 ML IV SCH ×2 (04:11→12:28)
[2019-02-07 04:16] LABS: ALBUMIN 3.5 GM/DL (3.2-4.5); BILIRUBIN,TOTAL 0.4 MG/DL (0.1-1.0); CALCIUM 8.8 MG/DL (8.5-10.1); CHOLESTEROL 221 MG/DL (< 200); CREATININE SERUM 0.94 MG/DL (0.60-1.30); HDL CHOLESTEROL 43 MG/DL (40-60); POTASSIUM 2.9 MMOL/L (3.6-5.0); TOTAL PROTEIN 6.5 GM/DL (6.4-8.2); TRIGLYCERIDES 101 MG/DL (<150); VLDL CHOLESTEROL 20 MG/DL (5-40)
[2019-02-07] MEDS: inSUlin ASPART (NovoLOG) 1 UNIT/0.01 ML (CHARGE PER UNIT) SC SCH ×4 (05:20→19:44)
[2019-02-07] MEDS ORDERED: KCL 20 MEQ TAB (K-DUR) PO ONE ×2 (10:00→13:00)
[2019-02-07] MEDS ORDERED: BENZONATATE 100 MG (TESSALON) CAPSULE PO PRN (12:30)
--- NOTE | 2019-02-07 13:15 | NUR ---
REPORT TAKEN AT THIS TIME FROM Nataliia RODAS RN. THIS RN WILL ASSUME CARE OF THIS PATIENT WHEN SHE ARRIVES TO THE FORTH FLOOR.
--- NOTE | 2019-02-07 13:50 | NUR ---
pt transferred to room 432 via wc w/ staff/personal belongings. report given to chandrika monique, no questions/concerns voiced.
--- NOTE | 2019-02-07 13:50 | NUR ---
patient to floor at this time via cart accompanied by Nataliia Dove RN. THIS RN WILL ASSUME CARE OF THIS PATIENT THROUGHOUT THE REMAINDER OF THIS SHIFT.
[2019-02-07] MEDS ORDERED: RT-ALBUINH IH (14:43)
--- NOTE | 2019-02-07 14:43 | NUR ---
SPOKE TO PT AND HER FAMILY ( THEY BROUGHT IN HER BOTTLES) AND WENT THRU THE EXT MED HIS TO COMPLETE THE MED REC. THE BOTTLES WERE ALL OF GOOD DATING AND MATCHED THE MED REC. OTC MEDS: IBUPROFEN 200MG: UD MELATONIN 3M HS
--- NOTE | 2019-02-07 15:13 | NUR ---
Pastoral care visit.
[2019-02-07 17:37] LABS: BUN/CREATININE RATIO 15; CALCIUM 9.1 MG/DL (8.5-10.1); CARBON DIOXIDE 20 MMOL/L (21-32); CHLORIDE 109 MMOL/L (98-107); CREATININE SERUM 0.84 MG/DL (0.60-1.30); GFR ESTIMATED > 60; GLUCOSE 97 MG/DL (70-105); POTASSIUM 4.4 MMOL/L (3.6-5.0); SODIUM 140 MMOL/L (135-145)
[2019-02-07] MEDS: ACETAMINOPHEN 500 MG TAB (TYLENOL) PO PRN (19:45)
[2019-02-07] MEDS ORDERED: WATER (STERILE) FOR INJECTION 10 ML ONE (20:12)
[2019-02-07] MEDS ORDERED: cefTRIAXone 1,000 MG IV (ROCEPHIN) VIAL ONE (20:12)
[2019-02-07] MEDS: cefTRIAXone 1,000 MG/SWFI 10 ML IV PUSH IV SCH ×2 (20:23)
--- NOTE | 2019-02-07 20:56 | History & Physical ---
HPI History of Present Illness: 83 yo F that presented with weakness and falls. Found to have concerns for UTI upon arrival. States that she has been feeling weak for about 3-4 days prior to arriving. Denies any fever, chill, shortness of breath or chest pain. h/o HTN that seems to be well controlled on PO meds. Has had decreased PO intake and decreased UOP. Source: patient Exam Limitations: no limitations Date seen by provider: Feb 07, 2019 Time Seen by Provider: 09:45 Attending Physician Juan J Jones MD PCP Rickie Antonio MD Consult Date of Admission Feb 06, 2019 at 20:28 Home Medications Home Medications Reviewed patient Home Medication Reconciliation performed by pharmacy medication reconciliations transportation planning technician and/or nursing. Patients Allergies have been reviewed. Allergies Coded Allergies: lisinopril (Verified Allergy, Mild, SWELLING, COULDN'T BREATHE, 01/12/16) [id number] Hx Patient Social History Living Status: Lives home alone Alcohol Use: Denies Use Recreational Drug Use: No Smoking Status: Never a Smoker 2nd Hand Smoke Exposure: No Recent Foreign Travel: No Contact w/other who traveled: No Recent Hopitalizations: Yes Recent Infectious Disease Expo: No Immunizations Up To Date Tetanus Booster (TDap): Less than 5yrs Date of Pneumonia Vaccine: Mar 01, 2010 Date of Influenza Vaccine: Mar 01, 2015 Past Medical History HTN Family Medical History Significant Family History: Heart Disease, COPD Family History: Cardiovascular disease DAUGHTER Diabetes mellitus DAUGHTER Respiratory disorder DAUGHTER Review of Systems ([facility]) Constitutional: No chills, No fever; malaise, weakness EENTM: no symptoms reported; No mouth pain, No mouth swelling, No nose congestion, No nose pain, No throat pain, No throat swelling Respiratory: cough; No dyspnea on exertion, No short of breath Cardiovascular: no symptoms reported; No chest pain, No edema, No palpitations Gastrointestinal: abdominal pain; No constipation, No diarrhea; loss of appetite; No nausea, No vomiting Genitourinary: decreased output; No dysuria, No frequency, No hematuria Musculoskeletal: no symptoms reported; No back pain, No joint pain, No muscle pain Skin: no symptoms reported; No lesions, No rash Psychiatric/Neurological: No Symptoms Reported; Denies Headache, Denies Weakness Reviewed Test Results Reviewed Test Results Lab Laboratory Tests Test 9/9/19 02:58 02/07/19 10:08 02/07/19 10:59 02/07/19 15:35 Range/Units White Blood Count 12.1 H 4.3-11.0 10^3/uL Red Blood Count 3.57 L 4.35-5.85 10^6/uL Hemoglobin 10.6 L 11.5-16.0 G/DL Hematocrit 32 L 35-52 % Mean Corpuscular Volume 88 80-99 FL Mean Corpuscular Hemoglobin 30 25-34 PG Mean Corpuscular Hemoglobin Concent 34 32-36 G/DL Red Cell Distribution Width 13.0 10.0-14.5 % Platelet Count 189 130-400 10^3/uL Mean Platelet Volume 11.1 H 7.4-10.4 FL Neutrophils (%) (Auto) 76 H 42-75 % Lymphocytes (%) (Auto) 14 12-44 % Monocytes (%) (Auto) 9 0-12 % Eosinophils (%) (Auto) 1 0-10 % Basophils (%) (Auto) 0 0-10 % Neutrophils # (Auto) 9.2 H 1.8-7.8 X 10^3 Lymphocytes # (Auto) 1.7 1.0-4.0 X 10^3 Monocytes # (Auto) 1.1 H 0.0-1.0 X 10^3 Eosinophils # (Auto) 0.1 0.0-0.3 10^3/uL Basophils # (Auto) 0.0 0.0-0.1 10^3/uL Sodium Level 140 135-145 MMOL/L Potassium Level 2.9 L 3.6-5.0 MMOL/L Chloride Level 106 98-107 MMOL/L Carbon Dioxide Level 21 21-32 MMOL/L Anion Gap 13 5-14 MMOL/L Blood Urea Nitrogen 16 7-18 MG/DL Creatinine 0.94 0.60-1.30 MG/DL Estimat Glomerular Filtration Rate 57 BUN/Creatinine Ratio 17 Glucose Level 163 H 70-105 MG/DL Calcium Level 8.8 8.5-10.1 MG/DL Corrected Calcium 9.2 8.5-10.1 MG/DL Total Bilirubin 0.4 0.1-1.0 MG/DL Aspartate Amino Transf (AST/SGOT) 14 5-34 U/L Alanine Aminotransferase (ALT/SGPT) 7 0-55 U/L Alkaline Phosphatase 73 40-136 U/L Total Protein 6.5 6.4-8.2 GM/DL Albumin 3.5 3.2-4.5 GM/DL Triglycerides Level 101 <150 MG/DL Cholesterol Level 221 H < 200 MG/DL LDL Cholesterol Direct 164 H 1-129 MG/DL VLDL Cholesterol 20 5-40 MG/DL HDL Cholesterol 43 40-60 MG/DL Glucometer 206 H 96 70-110 MG/DL Lactic Acid Level 1.34 0.50-2.00 MMOL/L Test 02/07/19 17:17 02/07/19 19:43 Range/Units Sodium Level 140 135-145 MMOL/L Potassium Level 4.4 3.6-5.0 MMOL/L Chloride Level 109 H 98-107 MMOL/L Carbon Dioxide Level 20 L 21-32 MMOL/L Anion Gap 11 5-14 MMOL/L Blood Urea Nitrogen 13 7-18 MG/DL Creatinine 0.84 0.60-1.30 MG/DL Estimat Glomerular Filtration Rate > 60 BUN/Creatinine Ratio 15 Glucose Level 97 70-105 MG/DL Calcium Level 9.1 8.5-10.1 MG/DL Glucometer 140 H 70-110 MG/DL Physical Exam-([facility]) Physical Exam Vital Signs VS - Last 72 Hours, by Label 02/06/19 02/06/19 02/06/19 02/06/19 17:03 17:03 20:54 21:10 Temp 37.90687 37.03061 36.01759 Pulse 111 102 106 Resp 20 18 20 B/P (MAP) 136/72 (93) 143/62 (89) 145/91 Pulse Ox 92 95 92 O2 Delivery Room Air Nasal Cannula Room Air O2 Flow Rate 2.00 02/06/19 02/06/19 02/06/19 02/07/19 21:15 21:30 22:04 00:00 Pulse 103 B/P (MAP) 145/61 (89) Pulse Ox 87 93 O2 Delivery Room Air Nasal Cannula Nasal Cannula Nasal Cannula O2 Flow Rate 1.00 1.00 1.00 02/07/19 02/07/19 02/07/19 02/07/19 00:04 04:55 07:41 08:32 Temp 37.80223 37.23868 37.90010 Pulse 105 92 94 Resp 20 22 16 B/P (MAP) 143/60 (87) 141/66 (91) 144/80 (101) Pulse Ox 94 93 O2 Delivery Nasal Cannula Nasal Cannula Room Air O2 Flow Rate 1.00 1.00 02/07/19 02/07/19 02/07/19 02/07/19 08:36 11:50 11:50 13:50 Temp 36.20756 37.8 Pulse 85 94 Resp 14 18 B/P (MAP) 139/59 (85) 157/69 Pulse Ox 93 92 90 O2 Delivery Room Air Room Air Room Air 02/07/19 02/07/19 02/07/19 02/07/19 13:52 16:00 20:00 20:07 Temp 37.8 37.9 Pulse 92 96 Resp 20 22 B/P (MAP) 154/67 143/63 Pulse Ox 92 94 92 O2 Delivery Nasal Cannula Nasal Cannula Nasal Cannula Nasal Cannula O2 Flow Rate 1.00 1.00 2.00 1.00 Capillary Refill : Less Than 3 Seconds General Appearance: WD/WN, no apparent distress, thin Neck: non-tender, full range of motion, supple Respiratory: chest non-tender, lungs clear, normal breath sounds, no respiratory distress, no accessory muscle use Cardiovascular: normal peripheral pulses, regular rate, rhythm, no edema, no murmur Gastrointestinal: normal bowel sounds, soft, tenderness (suprapubic ttp) Back: no CVA tenderness, no vertebral tenderness Extremities: normal range of motion, non-tender, normal inspection, no pedal edema, no calf tenderness, normal capillary refill 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, no motor/sensory deficits, alert, normal mood/affect, oriented x 3 Skin: normal color, warm/dry Lymphatic: no adenopathy Assessment/Plan Assessment/Plan Admission Status: Inpatient Order (span 2 midnights) Reason for Inpatient Admission: Needs IV fluids and IV antibiotics (1) Urinary tract infection Status: Acute Assessment & Plan: - culture pending, Continue rocephin Qualifiers: Qualified Codes: N10 - Acute pyelonephritis (2) Elevated lactic acid level Status: Resolved (3) Elevated d-dimer Status: Acute Assessment & Plan: - CTA pending (4) Fall Status: Acute Assessment & Plan: - PT/OT Qualifiers: Qualified Codes: W19.XXXA - Unspecified fall, initial encounter (5) DVT prophylaxis Status: Acute Assessment & Plan: - lovenox Clinical Quality Measures DVT/VTE Risk/Contraindication: Risk Factor Score Per Nursin RFS Level Per Nursing on Admit: 4+=Very High Copy Copies To 1: RICKIE ANTONIO MD, HOLLY R MD Feb 07, 2019 20:56
[2019-02-07] MEDS ORDERED: OMEPRAZOLE 20 MG (PriLOSEC) CAP NON-FORMULARY PO SCH (21:00)
[2019-02-08] VITALS (7 sets, daily range): BP systolic 150–182; BP diastolic 63–79
[2019-02-08] MEDS: inSUlin ASPART (NovoLOG) 1 UNIT/0.01 ML (CHARGE PER UNIT) SC SCH ×4 (05:12→21:17)
[2019-02-08 06:02] LABS: BASOPHILS # (AUTO) 0.1 10^3/uL (0.0-0.1); BASOPHILS % (AUTO) 0 % (0-10); EOSINOPHILS # (AUTO) 0.3 10^3/uL (0.0-0.3); EOSINOPHILS % (AUTO) 2 % (0-10); HEMATOCRIT 34 % (35-52); HEMOGLOBIN 11.2 G/DL (11.5-16.0); LYMPHOCYTES # (AUTO) 1.7 X 10^3 (1.0-4.0); LYMPHOCYTES % (AUTO) 13 % (12-44); MEAN CORPUSCULAR HEMOGLOBIN 29 PG (25-34); MEAN CORPUSCULAR HGB CONC 33 G/DL (32-36); MEAN CORPUSCULAR VOLUME 89 FL (80-99); MEAN PLATELET VOLUME 10.6 FL (7.4-10.4); MONOCYTES # (AUTO) 1.2 X 10^3 (0.0-1.0); MONOCYTES % (AUTO) 9 % (0-12); NEUTROPHILS # (AUTO) 9.7 X 10^3 (1.8-7.8); NEUTROPHILS % (AUTO) 75 % (42-75); PLATELET COUNT 238 10^3/uL (130-400); RED CELL DISTRIBUTION WIDTH 13.2 % (10.0-14.5); WHITE BLOOD COUNT 12.9 10^3/uL (4.3-11.0)
[2019-02-08 06:24] LABS: BUN/CREATININE RATIO 14; CALCIUM 9.4 MG/DL (8.5-10.1); CARBON DIOXIDE 21 MMOL/L (21-32); CHLORIDE 108 MMOL/L (98-107); CREATININE SERUM 0.79 MG/DL (0.60-1.30); GFR ESTIMATED > 60; GLUCOSE 98 MG/DL (70-105); POTASSIUM 3.9 MMOL/L (3.6-5.0); SODIUM 141 MMOL/L (135-145)
[2019-02-08] MEDS ORDERED: NON-FORMULARY MEDICATION 1 EA EA (Amlodipine Besylate 5 MG) PO SCH (09:00)
[2019-02-08] MEDS ORDERED: NON-FORMULARY MEDICATION 1 EA EA (Escitalopram Oxalate 10 MG) PO SCH (09:00)
[2019-02-08] MEDS: PANTOPRAZOLE 40 MG (PROTONIX) TAB PO SCH (09:46)
[2019-02-08] MEDS: amLODIPine 5 MG (NORVASC) TAB PO SCH (09:46)
[2019-02-08] MEDS: LEVOTHYROXINE 100 MCG (LEVOTHROID) TAB PO SCH (09:46)
--- NOTE | 2019-02-08 09:47 | NUR ---
prior to a.m. medication pulse was 98 and b/p was 182/79.
[2019-02-08] MEDS ORDERED: RT-ALBUTEROL SULF 2.5 MG/3 ML PRE-MIX VIAL INH PRN (14:15)
[2019-02-08] MEDS: RT-ALBUTEROL SULF 2.5 MG/3 ML PRE-MIX VIAL INH SCH ×2 (14:50→21:46)
[2019-02-08] MEDS: ACETAMINOPHEN 500 MG TAB (TYLENOL) PO PRN (18:11)
--- NOTE | 2019-02-08 18:39 | Progress Note ---
Subjective Subjective/Events-last exam Patient having shortness of breath this AM. States that she has not had treatment this AM. Tolerating PO diet. Review of Systems Pulmonary: Dyspnea, Cough Cardiovascular: No: Chest Pain, Palpitations Gastrointestinal: No: Nausea, Vomiting, Abdominal Pain, Diarrhea, Constipation Neurological: Weakness Focused Exam Lactate Level 02/06/19 17:35: Lactic Acid Level 2.70*H 02/06/19 19:34: Lactic Acid Level 2.78*H 02/07/19 10:59: Lactic Acid Level 1.34 Objective Exam Last Set of Vital Signs Vital Signs Date Time Temp Pulse Resp B/P (MAP) Pulse Ox O2 Delivery O2 Flow Rate FiO2 02/08/19 15:50 36.9 89 18 167/73 92 Room Air 02/08/19 14:50 2.00 Capillary Refill : Less Than 3 Seconds I&O Intake and Output 02/08/19 00:00 Intake Total 1740 ml Output Total 900 ml Balance 840 ml Intake Oral 740 ml IV Total 1000 ml Output Urine Total 800 ml Urine/Stool Mix 100 ml # Voids 3 # Bowel Movements 1 General: Alert, Oriented X3, Cooperative, Mild Distress Lungs: Clear to Auscultation, Other (mild increased work of breathing.) Heart: Regular Rate, No Murmurs Abdomen: Normal Bowel Sounds, Soft, No Tenderness, No Masses Extremities: No Edema, No Tenderness/Swelling Skin: No Rashes, No Breakdown Neuro: Normal Speech, Sensation Intact, Cranial Nerves 3-12 NL Results/Procedures Lab Laboratory Tests 02/07/19 19:43: Glucometer 140H 02/08/19 05:11: Glucometer 101 02/08/19 05:25: White Blood Count 12.9H, Red Blood Count 3.86L, Hemoglobin 11.2L, Hematocrit 34L , Mean Corpuscular Volume 89, Mean Corpuscular Hemoglobin 29, Mean Corpuscular Hemoglobin Concent 33, Red Cell Distribution Width 13.2, Platelet Count 238, Mean Platelet Volume 10.6H, Neutrophils (%) (Auto) 75, Lymphocytes (%) (Auto) 13, Monocytes (%) (Auto) 9, Eosinophils (%) (Auto) 2, Basophils (%) (Auto) 0, Neutrophils # (Auto) 9.7H, Lymphocytes # (Auto) 1.7, Monocytes # (Auto) 1.2H, Eosinophils # (Auto) 0.3, Basophils # (Auto) 0.1, Sodium Level 141, Potassium Level 3.9, Chloride Level 108H, Carbon Dioxide Level 21, Anion Gap 12, Blood Urea Nitrogen 11, Creatinine 0.79, Estimat Glomerular Filtration Rate > 60, BUN/Creatinine Ratio 14, Glucose Level 98, Calcium Level 9.4 02/08/19 13:06: Glucometer 181H 02/08/19 16:17: Glucometer 153H Microbiology 02/06/19 Blood Culture - Preliminary, Resulted No growth 02/06/19 Urine Culture - Final, Complete NO GROWTH Assessment/Plan Assessment/Plan (1) Urinary tract infection Status: Acute Assessment & Plan: - culture pending, Continue rocephin 02/08: Culture NGTD, continue rocephin at this time Qualifiers: Qualified Codes: N10 - Acute pyelonephritis (2) Shortness of breath Status: Acute Assessment & Plan: 02/08: Review of CT does not show sign of PE, MAT protocol ordered, PT ordered (3) Elevated lactic acid level Status: Resolved (4) Elevated d-dimer Status: Acute Assessment & Plan: - CTA pending 02/08: No evidence of PE (5) Fall Status: Acute Assessment & Plan: - PT/OT Qualifiers: Qualified Codes: W19.XXXA - Unspecified fall, initial encounter (6) DVT prophylaxis Status: Acute Assessment & Plan: - lovenox Clinical Quality Measures DVT/VTE Risk/Contraindication: Risk Factor Score Per Nursin RFS Level Per Nursing on Admit: 4+=Very High JACKIE ZAMAN MD Feb 08, 2019 18:39
[2019-02-08] MEDS: ENOXAPARIN 40 MG/0.4 ML (LOVENOX) SYR SQ SCH (19:03)
[2019-02-08] MEDS ORDERED: cefTRIAXone 1,000 MG IV (ROCEPHIN) VIAL ONE (21:18)
[2019-02-08] MEDS ORDERED: WATER (STERILE) FOR INJECTION 10 ML ONE (21:18)
[2019-02-08] MEDS: cefTRIAXone 1,000 MG/SWFI 10 ML IV PUSH IV SCH ×2 (21:30)
[2019-02-09] VITALS: BP 143/68
[2019-02-09] MEDS: ACETAMINOPHEN 500 MG TAB (TYLENOL) PO PRN (02:59)
[2019-02-09 04:00] VITALS: BP 169/75
[2019-02-09 05:02] LABS: BASOPHILS # (AUTO) 0.1 10^3/uL (0.0-0.1); BASOPHILS % (AUTO) 1 % (0-10); EOSINOPHILS # (AUTO) 0.3 10^3/uL (0.0-0.3); EOSINOPHILS % (AUTO) 3 % (0-10); HEMATOCRIT 34 % (35-52); HEMOGLOBIN 11.3 G/DL (11.5-16.0); LYMPHOCYTES # (AUTO) 2.4 X 10^3 (1.0-4.0); LYMPHOCYTES % (AUTO) 20 % (12-44); MEAN CORPUSCULAR HEMOGLOBIN 30 PG (25-34); MEAN CORPUSCULAR HGB CONC 34 G/DL (32-36); MEAN CORPUSCULAR VOLUME 88 FL (80-99); MEAN PLATELET VOLUME 10.2 FL (7.4-10.4); MONOCYTES # (AUTO) 1.2 X 10^3 (0.0-1.0); MONOCYTES % (AUTO) 10 % (0-12); NEUTROPHILS # (AUTO) 7.9 X 10^3 (1.8-7.8); NEUTROPHILS % (AUTO) 66 % (42-75); PLATELET COUNT 250 10^3/uL (130-400); RED CELL DISTRIBUTION WIDTH 12.9 % (10.0-14.5); WHITE BLOOD COUNT 11.9 10^3/uL (4.3-11.0)
[2019-02-09 05:18] LABS: BUN/CREATININE RATIO 18; CALCIUM 9.4 MG/DL (8.5-10.1); CARBON DIOXIDE 22 MMOL/L (21-32); CHLORIDE 105 MMOL/L (98-107); GFR ESTIMATED > 60; GLUCOSE 118 MG/DL (70-105); POTASSIUM 3.8 MMOL/L (3.6-5.0); SODIUM 138 MMOL/L (135-145)
[2019-02-09] MEDS: inSUlin ASPART (NovoLOG) 1 UNIT/0.01 ML (CHARGE PER UNIT) SC SCH ×4 (05:38→21:43)
[2019-02-09] MEDS: RT-ALBUTEROL SULF 2.5 MG/3 ML PRE-MIX VIAL INH SCH ×4 (06:57→19:14)
[2019-02-09 08:00] VITALS: BP 179/78
[2019-02-09] MEDS: amLODIPine 5 MG (NORVASC) TAB PO SCH (08:50)
[2019-02-09] MEDS: LEVOTHYROXINE 100 MCG (LEVOTHROID) TAB PO SCH (08:50)
[2019-02-09] MEDS: PANTOPRAZOLE 40 MG (PROTONIX) TAB PO SCH (08:50)
--- NOTE | 2019-02-09 09:13 | Physical Therapy Evaluation ---
PT Evaluation-General Medical Diagnosis Admission Date Feb 06, 2019 at 20:28 Medical Diagnosis: weakness, falls Onset Date: Feb 06, 2019 Therapy Diagnosis Therapy Diagnosis: impaired mobility, strength, endurance, balance Height/Weight Height (Feet): 5 Height (Inches): 2.00 Weight (Pounds): 111 Weight (Ounces): 3.0 Precautions Precautions/Isolations: Fall Prevention, Standard Precautions, Pressure Ulcer Weight Bear Status Right Lower Extremity: Right Weight Bearing/Tolerated Left Lower Extremity: Left Weight Bearing/Tolerated Referral Physician: Sylvia Yates MD Reason for Referral: Evaluation/Treatment Medical History Additional Medical History Past Medical History Surgeries: Yes (SURGERY/PINS ON RODDY FEET, BRAIN SX-BEIGN TUMOR, crainiotomy) Hysterectomy, Oophorectomy, Orthopedic Respiratory: No Currently Using CPAP: No Currently Using BIPAP: No Cardiac: Yes High Cholesterol, Hypertension Neurological: Yes (Fall with head bleed) Brain Tumor, Dementia, Traumatic Brain Injury 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 Disorders: No Female 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 Disorders: Denies 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 Sexually Transmitted Disease: No HIV/AIDS: No Genitourinary: Yes Renal Failure, UTI-Chronic Gastrointestinal: Yes Gastroesophageal Reflux Musculoskeletal: Yes Arthritis Endocrine: Yes Hypothyroidsim, Diabetes, Non-Insulin dep HEENT: Yes Loss of Vision: Denies Hearing Impairment: Hard of Hearing Cancer: No Psychosocial: Yes (hallucinations, secondary to her dementia) Depression Integumentary: No Blood Disorders: No Reviewed History: Yes Social History patient is unable to give an accurate history of this Prior/Core FIM Prior Level of Function Therapy Code Descriptions/Definitions Functional [place] Measure: 0=Not Assessed/NA 4=Minimal Assistance 1=Total Assistance 5=Supervision or Setup 2=Maximal Assistance 6=Modified [place] 3=Moderate Assistance 7=Complete [place] Therapy Quality Codes: 6 Independent with activity with or without an assistive device 5 Patient requires set up or clean up by helper. Patient completes activity by themselves 4 Supervision or touching assist (CGA). [place] provide cues , steadying assist 3 The helper provides less than half the effort to complete the activity 2 The helper provides more than half the effort to complete the activity 1 Dependent. The helper does all the effort to complete an activity 7 Patient refused to complete or attempt activity 9 The patient did not perform the activity before the current illness or injury 88 Not attempted due to Medical conditions or safety concerns Functional Abilities and Goals: Independent: Patient completed the activities by him/herself, with or without an assistive device, with no assistance from a helper. Needed Some Help: Patient needed partial assistance from another person to complete activities. Dependent: A helper completed the activities for the patient. Unknown: Not Applicable: patient states she does not use a walker at home PT Evaluation-Current Subjective Patient in bed pre tx, agrees to PT, has no complaints of pain at rest. Pt/Family Goals none stated Objective Patient Orientation: Person, Confused Attachments: Oxygen 3L of O2 nasal canula ROM/Strength ROM Lower Extremities WNL Strength Lower Extremities 4/5 gross BLE Sensory Hearing: Impaired Sensation Lower Extremities unable to test sensation accurately Transfers Therapy Code Descriptions/Definitions Functional [place] Measure: 0=Not Assessed/NA 4=Minimal Assistance 1=Total Assistance 5=Supervision or Setup 2=Maximal Assistance 6=Modified [place] 3=Moderate Assistance 7=Complete [place] Transfers (B, C, W/C) (FIM): 4 Scootin Rollin Supine to/from Sit: 5 Sit to/from Stand: 4 min assist for scooting to edge of bed, CGA for standing Gait Mode of Locomotion: Walk Anticipated Mode of Locomotion: Walk Gait (FIM): 4 Distance: 150' Gait Level of Assist: 4 Gait Persons Needed: 1 Gait Assistive Device: Handheld Assist Comments/Gait Description Unsteady especially with turning, one LOB that needed therapist assist, needs walker, patient wanted to try to ambulate without walker the first time. Balance Sitting Static: Good Sitting Dynamic: Good Standing Static: Poor Standing Dynamic: Poor Treatment seated BLE exercises x15 (AP, LAQ) Assessment/Needs Patient has impaired mobility, strength, endurance, balance. Patient in bed post tx with nurse call, phone, tray, bed alarm on. Rehab Potential: Fair PT Short Term Goals Short Term Goals Time Frame: Feb 16, 2019 Transfers (B,C,W/C) (FIM): 5 Gait (FIM): 5 Gait Distance Comment: 200' Gait Level of Assist: 5 Gait Assistive Device: FWW PT Plan Problem List Problem List: Activity Tolerance, Functional Strength, Safety, Balance, Gait, Transfer, Bed Mobility Treatment/Plan Treatment Plan: Continue Plan of Care Treatment Plan: Bed Mobility, Education, Functional Activity [place], Functional Strength, Gait, Safety, Therapeutic Exercise, Transfers Treatment Duration: Feb 16, 2019 Frequency: 6 times per week Estimated Hrs Per Day: .25 hour per day Patient and/or Family Agrees t: Yes Safety Risks/Education Patient Education: Gait Training, Transfer Techniques, Correct Positioning, Safety Issues Teaching Recipient: Patient Teaching Methods: Demonstration, Discussion Response to Teaching: Reinforcement Needed Discharge Recommendations Plan Patient will perform bed mobility and transfer training, balance and endurance training, functional strengthening, stair training, gait training, and education, to improve functional mobility and independence at home. Therapy Discharge Recommendati: 24 Hour Supervision Time/GCodes Time In: 0845 Time Out: 0900 Total Billed Treatment Time: 15 Total Billed Treatment 1 visit JENN 15' NASH COHN PT Feb 09, 2019 09:13
[2019-02-09] MEDS ORDERED: AZITHROMYCIN 250 MG TAB (ZITHROMAX) PO NR (09:30)
[2019-02-09] MEDS ORDERED: NS 100 ML (IVPB) BAG IV ONE (09:30)
[2019-02-09] MEDS ORDERED: IOHEXOL 350 MG/ML 100 ML (OMNIPAQUE 350) VIAL IV ONE (09:30)
[2019-02-09] MEDS ORDERED: HOLD METFORMIN - RECEIVED CONTRAST 20 ML VIAL IV SCH (09:30)
--- NOTE | 2019-02-09 11:49 | NUR ---
CM/SS spoke with the patient. She stated that she is from home with her daughter (Svetlana) and that she planned to return there. Attempted to call Svetlana at [phone], number unable to accept calls at this time. Will continue to follow and assist with discharge planning.
[2019-02-09 12:00] VITALS: BP 157/69
--- NOTE | 2019-02-09 12:25 | Diagnostic Imaging Report ---
PROCEDURE: CT angiography of the chest with contrast. TECHNIQUE: Multiple contiguous axial images were obtained through the chest after uneventful bolus administration of intravenous contrast. 3D reconstructed CTA MIP acquisitions were also performed. Auto Exposure Controls were utilized during the CT exam to meet ALARA standards for radiation dose reduction. INDICATION: Shortness of air and possible pulmonary embolism. COMPARISON: Correlation is made with a noncontrast CT chest from 02/06/2019. FINDINGS: Evaluation of the pulmonary arterial system is without evidence of thromboembolism. No filling defects are seen within central, lobar, or segmental branches. The thoracic aorta is of normal caliber. No dissection is seen. No pericardial fluid is identified. The patient has developed a trace left pleural effusion since the CT study of 3 days earlier. A small nodule in the right upper lobe posteriorly is seen measuring 4 mm in size, indeterminate. There has been development of parenchymal consolidation in the posterior left lower lobe since the recent CT. There is some consolidation in the right lower lobe as well but to a lesser degree. No axillary lymphadenopathy is identified. Nodes in the mediastinum are again seen. There is fullness in the subcarinal region measuring 2.9 x 1.9 cm. A pretracheal node measures 1.4 cm. No hilar lymphadenopathy is detected. IMPRESSION: 1. No evidence of pulmonary embolism or thoracic aortic dissection. 2. Development of a trace left pleural effusion as well as bibasilar pulmonary infiltrates since the examination from 3 days earlier. There is also mediastinal lymphadenopathy present, indeterminate. A followup CT chest after a course of therapy is recommended to confirm clearing. 3. Right upper lobe 4 mm pulmonary nodule. Followup in 6-12 months is recommended to confirm stability. Dictated by: Dictated on workstation # [id number]
[2019-02-09] MEDS: predniSONE 20 MG TAB PO SCH (12:31)
--- NOTE | 2019-02-09 14:47 | Progress Note ---
Subjective Subjective/Events-last exam Still having some shortness of breath but improved since yesterday. Following commands. Tolerating PO diet. Working with PT. Review of Systems Pulmonary: Dyspnea, Cough Cardiovascular: No: Chest Pain, Palpitations Neurological: Weakness Focused Exam Lactate Level 02/06/19 17:35: Lactic Acid Level 2.70*H 02/06/19 19:34: Lactic Acid Level 2.78*H 02/07/19 10:59: Lactic Acid Level 1.34 Objective Exam Last Set of Vital Signs Vital Signs Date Time Temp Pulse Resp B/P (MAP) Pulse Ox O2 Delivery O2 Flow Rate FiO2 02/09/19 12:00 36.8 89 18 157/69 96 Nasal Cannula 2.00 Capillary Refill : Less Than 3 Seconds I&O Intake and Output 02/09/19 00:00 Intake Total 1270 ml Output Total 740 ml Balance 530 ml Intake Oral 1270 ml Output Urine Total 740 ml # Bowel Movements 2 General: Alert, Cooperative, Mild Distress Lungs: Other (diminished breath sounds, increased work of breathing with minimal activity and at rest) Heart: Regular Rate, No Murmurs Abdomen: Normal Bowel Sounds, Soft, No Tenderness Extremities: No Edema, No Tenderness/Swelling Neuro: Normal Speech Results/Procedures Lab Laboratory Tests 02/08/19 16:17: Glucometer 153H 02/08/19 20:03: Glucometer 140H 02/09/19 04:45: White Blood Count 11.9H, Red Blood Count 3.80L, Hemoglobin 11.3L, Hematocrit 34L , Mean Corpuscular Volume 88, Mean Corpuscular Hemoglobin 30, Mean Corpuscular Hemoglobin Concent 34, Red Cell Distribution Width 12.9, Platelet Count 250, Mean Platelet Volume 10.2, Neutrophils (%) (Auto) 66, Lymphocytes (%) (Auto) 20, Monocytes (%) (Auto) 10, Eosinophils (%) (Auto) 3, Basophils (%) (Auto) 1, Neutrophils # (Auto) 7.9H, Lymphocytes # (Auto) 2.4, Monocytes # (Auto) 1.2H, Eosinophils # (Auto) 0.3, Basophils # (Auto) 0.1, Sodium Level 138, Potassium Level 3.8, Chloride Level 105, Carbon Dioxide Level 22, Anion Gap 11, Blood Urea Nitrogen 14, Creatinine 0.80, Estimat Glomerular Filtration Rate > 60, BUN/Creatinine Ratio 18, Glucose Level 118H, Calcium Level 9.4 02/09/19 10:54: Glucometer 119H Microbiology 02/06/19 Blood Culture - Preliminary, Resulted No growth 02/06/19 Urine Culture - Final, Complete NO GROWTH Assessment/Plan Assessment/Plan (1) CAP (community acquired pneumonia) Status: Acute Assessment & Plan: 02/09: Rocephin and Azithromycin and steroids added today, MAT protocol, BNP pending Qualifiers: Qualified Codes: J18.9 - Pneumonia, unspecified organism (2) Right upper lobe pulmonary nodule Status: Acute Assessment & Plan: 02/09: Incidental finding, will need f.u 6-12 months (3) Urinary tract infection Status: Acute Assessment & Plan: - culture pending, Continue rocephin 02/08: Culture NGTD, continue rocephin at this time 02/09: Completed treatment for possible UTI, will continue Rocephin at this time for PNA Qualifiers: Qualified Codes: N10 - Acute pyelonephritis (4) Shortness of breath Status: Acute Assessment & Plan: 02/08: Review of CT does not show sign of PE, MAT protocol ordered, PT ordered 02/09: CTA ordered today, neg for PE, New pleural effusion on the left and new consolidations, will treat for PNA, IS, steroids (5) Elevated lactic acid level Status: Resolved (6) Elevated d-dimer Status: Acute Assessment & Plan: - CTA pending 02/08: No evidence of PE (7) Fall Status: Acute Assessment & Plan: - PT/OT Qualifiers: Qualified Codes: W19.XXXA - Unspecified fall, initial encounter (8) DVT prophylaxis Status: Acute Assessment & Plan: - lovenox Clinical Quality Measures DVT/VTE Risk/Contraindication: Risk Factor Score Per Nursin RFS Level Per Nursing on Admit: 4+=Very High JACKIE ZAMAN MD Feb 09, 2019 14:47
--- NOTE | 2019-02-09 16:00 | NUR ---
Received report from ERICK Arora. 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 This RN assumes care at this time.
[2019-02-09 16:40] VITALS: BP 136/63
[2019-02-09] MEDS: ENOXAPARIN 40 MG/0.4 ML (LOVENOX) SYR SQ SCH (18:07)
[2019-02-09] MEDS ORDERED: WATER (STERILE) FOR INJECTION 10 ML ONE (20:01)
[2019-02-09] MEDS ORDERED: cefTRIAXone 1,000 MG IV (ROCEPHIN) VIAL ONE (20:01)
[2019-02-09 20:43] VITALS: BP 127/60
[2019-02-09] MEDS: cefTRIAXone 1,000 MG/SWFI 10 ML IV PUSH IV SCH ×2 (20:50)
--- NOTE | 2019-02-09 21:15 | NUR ---
Dr. Yates notified of glucose level at 460 mg/dl. Instructed to give top of sliding scale which is 9 units NovoLog SQ.
[2019-02-10 00:45] VITALS: BP 140/64
[2019-02-10 04:00] VITALS: BP 131/90
[2019-02-10 05:59] LABS: BASOPHILS % (AUTO) 0 % (0-10); EOSINOPHILS % (AUTO) 0 % (0-10); HEMATOCRIT 33 % (35-52); LYMPHOCYTES % (AUTO) 19 % (12-44); MEAN CORPUSCULAR HEMOGLOBIN 29 PG (25-34); MEAN CORPUSCULAR HGB CONC 33 G/DL (32-36); MEAN CORPUSCULAR VOLUME 88 FL (80-99); MONOCYTES # (AUTO) 0.9 X 10^3 (0.0-1.0); MONOCYTES % (AUTO) 9 % (0-12); NEUTROPHILS # (AUTO) 7.6 X 10^3 (1.8-7.8); NEUTROPHILS % (AUTO) 72 % (42-75); PLATELET COUNT 307 10^3/uL (130-400); RED CELL DISTRIBUTION WIDTH 12.9 % (10.0-14.5); WHITE BLOOD COUNT 10.6 10^3/uL (4.3-11.0)
[2019-02-10] MEDS: predniSONE 20 MG TAB PO SCH (06:26)
[2019-02-10] MEDS: inSUlin ASPART (NovoLOG) 1 UNIT/0.01 ML (CHARGE PER UNIT) SC SCH ×4 (06:26→19:51)
[2019-02-10 06:33] LABS: CALCIUM 9.7 MG/DL (8.5-10.1); CREATININE SERUM 0.89 MG/DL (0.60-1.30); POTASSIUM 3.6 MMOL/L (3.6-5.0)
[2019-02-10] MEDS: RT-ALBUTEROL SULF 2.5 MG/3 ML PRE-MIX VIAL INH SCH ×4 (07:22→19:00)
--- NOTE | 2019-02-10 07:30 | NUR ---
Patient was placed on RA at this time, RT let RN and Aide know of this change
[2019-02-10 08:11] VITALS: BP 156/71
[2019-02-10] MEDS: amLODIPine 5 MG (NORVASC) TAB PO SCH (08:18)
[2019-02-10] MEDS: LEVOTHYROXINE 100 MCG (LEVOTHROID) TAB PO SCH (08:18)
[2019-02-10] MEDS: AZITHROMYCIN 250 MG TAB (ZITHROMAX) PO SCH (08:18)
[2019-02-10] MEDS: PANTOPRAZOLE 40 MG (PROTONIX) TAB PO SCH (08:18)
--- NOTE | 2019-02-10 10:33 | NUR ---
When RT entered the patients room she was on RA and satting 88% so RT placed NC back on patient at 1 L.
--- NOTE | 2019-02-10 11:09 | Physical Therapy Daily Note ---
PT Daily Note-Current Subjective Patient is in bed and agrees to PT. Mental Status Patient Orientation: Confused Transfers Therapy Code Descriptions/Definitions Functional [place] Measure: 0=Not Assessed/NA 4=Minimal Assistance 1=Total Assistance 5=Supervision or Setup 2=Maximal Assistance 6=Modified [place] 3=Moderate Assistance 7=Complete [place] Therapy Quality Codes: 6 Independent with activity with or without an assistive device 5 Patient requires set up or clean up by helper. Patient completes activity by themselves 4 Supervision or touching assist (CGA). [place] provide cues , steadying assist 3 The helper provides less than half the effort to complete the activity 2 The helper provides more than half the effort to complete the activity 1 Dependent. The helper does all the effort to complete an activity 7 Patient refused to complete or attempt activity 9 The patient did not perform the activity before the current illness or injury 88 Not attempted due to Medical conditions or safety concerns Transfers (B, C, W/C) (FIM): 5 Scootin Rollin Supine to/from Sit: 5 Sit to/from Stand: 5 Bed to/from Chair: 5 Weight Bearing Right Lower Extremity: Right Weight Bearing/Tolerated Left Lower Extremity: Left Weight Bearing/Tolerated Gait Training Gait (FIM): 5 Distance (FIM): 3=150 ft Distance: 200' Gait Level of Assist: 5 Gait Assistive Device: FWW slow, steady, functional Exercises Seated Therapy Exercises: Ankle pumps, Long arc quads Seated Reps: 12 (constant cues due to confusion) Assessment Patient is up in recliner with chair alarm activated. PT called in patient's breakfast. Patient tolerated treatment without difficulty. PT Short Term Goals Short Term Goals Time Frame: Feb 16, 2019 Transfers (B,C,W/C) (FIM): 5 Gait (FIM): 5 Gait Distance Comment: 200' Gait Level of Assist: 5 Gait Assistive Device: FWW PT Plan Treatment/Plan Treatment Plan: Continue Plan of Care Treatment Plan: Bed Mobility, Education, Functional Activity Bandar, Functional Strength, Gait, Safety, Therapeutic Exercise, Transfers Treatment Duration: Feb 16, 2019 Frequency: 6 times per week Estimated Hrs Per Day: .25 hour per day Patient and/or Family Agrees t: Yes Time/GCodes Time In: 959 Time Out: 1013 Total Billed Treatment Time: 14 Total Billed Treatment 1 visit FA 14 min MARVIN BAE PT Feb 10, 2019 11:09
--- NOTE | 2019-02-10 15:59 | NUR ---
CM/SS spoke with patient and then her Daughter Svetlana ([phone]) about discharge planning. Patient does live with Svetlana in [place]. They want discharge plan for her to be back to home, they were agreeable to HHC. Patient has previously had HHC with [facility] and that would be her preference again. Will continue to follow for oxygen need and communication with Svetlana.
[2019-02-10 16:00] VITALS: BP 137/61
[2019-02-10] MEDS: ENOXAPARIN 40 MG/0.4 ML (LOVENOX) SYR SQ SCH (18:01)
--- NOTE | 2019-02-10 18:24 | Progress Note ---
Subjective Subjective/Events-last exam Patient sitting in chair this AM. Breathing more comfortable this AM. Tolerating PO. Ambulating with minimal assist. Review of Systems Pulmonary: Dyspnea Cardiovascular: No: Chest Pain, Palpitations Gastrointestinal: No: Nausea, Vomiting, Abdominal Pain Genitourinary: No Dysuria, No Frequency Neurological: Weakness Objective Exam Last Set of Vital Signs Vital Signs Date Time Temp Pulse Resp B/P (MAP) Pulse Ox O2 Delivery O2 Flow Rate FiO2 02/10/19 16:00 37.3 88 18 137/61 95 Room Air 1.00 Capillary Refill : Less Than 3 Seconds I&O Intake and Output 02/10/19 00:00 Intake Total 690 ml Output Total 500 ml Balance 190 ml Intake Oral 690 ml Output Urine Total 500 ml # Voids 4 General: Alert, Oriented X3, Cooperative, No Acute Distress Lungs: Clear to Auscultation, Normal Air Movement Heart: Regular Rate, No Murmurs Abdomen: Normal Bowel Sounds, Soft, No Tenderness, No Masses Extremities: No Edema, No Tenderness/Swelling Neuro: Normal Gait, Normal Speech, Sensation Intact, Cranial Nerves 3-12 NL Results/Procedures Lab Laboratory Tests 02/09/19 20:43: Glucometer 460*H 02/09/19 21:46: Glucometer 425*H 02/10/19 05:35: White Blood Count 10.6, Red Blood Count 3.80L, Hemoglobin 11.0L, Hematocrit 33L, Mean Corpuscular Volume 88, Mean Corpuscular Hemoglobin 29, Mean Corpuscular Hemoglobin Concent 33, Red Cell Distribution Width 12.9, Platelet Count 307, Me an Platelet Volume 10.0, Neutrophils (%) (Auto) 72, Lymphocytes (%) (Auto) 19, Monocytes (%) (Auto) 9, Eosinophils (%) (Auto) 0, Basophils (%) (Auto) 0, Neutrophils # (Auto) 7.6, Lymphocytes # (Auto) 2.0, Monocytes # (Auto) 0.9, Eosinophils # (Auto) 0.0, Basophils # (Auto) 0.0, Sodium Level 140, Potassium Level 3.6, Chloride Level 106, Carbon Dioxide Level 23, Anion Gap 11, Blood Urea Nitrogen 22H, Creatinine 0.89, Estimat Glomerular Filtration Rate 60, BUN/Creatinine Ratio 25, Glucose Level 119H, Calcium Level 9.7 02/10/19 06:25: Glucometer 126H 02/10/19 08:25: Glucometer 137H 02/10/19 14:58: Glucometer 325H Microbiology 02/06/19 Blood Culture - Preliminary, Resulted No growth 02/06/19 Urine Culture - Final, Complete NO GROWTH Assessment/Plan Assessment/Plan (1) CAP (community acquired pneumonia) Status: Acute Assessment & Plan: 02/09: Rocephin and Azithromycin and steroids added today, MAT protocol, BNP pending 02/10: Continue antibiotics, steroids and MAT protocol Qualifiers: Qualified Codes: J18.9 - Pneumonia, unspecified organism (2) Right upper lobe pulmonary nodule Status: Acute Assessment & Plan: 02/09: Incidental finding, will need f.u 6-12 months (3) Urinary tract infection Status: Acute Assessment & Plan: - culture pending, Continue rocephin 02/08: Culture NGTD, continue rocephin at this time 02/09: Completed treatment for possible UTI, will continue Rocephin at this time for PNA Qualifiers: Qualified Codes: N10 - Acute pyelonephritis (4) Shortness of breath Status: Acute Assessment & Plan: 02/08: Review of CT does not show sign of PE, MAT protocol ordered, PT ordered 02/09: CTA ordered today, neg for PE, New pleural effusion on the left and new consolidations, will treat for PNA, IS, steroids (5) Elevated lactic acid level Status: Resolved (6) Elevated d-dimer Status: Acute Assessment & Plan: - CTA pending 02/08: No evidence of PE (7) Fall Status: Acute Assessment & Plan: - PT/OT, requires minimal assist Qualifiers: Qualified Codes: W19.XXXA - Unspecified fall, initial encounter (8) DVT prophylaxis Status: Acute Assessment & Plan: - lovenox Clinical Quality Measures DVT/VTE Risk/Contraindication: Risk Factor Score Per Nursin RFS Level Per Nursing on Admit: 4+=Very High JACKIE ZAMAN MD Feb 10, 2019 18:24
[2019-02-10] MEDS ORDERED: WATER (STERILE) FOR INJECTION 10 ML ONE (19:35)
[2019-02-10] MEDS ORDERED: cefTRIAXone 1,000 MG IV (ROCEPHIN) VIAL ONE (19:35)
[2019-02-10] MEDS: cefTRIAXone 1,000 MG/SWFI 10 ML IV PUSH IV SCH ×2 (19:46)
[2019-02-10 23:55] VITALS: BP 136/67
[2019-02-11 04:18] VITALS: BP 162/75
[2019-02-11 05:55] LABS: BASOPHILS % (AUTO) 0 % (0-10); EOSINOPHILS # (AUTO) 0.1 10^3/uL (0.0-0.3); EOSINOPHILS % (AUTO) 1 % (0-10); HEMATOCRIT 33 % (35-52); HEMOGLOBIN 10.9 G/DL (11.5-16.0); LYMPHOCYTES % (AUTO) 31 % (12-44); MEAN CORPUSCULAR HEMOGLOBIN 29 PG (25-34); MEAN CORPUSCULAR HGB CONC 33 G/DL (32-36); MEAN CORPUSCULAR VOLUME 88 FL (80-99); MEAN PLATELET VOLUME 10.1 FL (7.4-10.4); MONOCYTES % (AUTO) 8 % (0-12); NEUTROPHILS # (AUTO) 7.7 X 10^3 (1.8-7.8); NEUTROPHILS % (AUTO) 60 % (42-75); PLATELET COUNT 313 10^3/uL (130-400); RED CELL DISTRIBUTION WIDTH 12.9 % (10.0-14.5); WHITE BLOOD COUNT 12.8 10^3/uL (4.3-11.0)
[2019-02-11 06:20] LABS: CALCIUM 9.7 MG/DL (8.5-10.1); CREATININE SERUM 1.19 MG/DL (0.60-1.30); POTASSIUM 3.8 MMOL/L (3.6-5.0)
[2019-02-11] MEDS: predniSONE 20 MG TAB PO SCH (06:37)
[2019-02-11] MEDS: inSUlin ASPART (NovoLOG) 1 UNIT/0.01 ML (CHARGE PER UNIT) SC SCH ×2 (06:37→11:01)
[2019-02-11] MEDS: RT-ALBUTEROL SULF 2.5 MG/3 ML PRE-MIX VIAL INH SCH (07:22)
[2019-02-11 08:00] VITALS: BP 140/56
[2019-02-11] MEDS: amLODIPine 5 MG (NORVASC) TAB PO SCH (08:55)
[2019-02-11] MEDS: AZITHROMYCIN 250 MG TAB (ZITHROMAX) PO SCH (08:55)
[2019-02-11] MEDS: PANTOPRAZOLE 40 MG (PROTONIX) TAB PO SCH (08:55)
[2019-02-11] MEDS: LEVOTHYROXINE 100 MCG (LEVOTHROID) TAB PO SCH (08:55)
[2019-02-11 09:33] VITALS: BP 162/75
--- NOTE | 2019-02-11 10:14 | Physical Therapy Daily Note ---
PT Daily Note-Current Subjective Patient agrees to PT. Pain Numeric Pain Scale: 0-No Pain Location: No Pain Reported Mental Status Patient Orientation: Confused Attachments: Oxygen (2L O2) Transfers Therapy Code Descriptions/Definitions Functional [place] Measure: 0=Not Assessed/NA 4=Minimal Assistance 1=Total Assistance 5=Supervision or Setup 2=Maximal Assistance 6=Modified [place] 3=Moderate Assistance 7=Complete [place] Therapy Quality Codes: 6 Independent with activity with or without an assistive device 5 Patient requires set up or clean up by helper. Patient completes activity by themselves 4 Supervision or touching assist (CGA). [place] provide cues , steadying assist 3 The helper provides less than half the effort to complete the activity 2 The helper provides more than half the effort to complete the activity 1 Dependent. The helper does all the effort to complete an activity 7 Patient refused to complete or attempt activity 9 The patient did not perform the activity before the current illness or injury 88 Not attempted due to Medical conditions or safety concerns Transfers (B, C, W/C) (FIM): 5 Scootin Sit to/from Stand: 5 assistance to cleanse after BM Weight Bearing Right Lower Extremity: Right Weight Bearing/Tolerated Left Lower Extremity: Left Weight Bearing/Tolerated Gait Training Gait (FIM): 5 Distance (FIM): 3=150 ft Distance: 275' Gait Level of Assist: 5 Gait Assistive Device: FWW safe and functional/assistance for O2 tank Exercises Seated Therapy Exercises: Ankle pumps, Long arc quads Seated Reps: 15 Assessment Patient tolerated treatment well and remains up in recliner with chair alarm activated. O2 2L NC with activity and at rest due to decrease in SAO2 per RT report. PT Short Term Goals Short Term Goals Time Frame: Feb 16, 2019 Transfers (B,C,W/C) (FIM): 5 Gait (FIM): 5 Gait Distance Comment: 200' Gait Level of Assist: 5 Gait Assistive Device: FWW PT Plan Treatment/Plan Treatment Plan: Continue Plan of Care Treatment Plan: Bed Mobility, Education, Functional Activity Bandar, Functional Strength, Gait, Safety, Therapeutic Exercise, Transfers Treatment Duration: Feb 16, 2019 Frequency: 6 times per week Estimated Hrs Per Day: .25 hour per day Patient and/or Family Agrees t: Yes Time/GCodes Time In: 901 Time Out: 924 Total Billed Treatment Time: 23 Total Billed Treatment 1 visit FA x 2 23 min MARVIN BAE PT Feb 11, 2019 10:13
--- NOTE | 2019-02-11 11:37 | NUR ---
Pt removed off of 1 lpm at 1115, Sp02 93% on RA, Dr. Yates notified
--- NOTE | 2019-02-11 11:55 | Discharge Summary ---
Diagnosis/Chief Complaint Date of Admission Feb 06, 2019 at 20:28 Date of Discharge 02/11/2019 Admission Diagnosis Admission Diagnosis See problem list Discharge Diagnosis See below Problems/Diagnosis: (1) CAP (community acquired pneumonia) Assessment & Plan: 02/09: Rocephin and Azithromycin and steroids added today, MAT protocol, BNP pending 02/10: Continue antibiotics, steroids and MAT protocol 02/11: Sent home to complete azithromycin and cefdinir Qualifiers: Qualified Codes: J18.9 - Pneumonia, unspecified organism Status: Acute (2) Right upper lobe pulmonary nodule Assessment & Plan: 02/09: Incidental finding, will need f.u 6-12 months Status: Acute (3) Urinary tract infection Assessment & Plan: - culture pending, Continue rocephin 02/08: Culture NGTD, continue rocephin at this time 02/09: Completed treatment for possible UTI, will continue Rocephin at this time for PNA Qualifiers: Qualified Codes: N10 - Acute pyelonephritis Status: Acute (4) Shortness of breath Assessment & Plan: 02/08: Review of CT does not show sign of PE, MAT protocol ordered, PT ordered 02/09: CTA ordered today, neg for PE, New pleural effusion on the left and new consolidations, will treat for PNA, IS, steroids Status: Acute (5) Elevated lactic acid level Status: Resolved Resolution Date/Time: 02/07/19 @ 20:55 (6) Elevated d-dimer Assessment & Plan: - CTA pending 02/08: No evidence of PE Status: Acute (7) Fall Assessment & Plan: - PT/OT, requires minimal assist Qualifiers: Qualified Codes: W19.XXXA - Unspecified fall, initial encounter Status: Acute (8) DVT prophylaxis Assessment & Plan: - lovenox Status: Acute Chief Complaint/HPI Chief Complaint/HPI 83 yo F that presented with weakness and falls. Found to have concerns for UTI upon arrival. States that she has been feeling weak for about 3-4 days prior to arriving. Denies any fever, chill, shortness of breath or chest pain. h/o HTN that seems to be well controlled on PO meds. Has had decreased PO intake and decreased UOP. Discharge Summary-Simple/Stand Consultations Discharge Physical Examination Allergies: Coded Allergies: lisinopril (Verified Allergy, Mild, SWELLING, COULDN'T BREATHE, 01/12/16) Vitals & I&Os Vital Sign - Last 12Hours Date Time Temp Pulse Resp B/P (MAP) Pulse Ox O2 Delivery O2 Flow Rate FiO2 02/11/19 09:33 77 98 02/11/19 08:00 36.6 18 140/56 Nasal Cannula 1.00 Intake and Output 02/11/19 00:00 Intake Total 1178 ml Output Total 250 ml Balance 928 ml General Appearance: Alert, Oriented X3, Cooperative, No Acute Distress Respiratory: Clear to Auscultation, Normal Air Movement Cardiovascular: Regular Rate, No Murmurs Abdominal: Normal Bowel Sounds, Soft, No Tenderness, No Masses Extremities: No Edema, No Tenderness/Swelling Skin: No Rashes, No Breakdown Neuro: Normal Speech, Strength at 5/5 X4 Ext, Sensation Intact, Cranial Nerves 3-12 NL Psych/Mental Status: Mental Status NL, Mood NL Hospital Course See final discharge diagnosis. Other pending tests NEEDS REPEAT CHEST CT MONITOR INCIDENTAL PULMONARY NODULE IN 6 MONTHS Discussion & Recommendations 83 YO F that presented to ED with increasing weakness and lethargy. Patient was found to have a UTI and was requiring oxygen which she does not need at home. CXR reveal to interstitial markings concerning for PNA and an incidental pulm onary nodule. She also had an elevated D-dimer and CTA was performed on day 2 after improvement in Cr which did not show signs of PE but did show concerns for PNA. Patient was started on IV antibiotics to cover for CAP and UTI. She was able to be weaned off oxygen and her weakness improved and she was up ambulating at time of discharge. Patient was sent home to complete PO antibiotics and orders were also placed to have nursing and PT help at home. Discharge Condition at discharge stable Instructions to patient/family Please see electronic discharge instructions given to patient. Discharge Medications Reviewed and agree with Discharge Medication list on patient's Discharge Instru ction sheet Clinical Quality Measures DVT/VTE Risk/Contraindication: Risk Factor Score Per Nursin RFS Level Per Nursing on Admit: 4+=Very High Copy Copies To 1: NICO ANTONIO MD, HOLLY R MD Feb 11, 2019 11:55
[2019-02-11] MEDS ORDERED: PRD20T PO (12:00)
[2019-02-11] MEDS ORDERED: CEFD300C3 PO (12:00)
[2019-02-11] MEDS ORDERED: AZIT250T12 PO (12:00)
--- NOTE | 2019-02-11 12:12 | D/C HH Face to Face Order ---
D/C Face to Face Orders Reconcile Patient Problems Problems Reviewed?: Yes Instructions for Patient Via [employer], Patient Instructions/FollowUp: F/u with Dr Solorio on Feb 15 @ 11 AM Physician to follow Patient: Osmin Discharge Diet for Home: Cardiac Diet Patient Problems: CAP UTI Right upper lobe nodule Goals for Patient: - Increased endurance with ambulation - Steady gait - Improved breathing Patient Data-Allergies,Ht & Wt Patient Allergies: Coded Allergies: lisinopril (Verified Allergy, Mild, SWELLING, COULDN'T BREATHE, 01/12/16) Height (Feet): 5 Height (Inches): 2.00 Weight (Pounds): 111 Weight (Ounces): 3.0 New Medications: Cefdinir (Cefdinir) 300 Mg Capsule 300 MG PO BID for 5 Days, #10 CAP Azithromycin (Azithromycin) 250 Mg Tablet 250 MG PO DAILY for 5 Days, #5 TAB Prednisone (Prednisone) 20 Mg Tab 20 MG PO DAILY@0700 for 11 Days, #8 TAB Take 1 tab for 5 days, then 1/2 tab for 6 days and then stop Continued Medications: Albuterol Sulfate (Proair Hfa) 1 Puff Puff 2 PUFF IH Q4H PRN for SHORTNESS OF BREATH, PUFF 1 PUFF = 90 MCG Amlodipine Besylate (Amlodipine Besylate) 5 Mg Tablet 5 MG PO DAILY, TAB Escitalopram Oxalate (Escitalopram Oxalate) 10 Mg Tablet 10 MG PO DAILY, TAB Levothyroxine Sodium (Levothyroxine Sodium) 100 Mcg Tablet 100 MCG PO DAILY, TAB Melatonin (Melatonin) 5 Mg Tablet 5 MG PO HS, TAB Omeprazole (Omeprazole) 20 Mg Capsule.dr 20 MG PO BID, CAP Telmisartan (Telmisartan) 40 Mg Tablet 40 MG PO DAILY, TAB Discontinued Medications: Ibuprofen (Advil) 200 Mg Tablet 400 MG PO Q6H PRN for PAIN-MILD, TAB Home Health Need/Face to Face Date of Face to Face: Feb 11, 2019 Clinical Findings: Generalized weakness and fatigue, Muscle weakness, Shortness of breath, Unsteady gait I have seen Pt [id number]: Yes Discharged To: Home Diagnosis/Conditions: See Above Patient is Homebound due to: [place] fall risk due to instabilty, Muscle weakness, Shortness of breath/distress Homebound Status Due to the above stated illness, injury or surgical procedure (medical condition or diagnosis) and associated clinical findings, the patient is homebound because of his/her inability to leave home except with aid of a supportive device and/or person AND leaving the home requires a considerable and taxing effort or is medically contraindicated. Pt req the following assistanc: Aid of another person, [facility] Nursing Orders Home Health Services Order: Nursing Services, [employer]-Evaluate & Treat, Physical Therapy-Evaluate & Treat Home Health Infusion Therapy Line Start Date: Feb 06, 2019 Therapy Orders Therapy Orders: Physical Therapy, PT to assess for OT Therapy Specific Orders: Eval assistive deivces, Teach enviro modifications/safety, Gait training, Increase strength/endurance, Restore ROM Certify Stmt I certify that this patient is under my care and that I, a nurse practitioner or a physician; a after school program assistant working with me, had a face to face encounter that - meets the physician face to face encounter requirements with this patient as dated. JACKIE ZAMAN MD Feb 11, 2019 12:06
--- NOTE | 2019-02-11 13:36 | NUR ---
CM/SS discharge planning. Patient requested [facility] for [facility], necessary paperwork sent to them for services. They will see the patient on Mon as they do not have PT/OT over the weekend. They will make arrangements with Svetlana (patient's daughter). Patient choice form in chart. Svetlana is arranging transportation of the patient.
== END 2019-02-11 14:05 | disposition home health service (06) | DRG 689 ==
LOC: EDUNIT# 16:58 → ER 16:59 → ICU 20:28 → 4TH 02-07 13:50
PROVIDERS: ADMIT Internal Medicine; ATTEND Internal Medicine
DX: N10 Acute pyelonephritis (principal); S20.211A Contusion of right front wall of thorax, initial encounter; J18.9 Pneumonia, unspecified organism; R64 Cachexia; F03.91 Unspecified dementia, unspecified severity, with behavioral disturbance; J90 Pleural effusion, not elsewhere classified; E87.2 Acidosis; R91.1 Solitary pulmonary nodule; R53.1 Weakness; R74.0 Nonspecific elevation of levels of transaminase and lactic acid dehydrogenase [LDH]; R63.0 Anorexia; I10 Essential (primary) hypertension; E11.9 Type 2 diabetes mellitus without complications; E03.9 Hypothyroidism, unspecified; E78.00 Pure hypercholesterolemia, unspecified; K21.9 Gastro-esophageal reflux disease without esophagitis; M19.91 Primary osteoarthritis, unspecified site; F32.9 Major depressive disorder, single episode, unspecified; R79.1 Abnormal coagulation profile; W19.XXXA Unspecified fall, initial encounter; Z79.84 Long term (current) use of oral hypoglycemic drugs; Z87.820 Personal history of traumatic brain injury; Z86.011 Personal history of benign neoplasm of the brain
CPT/HCPCS: 36415; 70450; 71045; 71250; 71275; 80048; 80053; 80061; 81000; 82962; 83036; 83605; 83735; 83874; 83880; 84484; 85025; 85379; 85610; 85730; 87040; 87088; 93005; 93041; 94640; 94664; 94760; 96361; 96372; 96374

== ENCOUNTER 2019-07-10 11:11 | Observation (INO) | payer MEDICARE, OTHER, MEDICAID ==
[~2019-07-10] VITALS: Ht 157.5 cm; Wt 42.2 kg
[~2019-07-10 11:11] MED LIST changes: +AZIT250T12 PO; +CEFD300C3 PO; +OMEP-280 PO; -OMEP20CA13 PO; +PRD20T PO; +RT-ALBUINH IH
--- NOTE | 2019-07-10 11:20 | ED General ---
General Stated Complaint: SOB Source of Information: Patient Exam Limitations: No Limitations History of Present Illness Date Seen by Provider: Jul 10, 2019 Time Seen by Provider: 11:19 Initial Comments To ER per EMS from home with shortness of breath that began 2-3 days ago. History of COPD but she believes she is over that now. Timing/Duration: 2-3 Days Severity: Moderate Associated Systoms: Cough, Shortness of Air Allergies and Home Medications Allergies Coded Allergies: lisinopril (Verified Allergy, Mild, SWELLING, COULDN'T BREATHE, 01/12/16) Home Medications Albuterol Sulfate 1 Puff Puff, 2 PUFF IH Q4H PRN for SHORTNESS OF BREATH, (Reported) 1 PUFF = 90 MCG Amlodipine Besylate 5 Mg Tablet, 5 MG PO DAILY, (Reported) Azithromycin 250 Mg Tablet, 250 MG PO DAILY Prescribed by: JACKIE ZAMAN on 02/11/19 1200 Cefdinir 300 Mg Capsule, 300 MG PO BID Prescribed by: JACKIE ZAMAN on 02/11/19 1200 Escitalopram Oxalate 10 Mg Tablet, 10 MG PO DAILY, (Reported) Levothyroxine Sodium 100 Mcg Tablet, 100 MCG PO DAILY, (Reported) Melatonin 5 Mg Tablet, 5 MG PO HS, (Reported) Omeprazole 20 Mg Capsule.dr, 20 MG PO BID, (Reported) Prednisone 20 Mg Tab, 20 MG PO DAILY@0700 Take 1 tab for 5 days, then 1/2 tab for 6 days and then stop Prescribed by: JACKIE ZAMAN on 02/11/19 1200 Telmisartan 40 Mg Tablet, 40 MG PO DAILY, (Reported) Patient Home Medication List Home Medication List Reviewed: Yes Review of Systems Review of Systems Constitutional: see HPI EENTM: see HPI Respiratory: see HPI, cough Cardiovascular: no symptoms reported Genitourinary: no symptoms reported Musculoskeletal: no symptoms reported Skin: no symptoms reported Psychiatric/Neurological: No Symptoms Reported Hematologic/Lymphatic: No Symptoms Reported Past Otpylro-Bvonjz-Zmzhwn Hx Patient Social History 2nd Hand Smoke Exposure: No Recent Foreign Travel: No Recent Hopitalizations: Yes Immunizations Up To Date Tetanus Booster (TDap): Less than 5yrs Date of Pneumonia Vaccine: Mar 01, 2010 Date of Influenza Vaccine: Mar 01, 2015 Seasonal Allergies Seasonal Allergies: No Past Medical History Surgeries: Yes (SURGERY/PINS ON RODDY FEET, BRAIN SX-BEIGN TUMOR, crainiotomy) Hysterectomy, Oophorectomy, Orthopedic Respiratory: No Currently Using CPAP: No Currently Using BIPAP: No Cardiac: Yes High Cholesterol, Hypertension Neurological: Yes (Fall with head bleed) Brain Tumor, Dementia, Traumatic Brain Injury 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 Disorders: No Female 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 Disorders: Denies [employer] DRILL[employer] History: Hysterectomy Sexually Transmitted Disease: No HIV/AIDS: No Genitourinary: Yes Renal Failure, UTI-Chronic Gastrointestinal: Yes Gastroesophageal Reflux Musculoskeletal: Yes Arthritis Endocrine: Yes Hypothyroidsim, Diabetes, Non-Insulin dep HEENT: Yes Loss of Vision: Denies Hearing Impairment: Hard of Hearing Cancer: No Psychosocial: Yes (hallucinations, secondary to her dementia) Depression Integumentary: No Blood Disorders: No Family Medical History Cardiovascular disease DAUGHTER Diabetes mellitus DAUGHTER Respiratory disorder DAUGHTER Heart Disease, COPD Physical Exam Vital Signs Vital Signs - First Documented 07/10/19 07/10/19 11:11 12:12 Temp 37.3 Pulse 97 Resp 16 B/P (MAP) 134/71 (92) Pulse Ox 100 O2 Delivery Nasal Cannula O2 Flow Rate 2.00 Capillary Refill : Height, Weight, BMI Height: 5'2.00" Weight: 111lbs. 3.0oz. 50.012198op; 22.3 BMI Method:Stated General Appearance: No Apparent Distress, WD/WN Eyes: Bilateral Eye Normal Inspection, Bilateral Eye PERRL, Bilateral Eye EOMI HEENT: PERRL/EOMI, TMs Normal Neck: Full Range of Motion, Normal Inspection Respiratory: No Accessory Muscle Use, Decreased Breath Sounds, Wheezing Extremity: Normal Capillary Refill, Normal Inspection Neurologic/Psychiatric: Alert, Oriented x3 Skin: Normal Color (a heel past), Warm/Dry Focused Exam Lactate Level 07/10/19 11:25: Lactic Acid Level 0.87 Lactic Acid Level Laboratory Tests Test 07/10/19 11:25 Lactic Acid Level 0.87 MMOL/L (0.50-2.00) Progress/Results/Core Measures Suspected Sepsis SIRS Temperature: Pulse: Respiratory Rate: Laboratory Tests 07/10/19 11:25: White Blood Count 8.0 Blood Pressure / Mean: 07/10/19 11:25: Lactic Acid Level 0.87 Laboratory Tests 07/10/19 11:25: Creatinine 1.00, Platelet Count 274, Total Bilirubin 0.6 Results/Orders Lab Results Laboratory Tests Test 07/10/19 11:25 07/10/19 11:43 Range/Units White Blood Count 8.0 4.3-11.0 10^3/uL Red Blood Count 4.62 4.35-5.85 10^6/uL Hemoglobin 13.8 11.5-16.0 G/DL Hematocrit 41 35-52 % Mean Corpuscular Volume 90 80-99 FL Mean Corpuscular Hemoglobin 30 25-34 PG Mean Corpuscular Hemoglobin Concent 33 32-36 G/DL Red Cell Distribution Width 12.7 10.0-14.5 % Platelet Count 274 130-400 10^3/uL Mean Platelet Volume 9.8 7.4-10.4 FL Neutrophils (%) (Auto) 80 H 42-75 % Lymphocytes (%) (Auto) 14 12-44 % Monocytes (%) (Auto) 5 0-12 % Eosinophils (%) (Auto) 2 0-10 % Basophils (%) (Auto) 1 0-10 % Neutrophils # (Auto) 6.3 1.8-7.8 X 10^3 Lymphocytes # (Auto) 1.1 1.0-4.0 X 10^3 Monocytes # (Auto) 0.4 0.0-1.0 X 10^3 Eosinophils # (Auto) 0.2 0.0-0.3 10^3/uL Basophils # (Auto) 0.0 0.0-0.1 10^3/uL Sodium Level 137 135-145 MMOL/L Potassium Level 4.3 3.6-5.0 MMOL/L Chloride Level 101 98-107 MMOL/L Carbon Dioxide Level 24 21-32 MMOL/L Anion Gap 12 5-14 MMOL/L Blood Urea Nitrogen 17 7-18 MG/DL Creatinine 1.00 0.60-1.30 MG/DL Estimat Glomerular Filtration Rate 53 BUN/Creatinine Ratio 17 Glucose Level 175 H 70-105 MG/DL Lactic Acid Level 0.87 0.50-2.00 MMOL/L Calcium Level 10.4 H 8.5-10.1 MG/DL Corrected Calcium 10.0 8.5-10.1 MG/DL Total Bilirubin 0.6 0.1-1.0 MG/DL Aspartate Amino Transf (AST/SGOT) 20 5-34 U/L Alanine Aminotransferase (ALT/SGPT) 13 0-55 U/L Alkaline Phosphatase 82 40-136 U/L Troponin I < 0.028 <0.028 NG/ML B-Type Natriuretic Peptide 85.2 <100.0 PG/ML Total Protein 8.2 6.4-8.2 GM/DL Albumin 4.5 3.2-4.5 GM/DL Blood Gas Puncture Site LT RADIAL Blood Gas Patient Temperature 37.3 Arterial Blood pH 7.43 7.37-7.43 Arterial Blood Partial Pressure CO2 40 35-45 MMHG Arterial Blood Partial Pressure O2 67 L 79-93 MMHG Arterial Blood HCO3 26 23-27 MMOL/L Arterial Blood Total CO2 27.3 21.0-31.0 MMOL/L Arterial Blood Oxygen Saturation 94 94-100 % Arterial Blood Base Excess 2.2 -2.5-2.5 MMOL/L Seven Test YES-POS Blood Gas Ventilator Setting NO Blood Gas Inspired Oxygen 2 Micro Results Microbiology 07/10/19 Influenza Types A,B Antigen (DARRYL) - Final, Complete My Orders Orders - LIZABETH SERRANO APRN Cbc With Automated Diff (07/10/19 11:13) Comprehensive Metabolic Panel (07/10/19 11:13) Troponin I (07/10/19 11:13) BNP (07/10/19 11:13) Influenza A And B Antigens (07/10/19 11:13) Chest 1 View, Ap/Pa Only (07/10/19 11:13) Ed Iv/Invasive Line Start (07/10/19 11:13) Blood Culture (07/10/19 11:18) Lactic Acid Analyzer (07/10/19 11:18) Methylprednisolone Sod Succ (Solu-Medrol (07/10/19 11:30) Arterial Blood Gas (07/10/19 11:45) Albuterol Pre-Mix Nebs (Rt) (Proventil (07/10/19 12:15) Ipratropium 0.02% Neb Solution (Atrovent (07/10/19 12:15) Medications Given in ED Current Medications Medications Dose Ordered Sig/Kevin Route Start Time Stop Time Status Last Admin Dose Admin Methylprednisolone Sodium Succinate 125 mg ONCE ONCE IVP 07/10/19 11:30 07/10/19 11:31 DC 07/10/19 11:57 125 MG Vital Signs/I&O 07/10/19 07/10/19 11:11 12:12 Temp 37.3 Pulse 97 Resp 16 B/P (MAP) 134/71 (92) Pulse Ox 100 89 O2 Delivery Nasal Cannula O2 Flow Rate 2.00 Capillary Refill : Diagnostic Imaging Diagonstic Imaging: Xray Comments NAME: JOSE [facility] REC#: [id number] PT STATUS: REG ER : 1935 PHYSICIAN: LIZABETH SERRANO APRN ADMIT DATE: 07/10/19/ER Draft Date of Exam:07/10/19 CHEST 1 VIEW, AP/PA ONLY INDICATION: Shortness of air, low-grade fever for a couple of days. TECHNIQUE: Single view chest 11:34 a.m. CORRELATION STUDY: 02/06/2019. FINDINGS: The heart size, mediastinal configuration and pulmonary vascularity are within normal limits. The lungs are clear with no consolidating infiltrate. There is no significant effusion or pneumothorax. IMPRESSION: 1. Generally stable chest demonstrates no acute abnormality. Dictated on workstation # [id number] Dict: 07/10/19 1149 Trans: 07/10/19 1151 [facility] [id number] Interpreted by: SHERITA ROSAS DO Electronically signed by: Departure Communication (Admissions) Time/Spoke to Admitting Phy: 12:[address] Upton, we'll admit, solu-medrol consult Dr. Grimaldo. Impression Primary Impression: COPD exacerbation Disposition: ADMITTED INPATIENT Condition: Stable Admissions Decision to Admit Reason: Admit from ER (General) Decision to Admit/Date: Jul 10, 2019 Time/Decision to Admit Time: 12:27 Departure-Patient Inst. Decision time for Depature: 12:17 Referrals: NICO ANTONIO MD (PCP/Family) Primary Care Physician Patient Instructions: Exacerbation of COPD (DC) Add. Discharge Instructions: 1. Return to ER for any concerns 2. LIZABETH SERRANO APRN Jul 10, 2019 11:20
[2019-07-10] MEDS ORDERED: methylPREDNISolone 125 MG (Solu-MEDROL) VIAL IVP ONE (11:30)
[2019-07-10 11:36] LABS: BASOPHILS % (AUTO) 1 % (0-10); EOSINOPHILS # (AUTO) 0.2 10^3/uL (0.0-0.3); EOSINOPHILS % (AUTO) 2 % (0-10); HEMATOCRIT 41 % (35-52); HEMOGLOBIN 13.8 G/DL (11.5-16.0); LYMPHOCYTES # (AUTO) 1.1 X 10^3 (1.0-4.0); LYMPHOCYTES % (AUTO) 14 % (12-44); MEAN CORPUSCULAR HEMOGLOBIN 30 PG (25-34); MEAN CORPUSCULAR HGB CONC 33 G/DL (32-36); MEAN CORPUSCULAR VOLUME 90 FL (80-99); MEAN PLATELET VOLUME 9.8 FL (7.4-10.4); MONOCYTES # (AUTO) 0.4 X 10^3 (0.0-1.0); MONOCYTES % (AUTO) 5 % (0-12); NEUTROPHILS # (AUTO) 6.3 X 10^3 (1.8-7.8); NEUTROPHILS % (AUTO) 80 % (42-75); PLATELET COUNT 274 10^3/uL (130-400); RED CELL DISTRIBUTION WIDTH 12.7 % (10.0-14.5)
[2019-07-10 11:51] LABS: ABG BASE EXCESS 2.2 MMOL/L (-2.5-2.5); ABG OXYGEN SATURATION 94 % (94-100); ABG PCO2 40 MMHG (35-45); ABG PH 7.43 (7.37-7.43); ABG PO2 67 MMHG (79-93); ABG TCO2 27.3 MMOL/L (21.0-31.0)
[2019-07-10 11:52] LABS: ALLENS TEST YES-POS; INSPIRED O2 2; PATIENT TEMP 37.3; VENTILATOR NO
--- NOTE | 2019-07-10 11:52 | Diagnostic Imaging Report ---
INDICATION: Shortness of air, low-grade fever for a couple of days. TECHNIQUE: Single view chest 11:34 a.m. CORRELATION STUDY: 02/06/2019. FINDINGS: The heart size, mediastinal configuration and pulmonary vascularity are within normal limits. The lungs are clear with no consolidating infiltrate. There is no significant effusion or pneumothorax. IMPRESSION: 1. Generally stable chest demonstrates no acute abnormality. Dictated by: Dictated on workstation # [id number]
[2019-07-10 11:55] LABS: ALANINE AMINOTRANSFERASE 13 U/L (0-55); ALBUMIN 4.5 GM/DL (3.2-4.5); ALKALINE PHOSPHATASE 82 U/L (40-136); BILIRUBIN,TOTAL 0.6 MG/DL (0.1-1.0); BUN/CREATININE RATIO 17; CALCIUM 10.4 MG/DL (8.5-10.1); CARBON DIOXIDE 24 MMOL/L (21-32); CHLORIDE 101 MMOL/L (98-107); GFR ESTIMATED 53; GLUCOSE 175 MG/DL (70-105); POTASSIUM 4.3 MMOL/L (3.6-5.0); SODIUM 137 MMOL/L (135-145); TOTAL PROTEIN 8.2 GM/DL (6.4-8.2)
[2019-07-10] MEDS ORDERED: RT-ALBUTEROL SULF 2.5 MG/3 ML PRE-MIX VIAL ONE (12:15)
[2019-07-10] MEDS ORDERED: RT-IPRATROPIUM (ATROVENT) 0.5MG/2.5ML AMP IH ONE (12:15)
--- NOTE | 2019-07-10 12:15 | NUR ---
PT WITH AUDIBLE WHEEZING. LIZABETH NOTIFIED. ORDERS RECIEVED.
--- NOTE | 2019-07-10 12:25 | NUR ---
Note es in ED - 07/10/19 at [address] CHRISTENSEN WAS TALKING TO PT SHE BECAME UPSET THAT ASKED HER IF WHEN SHE SAW HER DR THE LAST TIME WAS IT FOR AN ANNUAL EXAM OR IF SHE WAS SICK. PT THEN DEMANDED TO KNOW THE RESULT OF HER UA AND TO BE GIVEN MEDICATION. LEFT THE ROOM TO FIND OUT THE RESULTS. I THEN REMOVED HER IV WHICH I PLACED WHILE WAS IN THE ROOM TALKING TO HER. CAME BACK TO THE ROOM AND TOLD PT HER UA WAS FINE AND PT STATES SHE IS GOING TO LEAVE THEN.
--- NOTE | 2019-07-10 13:03 | NUR ---
PT RESTING IN BED WITH FAMILY. DENIES NEEDS AT THIS TIME.
--- NOTE | 2019-07-10 13:05 | NUR ---
ATTEMPT TO CALL REPORT ET NURSE STATES SHE WILL CALL BACK IN 5 MINUTES.
--- NOTE | 2019-07-10 13:10 | History & Physical-Hospitalist ---
History of Present Illness HPI/Chief Complaint CC: Dyspnea HPI: This is an 83yoWF clinic patient of Dr Solorio in the midst of changing to Dr Joann Donaldson w/h/o dementia and lives alone who presents to the ER with dyspnea which has worsened the past 3 days. Patient denies fever but unsure of the reliability of any of her details. Unsure if she is taking her meds as directed. Source: patient, RN/MD, old records Exam Limitations: other (dementia) Date Seen 07/10/19 Time Seen by a Provider: 12:00 Attending Physician Lisette Upton DO PCP Rickie Solorio MD Referring Physician Date of Admission Jul 10, 2019 at 12:22 Home Medications & Allergies Home Medications Reviewed patient Home Medication Reconciliation performed by pharmacy medication reconciliations physical therapist technician and/or nursing. Patients Allergies have been reviewed. Allergies Allergies Coded Allergies lisinopril (Verified Allergy, Mild, SWELLING, COULDN'T BREATHE, 01/12/16) Past Pycocuy-Dntloo-Ywfxgw Hx Past Med/Social Hx: Reviewed Nursing Past Med/Soc Hx, Reviewed and Corrections made Patient Social History Marrital Status: single Employed/Student: retired Alcohol Use: Denies Use Recreational Drug Use: No Smoking Status: Never a Smoker 2nd Hand Smoke Exposure: No Recent Foreign Travel: No Contact w/other who traveled: No Recent Hopitalizations: Yes Recent Infectious Disease Expo: No Immunizations Up To Date Tetanus Booster (TDap): Less than 5yrs Date of Pneumonia Vaccine: Mar 01, 2010 Date of Influenza Vaccine: Mar 01, 2015 Seasonal Allergies Seasonal Allergies: No Past Medical History Surgeries: Hysterectomy, Oophorectomy, Orthopedic Respiratory: Asthma, COPD, Pneumonia Currently Using CPAP: No Currently Using BIPAP: No Cardiac: High Cholesterol, Hypertension Neurological: Brain Tumor, Dementia, Traumatic Brain Injury 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: No Sexually Transmitted Disease: No HIV/AIDS: No Female 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 Disorders: Denies Hysterectomy Genitourinary: Renal Failure, UTI-Chronic Gastrointestinal: Gastroesophageal Reflux Musculoskeletal: Arthritis Endocrine: Hypothyroidsim, Diabetes, Non-Insulin dep Loss of Vision: Denies Hearing Impairment: Hard of Hearing Psychosocial: Depression History of Blood Disorders: No Family History Cardiovascular disease DAUGHTER Diabetes mellitus DAUGHTER Respiratory disorder DAUGHTER Heart Disease, COPD Review of Systems Constitutional: see HPI Respiratory: dyspnea on exertion, wheezing Physical Exam Physical Exam Vital Signs Vital Signs - First Documented 07/10/19 07/10/19 11:11 12:12 Temp 37.3 Pulse 97 Resp 16 B/P (MAP) 134/71 (92) Pulse Ox 100 O2 Delivery Nasal Cannula O2 Flow Rate 2.00 Capillary Refill : Less Than 3 Seconds Height, Weight, BMI Height: 5'2.00" Weight: 111lbs. 3.0oz. 50.977277hb; 40.00 BMI Method:Stated General Appearance: Chronically ill, Mild Distress, Thin Eyes: Right Eye Normal Inspection, Right Eye PERRL HEENT: PERRL/EOMI, Normal ENT Inspection, Pharynx Normal, Moist Mucous Membranes Neck: Full Range of Motion, Normal Inspection, Non Tender Respiratory: Chest Non Tender, No Respiratory Distress, Accessory Muscle Use, Crackles, Decreased Breath Sounds, Rales, Wheezing Cardiovascular: Regular Rate, Rhythm, No Edema, No Gallop, No JVD, No Murmur, Normal Peripheral Pulses Gastrointestinal: Normal Bowel Sounds, No Organomegaly, No Pulsatile Mass, Non Tender, Soft Back: Normal Inspection, No CVA Tenderness, No Vertebral Tenderness Extremity: Normal Capillary Refill, Normal Inspection, Normal Range of Motion, Non Tender, No Calf Tenderness, No Pedal Edema Neurologic/Psychiatric: Alert, No Motor/Sensory Deficits, Normal Mood/Affect, Disoriented Skin: Normal Color, Warm/Dry Lymphatic: No Adenopathy Results Results/Procedures Labs Laboratory Tests 07/10/19 11:25 Patient resulted labs reviewed. Assessment/Plan Admission Diagnosis Assessment: AECOPD Hypoxia (without chronic home O2 use) Hypothyroidism IBS Dementia Plan: IV steroids Nebs Home meds Admission Status: Observation Diagnosis/Problems Diagnosis/Problems (1) COPD exacerbation Status: Acute (2) Dehydration (3) Shortness of breath Status: Acute (4) DVT prophylaxis Status: Acute LISETTE UPTON DO Jul 10, 2019 13:09
[2019-07-10 13:40] VITALS: BP 143/48
[2019-07-10] MEDS ORDERED: HYDROcodone/APAP 5 MG/325 MG (LORTAB) TAB PO PRN (14:00)
[2019-07-10] MEDS ORDERED: ONDANSETRON 4 MG (ZOFRAN) ORAL DISSOLVE TAB PO PRN (14:00)
[2019-07-10] MEDS ORDERED: MELATONIN 3 MG TABLET PO PRN (14:00)
[2019-07-10] MEDS ORDERED: RT-ALBUTEROL/IPRATROPIUM 3 ML (DUONEB) VIAL INH SCH (14:00)
[2019-07-10] MEDS ORDERED: ACETAMINOPHEN 500 MG TAB (TYLENOL) PO PRN (14:00)
[2019-07-10] MEDS ORDERED: DOCUSATE SODIUM 100 MG (COLACE) CAP PO PRN (14:00)
[2019-07-10] MEDS ORDERED: CALCIUM CARBONATE 500 MG (TUMS) TAB.CHEW PO PRN (14:00)
[2019-07-10] MEDS ORDERED: ALPRAZolam 0.25 MG (XANAX) TAB PO PRN (14:00)
[2019-07-10] MEDS ORDERED: LOPERAMIDE 2 MG (IMODIUM) TABLET PO PRN (14:00)
[2019-07-10] MEDS ORDERED: diphenhydrAMINE 25 MG TAB (BENADRYL) PO PRN (14:00)
[2019-07-10] MEDS ORDERED: ONDANSETRON 4 MG/2 ML (SDV) Z0FRAN IVP PRN (14:00)
[2019-07-10] MEDS ORDERED: FLU QUADRIvalent (5+ YOA) 2019-2020 (AFLURIA) 0.5 ML IM ONE (15:00)
[2019-07-10] MEDS: ENOXAPARIN 30 MG/0.3 ML (LOVENOX) SYR SC SCH (15:04)
[2019-07-10 16:00] VITALS: BP 154/72
[2019-07-10 16:50] VITALS: BP 154/72
[2019-07-10] MEDS ORDERED: RT-ALBUTEROL/IPRATROPIUM 3 ML (DUONEB) VIAL INH PRN (17:00)
[2019-07-10] MEDS: methylPREDNISolone 125 MG (Solu-MEDROL) VIAL IVP SCH ×2 (18:13→23:49)
[2019-07-10 20:00] VITALS: BP 127/52
[2019-07-10] MEDS: SENNA W/DOCUSATE (SENOKOT S) TABLET PO SCH (21:57)
[2019-07-10] MEDS: RT-BUDESONIDE NEBS 0.5 MG/2ML (PULMICORT) AMP INH SCH (22:31)
[2019-07-10] MEDS: RT-ALBUTEROL/IPRATROPIUM 3 ML (DUONEB) VIAL INH SCH (22:31)
[2019-07-11] VITALS: BP 148/65
--- NOTE | 2019-07-11 00:16 | NUR ---
PT PULLED TELEMETRY OFF AND PULLED HL OUT. RESTARTED TO RIGHT FOREARM
[2019-07-11] MEDS: RT-ALBUTEROL/IPRATROPIUM 3 ML (DUONEB) VIAL INH SCH ×3 (02:25→15:40)
[2019-07-11] MEDS: RT-BUDESONIDE NEBS 0.5 MG/2ML (PULMICORT) AMP INH SCH ×2 (02:29→09:07)
[2019-07-11 04:00] VITALS: BP 155/74
[2019-07-11 04:12] LABS: BASOPHILS % (AUTO) 0 % (0-10); EOSINOPHILS % (AUTO) 0 % (0-10); HEMATOCRIT 35 % (35-52); HEMOGLOBIN 12.2 G/DL (11.5-16.0); LYMPHOCYTES # (AUTO) 0.7 X 10^3 (1.0-4.0); LYMPHOCYTES % (AUTO) 9 % (12-44); MEAN CORPUSCULAR HEMOGLOBIN 30 PG (25-34); MEAN CORPUSCULAR HGB CONC 35 G/DL (32-36); MEAN CORPUSCULAR VOLUME 88 FL (80-99); MEAN PLATELET VOLUME 9.7 FL (7.4-10.4); MONOCYTES # (AUTO) 0.1 X 10^3 (0.0-1.0); MONOCYTES % (AUTO) 1 % (0-12); NEUTROPHILS # (AUTO) 7.7 X 10^3 (1.8-7.8); NEUTROPHILS % (AUTO) 91 % (42-75); PLATELET COUNT 284 10^3/uL (130-400); RED CELL DISTRIBUTION WIDTH 12.5 % (10.0-14.5); WHITE BLOOD COUNT 8.6 10^3/uL (4.3-11.0)
[2019-07-11 04:39] LABS: ALBUMIN 4.3 GM/DL (3.2-4.5); BILIRUBIN,TOTAL 0.4 MG/DL (0.1-1.0); CALCIUM 10.6 MG/DL (8.5-10.1); CREATININE SERUM 1.23 MG/DL (0.60-1.30); POTASSIUM 3.7 MMOL/L (3.6-5.0); TOTAL PROTEIN 7.5 GM/DL (6.4-8.2)
--- NOTE | 2019-07-11 06:36 | NUR ---
IV RESTARTED TO RIGHT ARM AGAIN D/T PT PULLING IT OUT AGAIN
[2019-07-11] MEDS: methylPREDNISolone 125 MG (Solu-MEDROL) VIAL IVP SCH (06:39)
--- NOTE | 2019-07-11 07:15 | Pulmonary Consultation ---
History of Present Illness History of Present Illness Date Seen by Provider: Jul 11, 2019 Time Seen by Provider: 07:14 Date of Admission History of Present Illness 83yo poor historian with hx of dementia presented to ED secondary to worsening SOB over the last 3 days. Pt is currently very confused and she has been having hallucinations through the night. She currently denies productive cough. I am consulted for pulmonary management. = Allergies and Home Medications Allergies Coded Allergies: lisinopril (Verified Allergy, Mild, SWELLING, COULDN'T BREATHE, 01/12/16) Home Medications Albuterol Sulfate 1 Puff Puff, 2 PUFF IH Q4H PRN for SHORTNESS OF BREATH, (Reported) 1 PUFF = 90 MCG Amlodipine Besylate 5 Mg Tablet, 5 MG PO DAILY, (Reported) Azithromycin 250 Mg Tablet, 250 MG PO DAILY Prescribed by: JACKIE ZAMAN on 02/11/19 1200 Cefdinir 300 Mg Capsule, 300 MG PO BID Prescribed by: JACKIE ZAMAN on 02/11/19 1200 Escitalopram Oxalate 10 Mg Tablet, 10 MG PO DAILY, (Reported) Levothyroxine Sodium 100 Mcg Tablet, 100 MCG PO DAILY, (Reported) Melatonin 5 Mg Tablet, 5 MG PO HS, (Reported) Omeprazole 20 Mg Capsule.dr, 20 MG PO BID, (Reported) Prednisone 20 Mg Tab, 20 MG PO DAILY@0700 Take 1 tab for 5 days, then 1/2 tab for 6 days and then stop Prescribed by: JACKIE ZAMAN on 02/11/19 1200 Telmisartan 40 Mg Tablet, 40 MG PO DAILY, (Reported) Past Cyyztde-Aclvwh-Bsohvl Hx Past Med/Social Hx: Reviewed Nursing Past Med/Soc Hx, Reviewed and Corrections made Patient Social History Alcohol Use: Denies Use Recreational Drug Use: No Smoking Status: Never a Smoker 2nd Hand Smoke Exposure: No Recent Foreign Travel: No Contact w/Someone Who Travel: No Recent Infectious Disease Expo: No Recent Hopitalizations: Yes Immunizations Up To Date Tetanus Booster (TDap): Less than 5yrs Date of Pneumonia Vaccine: Jul 10, 2016 Date of Influenza Vaccine: Mar 01, 2015 Seasonal Allergies Seasonal Allergies: No Past Medical History Surgeries: Yes (SURGERY/PINS ON RODDY FEET, BRAIN SX-BEIGN TUMOR, crainiotomy) Hysterectomy, Oophorectomy, Orthopedic Respiratory: No Currently Using CPAP: No Currently Using BIPAP: No Cardiac: Yes High Cholesterol, Hypertension Neurological: Yes (Fall with head bleed) Brain Tumor, Dementia, Traumatic Brain Injury 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 Disorders: No 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 Sexually Transmitted Disease: No HIV/AIDS: No Genitourinary: Yes Renal Failure, UTI-Chronic Gastrointestinal: Yes Gastroesophageal Reflux Musculoskeletal: Yes Arthritis Endocrine: Yes Hypothyroidsim, Diabetes, Non-Insulin dep HEENT: Yes Loss of Vision: Denies Hearing Impairment: Hard of Hearing Cancer: No Psychosocial: Yes (hallucinations, secondary to her dementia) Depression Integumentary: No Blood Disorders: No Family Medical History Cardiovascular disease DAUGHTER Diabetes mellitus DAUGHTER Respiratory disorder DAUGHTER Heart Disease, COPD Review of Systems Time Seen by Provider: 07:18 Sepsis Event Evaluation Height, Weight, BMI Height: 5'2.00" Weight: 111lbs. 3.0oz. 50.623781en; 17.01 BMI Method:Stated Exam Exam Vital Signs Date Time Temp Pulse Resp B/P (MAP) Pulse Ox O2 Delivery O2 Flow Rate FiO2 07/11/19 04:00 36.5 106 16 155/74 (101) 91 Room Air 07/11/19 02:25 95 Nasal Cannula 2.00 07/11/19 01:00 105 07/11/19 00:00 36.7 108 16 148/65 (92) 92 Room Air 07/10/19 22:31 94 Nasal Cannula 2.00 07/10/19 20:00 96 Nasal Cannula 2.00 07/10/19 20:00 36.4 106 16 127/52 (77) 94 Nasal Cannula 2.00 07/10/19 19:00 105 07/10/19 16:50 36.9 117 93 07/10/19 16:00 36.9 117 19 154/72 (99) 93 Nasal Cannula 2.00 07/10/19 14:45 93 Nasal Cannula 3.00 07/10/19 14:33 93 Nasal Cannula 2.00 07/10/19 13:40 36.7 116 23 143/48 (79) 93 Nasal Cannula 2.00 07/10/19 13:35 37.3 110 18 124/61 96 07/10/19 12:31 95 Nasal Cannula 2.00 07/10/19 12:12 89 Nasal Cannula 2.00 07/10/19 11:11 37.3 97 16 134/71 (92) 100 I & O 07/11/19 07:00 Intake Total 275 ml Balance 275 ml Height & Weight Height: 5'2.00" Weight: 111lbs. 3.0oz. 50.252284iu; 17.01 BMI Method:Stated General Appearance: Chronically ill, Mild Distress, Thin HEENT: PERRL/EOMI, Normal ENT Inspection, Pharynx Normal, Moist Mucous Membranes Neck: Full Range of Motion, Normal Inspection, Non Tender Respiratory: Chest Non Tender, No Respiratory Distress, Accessory Muscle Use, Crackles, Decreased Breath Sounds, Rales, Wheezing Cardiovascular: Regular Rate, Rhythm, No Edema, No Gallop, No JVD, No Murmur, Normal Peripheral Pulses Capillary Refill: Less Than 3 Seconds Extremity: Normal Capillary Refill, Normal Inspection, Normal Range of Motion, Non Tender, No Calf Tenderness, No Pedal Edema Neurologic/Psychiatric: Alert, No Motor/Sensory Deficits, Normal Mood/Affect, Disoriented Skin: Normal Color, Warm/Dry Lymphatic: No Adenopathy Results Lab Laboratory Tests 07/10/19 11:25 07/11/19 04:00 Assessment/Plan Assessment/Plan COPDAE -Duonebs -Pt will probably need home 02 upon discharge -pulmicort -steroids -- change to prednisone taper -Oxygen hx of Lung nodule with MLA -Last CT of chest 02/17 -Check CT of chest with contrast dementia with hallucinations through the night Hypothyroid hx Dementia KUSH TERRELL DO Jul 11, 2019 07:15
[2019-07-11] MEDS: SENNA W/DOCUSATE (SENOKOT S) TABLET PO SCH (07:43)
[2019-07-11] MEDS ORDERED: RT-BUDESONIDE NEBS 0.5 MG/2ML (PULMICORT) AMP INH SCH (08:00)
--- NOTE | 2019-07-11 08:00 | NUR ---
Pt refusing all medications at this time. Pt states that she only takes 3 sleeping pills at night and that she is not taking anything else.
--- NOTE | 2019-07-11 08:00 | NUR ---
Pt pulled out IV at this time. Bleeding stopped, will speak with Dr. Upton before restarting as this is the 4th IV, pt has pulled out.
[2019-07-11 08:13] VITALS: BP 177/83
--- NOTE | 2019-07-11 08:35 | NUR ---
Pt angry and trying to get out of bed. Pt cussing and hallucinating at this time. This RN and aide tried to reorient pt and were unsuccessful. Pt trying to cut telemetry with knife from breakfast tray. This RN took knife away and sitter placed in pt room.
--- NOTE | 2019-07-11 09:00 | NUR ---
Spoke with Pt's daughter, Franchesca, who states that she is going to try to get a friend to come up and sit with pt as she may calm down with someone she trusts. Daughter expresses her concerns over pt's anger and mood changes. Daughter states that she tried to get doctor Heurter to try some medications with the pt for mood control but he "refused to try anything". Daughter states that she does not know what to do and wonders if a penitentiary might be better even though that is not what she wants to do at this time. Daughter realizes that pt is worsening in her dementia and does want whats best for the pt.
--- NOTE | 2019-07-11 09:05 | Diagnostic Imaging Report ---
EXAMINATION: Chest radiograph, portable AP view. DATE: 07/11/2019 5:03 AM hours. INDICATION: 83-year-old female, COPD exacerbation. Shortness of breath. COMPARISON: July 10, 2019. FINDINGS: Heart size and mediastinal contours are unremarkable. There is no identified pneumothorax. There is no large pleural effusion. There is no identified focal airspace consolidation. IMPRESSION: No identified acute cardiopulmonary abnormality. Dictated by: Dictated on workstation # [id number]
[2019-07-11 11:35] VITALS: BP 178/75
--- NOTE | 2019-07-11 11:39 | Discharge Summary ---
Discharge Summary Hospital Course Was the Problem List Reviewed?: Yes Problems/Dx: (1) COPD exacerbation Status: Acute (2) Dehydration (3) Shortness of breath Status: Acute (4) DVT prophylaxis Status: Acute Hospital Course Date of Admission: Jul 10, 2019 at 12:22 Admission Diagnosis : Family Physician/Provider: Joann Donaldson MD Date of Discharge: 07/11/19 Discharge Diagnosis: AECOPD Hospital Course: Hospital Course: Pt had an uneventful hospital course. She was admitted, placed on IV steroids for COPD exacerbation, psych eval was required because of her aggression and unwilling to take medications as directed. She was assessed by senior behavioral unit and will complete her psych treatment there for aggression management. Labs and Pending Lab Test: Laboratory Tests 07/10/19 11:43: Blood Gas Puncture Site LT RADIAL, Blood Gas Patient Temperature 37.3, Arterial Blood pH 7.43, Arterial Blood Partial Pressure CO2 40, Arterial Blood Partial Pressure O2 67L, Arterial Blood HCO3 26, Arterial Blood Total CO2 27.3, Arterial Blood Oxygen Saturation 94, Arterial Blood Base Excess 2.2, Seven Test YES-POS, Blood Gas Ventilator Setting NO, Blood Gas Inspired Oxygen 2 07/11/19 04:00: White Blood Count 8.6, Red Blood Count 4.03L, Hemoglobin 12.2, Hematocrit 35, Mean Corpuscular Volume 88, Mean Corpuscular Hemoglobin 30, Mean Corpuscular Hemoglobin Concent 35, Red Cell Distribution Width 12.5, Platelet Count 284, Mean Platelet Volume 9.7, Neutrophils (%) (Auto) 91H, Lymphocytes (%) (Auto) 9L, Monocytes (%) (Auto) 1, Eosinophils (%) (Auto) 0, Basophils (%) (Auto) 0, Neutrophils # (Auto) 7.7, Lymphocytes # (Auto) 0.7L, Monocytes # (Auto) 0.1, Eosinophils # (Auto) 0.0, Basophils # (Auto) 0.0, Sodium Level 136, Potassium Level 3.7, Chloride Level 102, Carbon Dioxide Level 20L, Anion Gap 14, Blood Urea Nitrogen 34H, Creatinine 1.23, Estimat Glomerular Filtration Rate 42, BUN/Creatinine Ratio 28, Glucose Level 222H, Calcium Level 10.6H, Corrected Calcium 10.4H, Total Bilirubin 0.4, Aspartate Amino Transf (AST/SGOT) 18, Alanine Aminotransferase (ALT/SGPT) 12, Alkaline Phosphatase 73, Total Protein 7.5, Albumin 4.3 Microbiology 07/10/19 Influenza Types A,B Antigen (DARRYL) - Final, Complete Home Meds Active Cefdinir 300 Mg Capsule 300 Mg PO BID 5 Days Prednisone 20 Mg Tab 20 Mg PO DAILY@0700 11 Days Take 1 tab for 5 days, then 1/2 tab for 6 days and then stop Azithromycin 250 Mg Tablet 250 Mg PO DAILY 5 Days Reported Proair Hfa (Albuterol Sulfate) 1 Puff Puff 2 Puff IH Q4H PRN 1 PUFF = 90 MCG Levothyroxine Sodium 100 Mcg Tablet 100 Mcg PO DAILY Telmisartan 40 Mg Tablet 40 Mg PO DAILY Escitalopram Oxalate 10 Mg Tablet 10 Mg PO DAILY Omeprazole 20 Mg Capsule.dr 20 Mg PO BID Amlodipine Besylate 5 Mg Tablet 5 Mg PO DAILY Melatonin 5 Mg Tablet 5 Mg PO HS Assessment/Pt Instructions Admit to psych Discharge Planning: <30 minutes discharge planning Discharge Instructions Discharge Diet: No Restrictions Activity as Tolerated: Yes Discharge Physical Examination Vital Signs Vital Signs Date Time Temp Pulse Resp B/P (MAP) Pulse Ox O2 Delivery O2 Flow Rate FiO2 07/11/19 09:10 94 Room Air 07/11/19 08:13 37.5 128 24 177/83 (114) 07/11/19 02:25 2.00 General Appearance: WD/WN, Chronically ill, Mild Distress, Thin Respiratory: Lungs Clear Cardiovascular: Regular Rate, Rhythm Neurologic/Psychiatric: Alert, Disoriented Allergies: Coded Allergies: lisinopril (Verified Allergy, Mild, SWELLING, COULDN'T BREATHE, 01/12/16) Discharge Summary Date of Admission Jul 10, 2019 at 12:22 Date of Discharge Discharge Date: Jul 11, 2019 Admission Diagnosis Assessment: AECOPD Hypoxia (without chronic home O2 use) Hypothyroidism IBS Dementia Plan: IV steroids Nebs Home meds Discharge Diagnosis (1) COPD exacerbation Status: Acute (2) Dehydration (3) Shortness of breath Status: Acute (4) DVT prophylaxis Status: Acute Clinical Quality Measures DVT/VTE Risk/Contraindication: Risk Factor Score Per Nursin RFS Level Per Nursing on Admit: 4+=Very High JEEVAN VELIZ DO Jul 11, 2019 11:39
[2019-07-11] MEDS ORDERED: predniSONE 10 MG TAB PO SCH (12:00)
--- NOTE | 2019-07-11 12:12 | NUR ---
"RD ASSESSMENT PMHx: COPD; hypercholesterolemia; HTN; dementia; TBI; GERD; DM PT INTERACTION: Pt was awake and pleasant during consult for MST score. Note pt has dementia and gets easily confused, per chart review. Pt states current appetite is not good, and has been for some time. Note avg PO intake of 100% [id number], per chart review. Pt states following regular diet at home and has no issues with chewing/swallowing food. Pt states no recent issues with nausea/vomiting at this time. Pt states sometimes having issues with constipation/diarrhea. Note last BM was 07/10 and pt currently on bowel regimen of colace BID, per chart review. Pt states no recent wt changes. Note recent 18# wt loss x5mon, per chart review. This is significant wt loss at 18% x5mon. Upon visual exam, pt appears to be undernourished with visible signs of frail figure, and a BMI of 17.0. Given poor PO intake (prior to admit), wt hx and visual exam, pt meets criteria for malnutrition per ASPEN guidelines. ABNORMAL NUTRITION-RELATED LAB VALUES LOW: HIGH: BUN 34; glu 222; CA 10.6 Est. kcal needs: 1961-9005 kcal | 30-35 kcal/kg Est. Pro needs: 50-59 g Pro | 1.2-1.4 g Pro/kg PES STATEMENT: Inadequate oral intake (NI-2.1) related to loss of appetite as evidenced by pt interview. Underweight (NC-3.1) related to inadequate energy intake as evidenced by BMI 17.0 | pt interview | malnutrition INTERVENTION: Continue with current diet order of 2000mg Sodium diet. Plan of care is for pt to discharge today to behavioral health facility. Will continue to follow and reassess as pt needs and status change. MONITOR/EVALUATE: PO Intake; Plan of Care; Hydration Status; Weight Status; Lab Values Prashant Coulter, MS, RD, LD"
[2019-07-11] MEDS: ENOXAPARIN 30 MG/0.3 ML (LOVENOX) SYR SC SCH (13:40)
--- NOTE | 2019-07-11 14:13 | NUR ---
Pt demonstrating calm and pleasant demeanor. She shared about her daughter Franchesca Ch and close friend, Gallo Grewal. When asked who she would want to make decisions about her healthcare in the event she could not speak for herself, she initially said she would have to think about it because there were several people she trusted. When told she could list up to three people on an advanced directive, she said she wanted her daughter Franchesca listed, stating she trusted her. After writing Franchesca's name down she looked at me and said, "I think I should add Gallo, too. He will help Franchesca." The pt responded to open-ended questions regarding those she trusts to make healthcare decisions for her. She also volunteered she wishes to be an organ donor.
--- NOTE | 2019-07-11 14:52 | NUR ---
USING THE EXT MED HISTORY I UPDATED THE MED REC. PT WAS UNABLE TO ANSWER MY QUESTIONS AND I COULD NOT REACH HER FAMILY AT THIS TIME. I REMOVED CEFDINIR, AZITHROMYCIN AND PREDNISONE THESE WERE FROM HER PREVIOUS STAY. ACCORDING TO HER LAST VISIT AND THE EXT MED HISTORY NOTHING ELSE HAD BEEN CHANGED.
== END 2019-07-11 16:45 | disposition home or self-care (01) ==
LOC: EDUNIT# 11:11 → ER 11:12 → CSD 12:22
PROVIDERS: ADMIT Internal Medicine; ATTEND Internal Medicine
DX: J44.1 Chronic obstructive pulmonary disease with (acute) exacerbation (principal); E78.00 Pure hypercholesterolemia, unspecified; I10 Essential (primary) hypertension; M19.90 Unspecified osteoarthritis, unspecified site; E03.9 Hypothyroidism, unspecified; E11.9 Type 2 diabetes mellitus without complications; N39.0 Urinary tract infection, site not specified; E86.0 Dehydration; F32.9 Major depressive disorder, single episode, unspecified; Z88.8 Allergy status to other drugs, medicaments and biological substances; Z79.899 Other long term (current) drug therapy; Z90.710 Acquired absence of both cervix and uterus; Z83.6 Family history of other diseases of the respiratory system
CPT/HCPCS: 36415; 71045; 80053; 82805; 83605; 83880; 84484; 85025; 87040; 87804; 94640; 94644; 94760

== ENCOUNTER 2019-07-27 00:51 | Emergency (ER) | payer MEDICARE, OTHER, MEDICAID ==
[~2019-07-27] VITALS: Ht 157.4 cm; Wt 48.5 kg
[~2019-07-27 00:51] MED LIST changes: -OMEP-280 PO; +OMEP20CA18 PO; -TELM40TA3 PO; +TELM40TA6 PO
[2019-07-27 01:06] LABS: BASOPHILS % (AUTO) 0 % (0-10); EOSINOPHILS # (AUTO) 0.2 10^3/uL (0.0-0.3); EOSINOPHILS % (AUTO) 3 % (0-10); HEMATOCRIT 37 % (35-52); HEMOGLOBIN 12.2 G/DL (11.5-16.0); LYMPHOCYTES % (AUTO) 27 % (12-44); MEAN CORPUSCULAR HEMOGLOBIN 30 PG (25-34); MEAN CORPUSCULAR HGB CONC 33 G/DL (32-36); MEAN CORPUSCULAR VOLUME 90 FL (80-99); MEAN PLATELET VOLUME 9.1 FL (7.4-10.4); MONOCYTES # (AUTO) 0.5 X 10^3 (0.0-1.0); MONOCYTES % (AUTO) 6 % (0-12); NEUTROPHILS # (AUTO) 4.9 X 10^3 (1.8-7.8); NEUTROPHILS % (AUTO) 64 % (42-75); PLATELET COUNT 311 10^3/uL (130-400); RED CELL DISTRIBUTION WIDTH 12.5 % (10.0-14.5); WHITE BLOOD COUNT 7.6 10^3/uL (4.3-11.0)
[2019-07-27 01:13] LABS: BILIRUBIN,URINE NEGATIVE (NEGATIVE); CLARITY,URINE CLEAR; COLOR,URINE YELLOW; GLUCOSE, URINE (UA) NEGATIVE (NEGATIVE); KETONES,URINE NEGATIVE (NEGATIVE); LEUKOCYTE ESTERASE ,URINE NEGATIVE (NEGATIVE); NITRITE,URINE NEGATIVE (NEGATIVE); PROTEIN,URINE NEGATIVE (NEGATIVE)
[2019-07-27 01:21] LABS: BACTERIA,URINE NEGATIVE /HPF; SQUAMOUS EPITHELIAL CELL,UR 0-2 /HPF
[2019-07-27 01:24] LABS: ALANINE AMINOTRANSFERASE 15 U/L (0-55); ALBUMIN 4.5 GM/DL (3.2-4.5); ALKALINE PHOSPHATASE 99 U/L (40-136); BILIRUBIN,TOTAL 0.2 MG/DL (0.1-1.0); BUN/CREATININE RATIO 12; CARBON DIOXIDE 21 MMOL/L (21-32); CHLORIDE 103 MMOL/L (98-107); CREATININE SERUM 1.32 MG/DL (0.60-1.30); GFR ESTIMATED 38; GLUCOSE 93 MG/DL (70-105); MAGNESIUM 1.9 MG/DL (1.6-2.4); POTASSIUM 4.1 MMOL/L (3.6-5.0); SODIUM 137 MMOL/L (135-145); TOTAL PROTEIN 8.2 GM/DL (6.4-8.2)
[2019-07-27 01:46] LABS: FREE T4 (FREE THYROXINE) 0.93 NG/DL (0.70-1.48)
--- NOTE | 2019-07-27 02:00 | NUR ---
BOAZ REAVES REPORTS TO THE ER TO CHECK ON PATIENT. FOUND PATIENT WALKING DOWN THE ROAD WITH HER DOG TIED TO AN EXTENTION CORD, PATIENT WAS DISHEVELED, WEARING 2 DIFFERENT SHOES AND CONFUSED ABOUT WHERE SHE WAS GOING OR WHERE SHE LIVED. BOAZ STATED HE CALLED THE HOTLINE TO REPORT SITUATION. LEFT A PHONE NUMBER TO CALL SO HE COULD BE ADVISED OF PATIENT STATUS IF SHE IS DISCHARGED HOME. STATES HE WANTS TO GO BY THE HOUSE TO ENSURE PATIENT IS NOT ALONE.
[2019-07-27] MEDS ORDERED: NS IV 500 ML 500 ML IV ONE (02:06)
--- NOTE | 2019-07-27 03:00 | NUR ---
FREQUENT MONITORING MAINTAINED FOR THIS PATIENT, WITHIN LINE OF SIGHT. PATIENT HAS CALL LIGHT IN BED WITH HER AND AGREES TO USE IT. HAS DEMONSTRATED ITS USE MULTIPLE TIMES. CURRENTLY RESTING QUIETLY IN BED WITH BILATERAL RAILS UP. REORIENTATION REQUIRED PATIENT BELIEVES SHE CAN GO HOME. PATIENT VERBALIZES TO THIS RN THAT SHE DOES NOT LIVE ALONE, THAT SHE WAS DRIVING TONIGHT WHEN THE SHERRIF FOUND HER. SITUATION DISCUSSED, HOWEVER IT DOES NOT APPEAR PATIENT COMPREHENDS SITUATION. DR GUILLAUME SPOKE WITH PATIENTS DAUGHTER EARLIER TONJANELLE AND SHE IS UNABLE TO COME PICK PATIENT UP OR STAY WITH HER AT HER HOME, STATING SHE HAS NO VEHICLE. CURRENTLY THIS PATIENT HAS A PHARMACY RESIDENT NAMED JEMAL AND WAS CALLED TONIGHT BY DR GUILLAUME.
--- NOTE | 2019-07-27 04:00 | NUR ---
WITH DR GUILLAUME'S PERMISSION ALL MONITORING CORDS ARE REMOVED FROM THIS PATIENT WELL THE IV. PATIENT IS LAYING IN BED WITH CALL LIGHT IN REACH WITHIN LINE OF SIGHT. MONITORING MAINTIANED. PATIENT TURNS AND HAS BEEN REPOSTIONING SELF IN BED, CURRENTLY LAYING ON HER RIGHT SIDE.
--- NOTE | 2019-07-27 04:03 | ED General ---
General Chief Complaint: Altered Mental Status Stated Complaint: AMS Nursing Triage Note: WAS FOUND BY [facility] DEPT WALKING WITH HER DOG DOWN THE ROAD TONIGHT. HX OF DEMENTIA. TOLD OFFICER SHE DID NOT RECOGNIZE THINGS IN HER HOUSE. SPOKE TO HER DAUGHTER OLINDA ON THE PHONE WHO EXPLAINS PATIENT WAS RELEASED FROM [facility] LAST WEEK AND THAT THEY ARE IN THE PROCESS OF FINDING CARE FOR HER OVENIGHT TO GO ALONG WITH HER DAY TIME HELP SHE HAS COMING IN. Nursing Sepsis Screen: No Definite Risk Source of Information: Patient Exam Limitations: No Limitations History of Present Illness Date Seen by Provider: Jul 27, 2019 Time Seen by Provider: 00:52 Initial Comments This 83-year-old woman is brought to the emergency via EMS after being found by an officer from the [facility] wandering the streets with her dog confused. She had her dog leash and with an extension cord wrapped around his neck. She is dressed in pajamas and a red blazer jacket. When brought to her home she was confused thinking that it was not her home but her things were ineffective. She is known to have dementia and has in-home care providers during the day. However, she lives alone and does not have any care providers at night. Per discussion between patient's daughter, Svetlana ChSheriff's D epartment, there are to be discussions with her correctional counselor/case manager later today regarding her living situation. Patient's daughter states she does not have personal transportation and therefore cannot go to the patient's home to stay with her tonight. Patient denies feeling ill in any way. Allergies and Home Medications Allergies Coded Allergies: lisinopril (Verified Allergy, Mild, SWELLING, COULDN'T BREATHE, 07/27/19) Home Medications Albuterol Sulfate 1 Puff Puff, 2 PUFF IH Q4H PRN for SHORTNESS OF BREATH, (Reported) 1 PUFF = 90 MCG Amlodipine Besylate 5 Mg Tablet, 5 MG PO DAILY, (Reported) Escitalopram Oxalate 10 Mg Tablet, 10 MG PO DAILY, (Reported) Levothyroxine Sodium 100 Mcg Tablet, 100 MCG PO DAILY, (Reported) Melatonin 5 Mg Tablet, 5 MG PO HS, (Reported) Omeprazole 20 Mg Capsule.dr, 20 MG PO BID, (Reported) Telmisartan 40 Mg Tablet, 40 MG PO DAILY, (Reported) Patient Home Medication List Home Medication List Reviewed: Yes Review of Systems Review of Systems Constitutional: no symptoms reported EENTM: no symptoms reported Respiratory: no symptoms reported Cardiovascular: no symptoms reported Gastrointestinal: no symptoms reported Genitourinary: no symptoms reported : No Musculoskeletal: no symptoms reported Skin: no symptoms reported Psychiatric/Neurological: See HPI Hematologic/Lymphatic: No Symptoms Reported Immunological/Allergic: no symptoms reported Past Mxudbcq-Puhvcy-Uzauia Hx Past Med/Social Hx: Reviewed Nursing Past Med/Soc Hx Patient Social History Alcohol Use: Denies Use Recreational Drug Use: No 2nd Hand Smoke Exposure: No Recent Foreign Travel: No Contact w/Someone Who Travel: No Recent Infectious Disease Expo: No Recent Hopitalizations: Yes Physical Abuse: No Sexual Abuse: No Mistreated: No Fear: No Immunizations Up To Date Tetanus Booster (TDap): Less than 5yrs Date of Pneumonia Vaccine: Jul 10, 2016 Date of Influenza Vaccine: Mar 01, 2015 Seasonal Allergies Seasonal Allergies: No Past Medical History Surgeries: Yes (SURGERY/PINS ON RODDY FEET, BRAIN SX-BEIGN TUMOR, crainiotomy) Hysterectomy, Oophorectomy, Orthopedic Respiratory: No Currently Using CPAP: No Currently Using BIPAP: No Cardiac: Yes High Cholesterol, Hypertension Neurological: Yes (Fall with head bleed) Brain Tumor, Dementia, Traumatic Brain Injury 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 Disorders: No Female 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 Disorders: Denies 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: Hysterectomy Sexually Transmitted Disease: No HIV/AIDS: No Genitourinary: Yes Renal Failure, UTI-Chronic Gastrointestinal: Yes Gastroesophageal Reflux Musculoskeletal: Yes Arthritis Endocrine: Yes Hypothyroidsim, Diabetes, Non-Insulin dep HEENT: Yes Loss of Vision: Denies Hearing Impairment: Hard of Hearing Cancer: No Psychosocial: Yes (hallucinations, secondary to her dementia) Depression Integumentary: No Blood Disorders: No Family Medical History Reviewed Nursing Family Hx Cardiovascular disease DAUGHTER Diabetes mellitus DAUGHTER Respiratory disorder DAUGHTER Heart Disease, COPD Physical Exam Vital Signs Vital Signs - First Documented 07/27/19 07/27/19 00:52 10:00 Temp 36.7 Pulse 90 Resp 20 B/P (MAP) 189/98 (128) Pulse Ox 94 O2 Delivery Room Air Capillary Refill : Greater Than 3 Seconds Height, Weight, BMI Height: 5'2.00" Weight: 111lbs. 3.0oz. [id number]; 19.00 BMI Method:Stated General Appearance: No Apparent Distress, WD/WN, Thin HEENT: PERRL/EOMI, Normal ENT Inspection, Pharynx Normal Neck: Normal Inspection Respiratory: Lungs Clear, Normal Breath Sounds, No Accessory Muscle Use Cardiovascular: Regular Rate, Rhythm, No Edema, No Murmur, Normal Peripheral Pulses Gastrointestinal: Normal Bowel Sounds, Non Tender, Soft Extremity: Normal Inspection, Non Tender, No Pedal Edema Neurologic/Psychiatric: Alert, No Motor/Sensory Deficits, Normal Mood/Affect, contracts specialist II-XII Norm as Tested, Other (disoriented to place, month, and year. Oriented to person and age.) Skin: Normal Color, Warm/Dry Progress/Results/Core Measures Suspected Sepsis Recent Fever Within 48 Hours: No Infection Criteria Present: None New/Unexplained Altered Menta: Yes Sepsis Screen: No Definite Risk SIRS Temperature: Pulse: 90 Respiratory Rate: 20 Laboratory Tests 07/27/19 00:58: White Blood Count 7.6 Blood Pressure 189 /98 Mean: 128 Laboratory Tests 07/27/19 00:58: Creatinine 1.32H, Platelet Count 311, Total Bilirubin 0.2 Results/Orders Lab Results Laboratory Tests Test 07/27/19 00:58 07/27/19 01:09 Range/Units White Blood Count 7.6 4.3-11.0 10^3/uL Red Blood Count 4.06 L 4.35-5.85 10^6/uL Hemoglobin 12.2 11.5-16.0 G/DL Hematocrit 37 35-52 % Mean Corpuscular Volume 90 80-99 FL Mean Corpuscular Hemoglobin 30 25-34 PG Mean Corpuscular Hemoglobin Concent 33 32-36 G/DL Red Cell Distribution Width 12.5 10.0-14.5 % Platelet Count 311 130-400 10^3/uL Mean Platelet Volume 9.1 7.4-10.4 FL Neutrophils (%) (Auto) 64 42-75 % Lymphocytes (%) (Auto) 27 12-44 % Monocytes (%) (Auto) 6 0-12 % Eosinophils (%) (Auto) 3 0-10 % Basophils (%) (Auto) 0 0-10 % Neutrophils # (Auto) 4.9 1.8-7.8 X 10^3 Lymphocytes # (Auto) 2.0 1.0-4.0 X 10^3 Monocytes # (Auto) 0.5 0.0-1.0 X 10^3 Eosinophils # (Auto) 0.2 0.0-0.3 10^3/uL Basophils # (Auto) 0.0 0.0-0.1 10^3/uL Sodium Level 137 135-145 MMOL/L Potassium Level 4.1 3.6-5.0 MMOL/L Chloride Level 103 98-107 MMOL/L Carbon Dioxide Level 21 21-32 MMOL/L Anion Gap 13 5-14 MMOL/L Blood Urea Nitrogen 16 7-18 MG/DL Creatinine 1.32 H 0.60-1.30 MG/DL Estimat Glomerular Filtration Rate 38 BUN/Creatinine Ratio 12 Glucose Level 93 70-105 MG/DL Calcium Level 10.0 8.5-10.1 MG/DL Corrected Calcium 9.6 8.5-10.1 MG/DL Magnesium Level 1.9 1.6-2.4 MG/DL Total Bilirubin 0.2 0.1-1.0 MG/DL Aspartate Amino Transf (AST/SGOT) 24 5-34 U/L Alanine Aminotransferase (ALT/SGPT) 15 0-55 U/L Alkaline Phosphatase 99 40-136 U/L Total Protein 8.2 6.4-8.2 GM/DL Albumin 4.5 3.2-4.5 GM/DL Thyroid Stimulating Hormone (TSH) 2.76 0.35-4.94 UIU/ML Free Thyroxine 0.93 0.70-1.48 NG/DL Serum Alcohol < 10 <10 MG/DL Urine Color YELLOW Urine Clarity CLEAR Urine pH 6.0 5-9 Urine Specific [place] <=1.005 1.016-1.022 Urine Protein NEGATIVE NEGATIVE Urine Glucose (UA) NEGATIVE NEGATIVE Urine Ketones NEGATIVE NEGATIVE Urine Nitrite NEGATIVE NEGATIVE Urine Bilirubin NEGATIVE NEGATIVE Urine Urobilinogen 0.2 < = 1.0 MG/DL Urine Leukocyte Esterase NEGATIVE NEGATIVE Urine RBC (Auto) NEGATIVE NEGATIVE Urine RBC NONE /HPF Urine WBC NONE /HPF Urine Squamous Epithelial Cells 0-2 /HPF Urine Crystals NONE /LPF Urine Bacteria NEGATIVE /HPF Urine Casts NONE /LPF Urine Mucus NEGATIVE /LPF Urine Culture Indicated NO My Orders Orders - ÓSCAR HOWARD MD Ed Iv/Invasive Line Start (07/27/19 00:59) Alcohol (07/27/19 00:59) Cbc With Automated Diff (07/27/19 00:59) Comprehensive Metabolic Panel (07/27/19 00:59) Magnesium (07/27/19 00:59) Ua Culture If Indicated (07/27/19 00:59) Thyroid Stimulating Hormone (07/27/19 01:00) Free T4 (Free Thyroxine) (07/27/19 01:00) Ns Iv 500 Ml (Sodium Chloride 0.9%) (07/27/19 02:06) Medications Given in ED Vital Signs/I&O 07/27/19 10:00 Temp 36.7 Pulse 84 Resp 18 B/P (MAP) 140/67 (128) Pulse Ox 96 O2 Delivery Room Air Capillary Refill : Greater Than 3 Seconds Blood Pressure Mean: 128 Progress Note #1: Time: 05:38 Progress Note Workup was unremarkable. Patient is alert and ambulatory. She has no complaints. I discussed the case with the [facility] and patient's daughter, Svetlana Ch. Svetlana states she has no transportation and therefore cannot go to the patient's home to provide support. She did provide me with the assistant case manager contact information. Destinee is the correctional counselor/case manager and was called at [phone]. I left a message at this number. I am hopeful that to the correctional counselor/case manager can help arrange transportation home when a caregiver is available between 8:00 and 9:00. This is the usual arrival time of the caregiver for her Svetlana. The officer from the [facility] already filed a DCF report. Patient does not meet admission criteria but currently does not have a safe place to stay or way to get there. Daughter seems fairly resistant to providing support. Patient's creatinine was slightly bumped. A NS 500 ml bolus was given. Progress Note #2: Progress Note Patient was eventually discharge into the care of Destinee. See nursing notes. Departure Impression Primary Impression: Dementia Qualified Codes: F03.91 - Unspecified dementia with behavioral disturbance Additional Impression: Disoriented Disposition: 01 HOME, SELF-CARE Condition: Improved Departure-Patient Inst. Referrals: ATILIO LEONARDO MD (PCP/Family) Primary Care Physician Patient Instructions: Dementia (DC) Add. Discharge Instructions: Follow-up with your primary care provider soon as possible. Work with your correctional counselor/case manager to develop a safety plan and safely living arrangements. Return to care if there are further medical problems or other concerns. All discharge instructions reviewed with patient and/or family. Voiced unders tanding. ÓSCAR HOWARD MD Jul 27, 2019 04:03
--- NOTE | 2019-07-27 04:45 | NUR ---
PLACED CALL TO JEMAL PATIENT S MATLAB DEVELOPER ([phone]) HOWEVER STILL WENT TO VOICEMAIL.
--- NOTE | 2019-07-27 07:21 | NUR ---
Attempted to call pt's daughter, Fraheen Ch, left message to call ED.
--- NOTE | 2019-07-27 08:10 | NUR ---
Left message for pt's correctional case managerDestinee.
--- NOTE | 2019-07-27 08:15 | NUR ---
Spoke to pt's levee superintendent, Destinee. Given number of DPOA, Gallo Grewal.
--- NOTE | 2019-07-27 08:20 | NUR ---
Spoke to Gallo Grewal. Gallo on way to ED to strip picker pt. Gallo and Destinee to meet today regarding 24 hour care for pt.
--- NOTE | 2019-07-27 08:36 | NUR ---
nutritional services called for breakfast tray
--- NOTE | 2019-07-27 08:45 | NUR ---
Pt taken breakfast tray at this time.
--- NOTE | 2019-07-27 09:11 | NUR ---
Adult protective services in room with pt and Destinee pt's caregiver.
[2019-07-27 10:00] VITALS: BP 140/67
--- NOTE | 2019-07-27 10:01 | NUR ---
attempted to call Gallo twice regarding transportaion
--- NOTE | 2019-07-27 10:11 | NUR ---
Pt discharged to home with, Destinee, obstetrics scrub nurse.
== END 2019-07-27 10:00 | disposition home or self-care (01) ==
LOC: EDUNIT# 00:51 → ER 00:52
DX: F03.90 Unspecified dementia, unspecified severity, without behavioral disturbance, psychotic disturbance, mood disturbance, and anxiety (principal); I10 Essential (primary) hypertension; K21.9 Gastro-esophageal reflux disease without esophagitis; E03.9 Hypothyroidism, unspecified; E11.9 Type 2 diabetes mellitus without complications; F32.9 Major depressive disorder, single episode, unspecified; Z86.011 Personal history of benign neoplasm of the brain; Z88.8 Allergy status to other drugs, medicaments and biological substances; Z82.49 Family history of ischemic heart disease and other diseases of the circulatory system
CPT/HCPCS: 36415; 80053; 80320; 81000; 83735; 84439; 84443; 85025; 96360; 99283

== ENCOUNTER 2019-12-27 09:59 | Emergency (ER) | payer MEDICARE, OTHER, MEDICAID ==
[~2019-12-27] VITALS: Ht 162 cm; Wt 68.0 kg
--- NOTE | 2019-12-27 10:33 | ED General ---
General Stated Complaint: COUGH;CONGESTION History of Present Illness Date Seen by Provider: Dec 27, 2019 Time Seen by Provider: 10:33 Initial Comments 84-year-old female sent in by EMS due to cough congestion and concerns for low oxygen. History of present illness is limited to as patient has dementia does not have any complaints. Patient was initially supposed to present to [facility] where her time her care provider was but accidentally brought here. No other history of present illness is available Allergies and Home Medications Allergies Coded Allergies: lisinopril (Verified Allergy, Mild, SWELLING, COULDN'T BREATHE, 07/27/19) Home Medications Albuterol Sulfate 1 Puff Puff, 2 PUFF IH Q4H PRN for SHORTNESS OF BREATH, (Reported) 1 PUFF = 90 MCG Amlodipine Besylate 5 Mg Tablet, 5 MG PO DAILY, (Reported) Escitalopram Oxalate 10 Mg Tablet, 10 MG PO DAILY, (Reported) Levothyroxine Sodium 100 Mcg Tablet, 100 MCG PO DAILY, (Reported) Melatonin 5 Mg Tablet, 5 MG PO HS, (Reported) Omeprazole 20 Mg Capsule.dr, 20 MG PO BID, (Reported) Telmisartan 40 Mg Tablet, 40 MG PO DAILY, (Reported) Patient Home Medication List Home Medication List Reviewed: Yes Review of Systems Review of Systems Constitutional: no symptoms reported EENTM: no symptoms reported Respiratory: cough, short of breath Cardiovascular: no symptoms reported Gastrointestinal: no symptoms reported Genitourinary: no symptoms reported Psychiatric/Neurological: Other (dementia) Review of systems limited based on patient's history Past Kttyetn-Wgpanm-Micogd Hx Past Med/Social Hx: Reviewed Nursing Past Med/Soc Hx Patient Social History 2nd Hand Smoke Exposure: No Recent Hopitalizations: Yes Immunizations Up To Date Tetanus Booster (TDap): Less than 5yrs Date of Pneumonia Vaccine: Jul 10, 2016 Date of Influenza Vaccine: Mar 01, 2015 Seasonal Allergies Seasonal Allergies: No Past Medical History Surgeries: Yes (SURGERY/PINS ON RODDY FEET, BRAIN SX-BEIGN TUMOR, crainiotomy) Hysterectomy, Oophorectomy, Orthopedic Respiratory: No Currently Using CPAP: No Currently Using BIPAP: No Cardiac: Yes High Cholesterol, Hypertension Neurological: Yes (Fall with head bleed) Brain Tumor, Dementia, Traumatic Brain Injury 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 Disorders: No Female 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 Disorders: Denies 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 Sexually Transmitted Disease: No HIV/AIDS: No Genitourinary: Yes Renal Failure, UTI-Chronic Gastrointestinal: Yes Gastroesophageal Reflux Musculoskeletal: Yes Arthritis Endocrine: Yes Hypothyroidsim, Diabetes, Non-Insulin dep HEENT: Yes Loss of Vision: Denies Hearing Impairment: Hard of Hearing Cancer: No Psychosocial: Yes (hallucinations, secondary to her dementia) Depression Integumentary: No Blood Disorders: No Family Medical History Cardiovascular disease DAUGHTER Diabetes mellitus DAUGHTER Respiratory disorder DAUGHTER Heart Disease, COPD Physical Exam Vital Signs Vital Signs - First Documented 12/27/19 10:10 Temp 35.7 Pulse 103 Resp 18 B/P (MAP) 162/87 (112) Pulse Ox 98 O2 Delivery Nasal Cannula O2 Flow Rate 2.00 Capillary Refill : Height, Weight, BMI Height: 5'2.00" Weight: 111lbs. 3.0oz. [id number]; 19.00 BMI Method:Stated General Appearance: No Apparent Distress, WD/WN Neck: Normal Inspection Respiratory: Lungs Clear, Normal Breath Sounds Cardiovascular: Regular Rate, Rhythm Extremity: Normal Capillary Refill, Normal Range of Motion Neurologic/Psychiatric: Other (patient with dementia, at baseline) Skin: Normal Color, Warm/Dry Progress/Results/Core Measures Suspected Sepsis SIRS Temperature: Pulse: Respiratory Rate: Laboratory Tests 12/27/19 10:38: White Blood Count 8.0 Blood Pressure / Mean: Laboratory Tests 12/27/19 10:38: Creatinine 1.10, Platelet Count 270, Total Bilirubin 0.4 Results/Orders Lab Results Laboratory Tests Test 12/27/19 10:38 Range/Units White Blood Count 8.0 4.3-11.0 10^3/uL Red Blood Count 4.38 4.35-5.85 10^6/uL Hemoglobin 12.7 11.5-16.0 G/DL Hematocrit 39 35-52 % Mean Corpuscular Volume 88 80-99 FL Mean Corpuscular Hemoglobin 29 25-34 PG Mean Corpuscular Hemoglobin Concent 33 32-36 G/DL Red Cell Distribution Width 13.5 10.0-14.5 % Platelet Count 270 130-400 10^3/uL Mean Platelet Volume 10.2 7.4-10.4 FL Neutrophils (%) (Auto) 71 42-75 % Lymphocytes (%) (Auto) 12 12-44 % Monocytes (%) (Auto) 11 0-12 % Eosinophils (%) (Auto) 6 0-10 % Basophils (%) (Auto) 0 0-10 % Neutrophils # (Auto) 5.7 1.8-7.8 X 10^3 Lymphocytes # (Auto) 0.9 L 1.0-4.0 X 10^3 Monocytes # (Auto) 0.9 0.0-1.0 X 10^3 Eosinophils # (Auto) 0.5 H 0.0-0.3 10^3/uL Basophils # (Auto) 0.0 0.0-0.1 10^3/uL Sodium Level 137 135-145 MMOL/L Potassium Level 4.1 3.6-5.0 MMOL/L Chloride Level 100 98-107 MMOL/L Carbon Dioxide Level 21 21-32 MMOL/L Anion Gap 16 H 5-14 MMOL/L Blood Urea Nitrogen 23 H 7-18 MG/DL Creatinine 1.10 0.60-1.30 MG/DL Estimat Glomerular Filtration Rate 47 BUN/Creatinine Ratio 21 Glucose Level 287 H 70-105 MG/DL Calcium Level 9.5 8.5-10.1 MG/DL Corrected Calcium 9.4 8.5-10.1 MG/DL Total Bilirubin 0.4 0.1-1.0 MG/DL Aspartate Amino Transf (AST/SGOT) 28 5-34 U/L Alanine Aminotransferase (ALT/SGPT) 14 0-55 U/L Alkaline Phosphatase 105 40-136 U/L Troponin I < 0.028 <0.028 NG/ML B-Type Natriuretic Peptide 141.3 H <100.0 PG/ML Total Protein 8.2 6.4-8.2 GM/DL Albumin 4.1 3.2-4.5 GM/DL My Orders Orders - JOSUE,KENDALL L DO Chest 1 View, Ap/Pa Only (12/27/19 11:05) BNP (12/27/19 11:05) Cbc With Automated Diff (12/27/19 11:05) Comprehensive Metabolic Panel (12/27/19 11:05) Troponin I (12/27/19 11:05) Albuterol/Ipra Inhalation Soln (Duoneb I (12/27/19 11:15) Svn Small Volume Nebulizer (12/27/19 11:05) Rx-Albuterol Inhaler (Rx-Ventolin Hfa In (12/27/19 12:08) Methylprednisolone Sod Succ (Solu-Medrol (12/27/19 12:30) Vital Signs/I&O 12/27/19 10:10 Temp 35.7 Pulse 103 Resp 18 B/P (MAP) 162/87 (112) Pulse Ox 98 O2 Delivery Nasal Cannula O2 Flow Rate 2.00 Capillary Refill : Progress Note : Time: 12:57 Progress Note Patient's oxygen saturations stayed in the mid 90s on room air. Review of [facility] home chart appears patients normally on 2 L oxygen. She has no significant physical findings. I will treat her for COPD due to her severe COPD history. Patient is stable, will be started on azithromycin and [facility] Departure Impression Primary Impression: COPD (chronic obstructive pulmonary disease) with acute bronchitis Disposition: 01 HOME, SELF-CARE Condition: Stable Departure-Patient Inst. Referrals: ATILIO LEONARDO MD (PCP/Family) Primary Care Physician Patient Instructions: Acute Bronchitis, Chronic Obstructive Pulmonary Disease (COPD) (DC), Pneumonia, Adult (DC) Scripts Azithromycin (Azithromycin) 250 Mg Tablet 250 MG PO UD, #6 TAB TAKE 2 TABLETS ON DAY ONE THEN TAKE 1 TABLET DAILY FOR FOUR MORE DAYS Prov: KENDALL JOSUE DO 12/27/19 KENDALL JOSUE DO Dec 27, 2019 10:33
[2019-12-27 11:12] LABS: BASOPHILS % (AUTO) 0 % (0-10); EOSINOPHILS # (AUTO) 0.5 10^3/uL (0.0-0.3); EOSINOPHILS % (AUTO) 6 % (0-10); HEMATOCRIT 39 % (35-52); HEMOGLOBIN 12.7 G/DL (11.5-16.0); LYMPHOCYTES # (AUTO) 0.9 X 10^3 (1.0-4.0); LYMPHOCYTES % (AUTO) 12 % (12-44); MEAN CORPUSCULAR HEMOGLOBIN 29 PG (25-34); MEAN CORPUSCULAR HGB CONC 33 G/DL (32-36); MEAN CORPUSCULAR VOLUME 88 FL (80-99); MEAN PLATELET VOLUME 10.2 FL (7.4-10.4); MONOCYTES # (AUTO) 0.9 X 10^3 (0.0-1.0); MONOCYTES % (AUTO) 11 % (0-12); NEUTROPHILS # (AUTO) 5.7 X 10^3 (1.8-7.8); NEUTROPHILS % (AUTO) 71 % (42-75); PLATELET COUNT 270 10^3/uL (130-400); RED CELL DISTRIBUTION WIDTH 13.5 % (10.0-14.5)
[2019-12-27] MEDS ORDERED: RT-ALBUTEROL/IPRATROPIUM 3 ML (DUONEB) VIAL INH ONE (11:15)
[2019-12-27 11:19] LABS: ALBUMIN 4.1 GM/DL (3.2-4.5); CHLORIDE 100 MMOL/L (98-107); SODIUM 137 MMOL/L (135-145)
[2019-12-27 11:20] LABS: CALCIUM 9.5 MG/DL (8.5-10.1)
[2019-12-27 11:21] LABS: GLUCOSE 287 MG/DL (70-105); POTASSIUM 4.1 MMOL/L (3.6-5.0); TOTAL PROTEIN 8.2 GM/DL (6.4-8.2)
[2019-12-27 11:22] LABS: CARBON DIOXIDE 21 MMOL/L (21-32)
[2019-12-27 11:23] LABS: BILIRUBIN,TOTAL 0.4 MG/DL (0.1-1.0)
[2019-12-27 11:25] LABS: ALKALINE PHOSPHATASE 105 U/L (40-136); GFR ESTIMATED 47
[2019-12-27 11:26] LABS: BUN/CREATININE RATIO 21
[2019-12-27 11:28] LABS: ALANINE AMINOTRANSFERASE 14 U/L (0-55)
[2019-12-27] MEDS ORDERED: RX-ALBUTEROL INHALER 8 GM HFA (VENTOLIN) IH STA (12:08)
--- NOTE | 2019-12-27 12:09 | NUR ---
PT PULLED OUT IV WHILE THIS NURSE IN ROOM WITH ANOTHER PT. PRESSURE AND DRESSING PLACED ON IV SITE. BLEEDING CONTROLLED.
[2019-12-27] MEDS ORDERED: methylPREDNISolone 125 MG (Solu-MEDROL) VIAL IV STA (12:30)
[2019-12-27] MEDS ORDERED: AZIT250T12 PO (12:58)
--- NOTE | 2019-12-27 13:10 | NUR ---
REPORT TO [facility] AT THIS TIME. STAFF INFORMED PT HAS NEW PRESCRIPTION TO BE FILLED AND TRANSPORTATION BACK TO [facility] NEEDS TO BE ARRANGED.
[2019-12-27 13:30] VITALS: BP 151/78
--- NOTE | 2019-12-28 08:13 | Diagnostic Imaging Report ---
EXAMINATION: Portable erect AP chest at 1135 PM INDICATION: Cough and congestion The heart size is within normal limits and stable when compared to 07/11/2019. The central pulmonary vascularity on the right does seem more prominent than on the prior exam but the patient is slightly rotated on this study and most likely that accounts for this discrepancy. The lungs are generally clear. There is still no sign of failure, pneumonia or pleural effusion. The mediastinum is not widened. The osseous structures are intact. IMPRESSION: Allowing for the rotation of the patient, there is no evidence for an acute cardiopulmonary abnormality. Dictated by: Dictated on workstation # [id number]
== END 2019-12-27 13:30 | disposition home or self-care (01) ==
LOC: EDUNIT# 09:59 → ER 10:01
DX: J44.0 Chronic obstructive pulmonary disease with (acute) lower respiratory infection (principal); J20.9 Acute bronchitis, unspecified; I10 Essential (primary) hypertension; K21.9 Gastro-esophageal reflux disease without esophagitis; E03.9 Hypothyroidism, unspecified; E11.9 Type 2 diabetes mellitus without complications; F32.9 Major depressive disorder, single episode, unspecified; Z82.49 Family history of ischemic heart disease and other diseases of the circulatory system; Z88.8 Allergy status to other drugs, medicaments and biological substances; Z87.820 Personal history of traumatic brain injury; Z79.890 Hormone replacement therapy; Z99.81 Dependence on supplemental oxygen
CPT/HCPCS: 36415; 71045; 80053; 83880; 84484; 85025

== ENCOUNTER → 2020-06-09 | Outpatient (CLI) | payer MEDICARE, OTHER, MEDICAID ==
[~2020-06-09] MED LIST changes: +AMLO-250 PO; -AMLO5TAB9 PO
[2020-06-09 12:51] LABS: BILIRUBIN,URINE NEGATIVE (NEGATIVE); CLARITY,URINE CLEAR; COLOR,URINE YELLOW; GLUCOSE, URINE (UA) NEGATIVE (NEGATIVE); KETONES,URINE NEGATIVE (NEGATIVE); LEUKOCYTE ESTERASE ,URINE NEGATIVE (NEGATIVE); NITRITE,URINE NEGATIVE (NEGATIVE); PH,URINE 6.5 (5-9); PROTEIN,URINE NEGATIVE (NEGATIVE)
[2020-06-09 13:55] LABS: BACTERIA,URINE TRACE /HPF
== END ==
LOC: LABNPT 12:42
PROVIDERS: ATTEND Urology
DX: Z01.89 Encounter for other specified special examinations (principal)
CPT/HCPCS: 81000

== ENCOUNTER → 2020-08-31 | Outpatient (CLI) | payer MEDICARE, OTHER, MEDICAID ==
[~2020-08-31] MED LIST changes: +ESCI-2 PO; -ESCI10TA55 PO
[2020-08-31 19:38] LABS: BILIRUBIN,URINE NEGATIVE (NEGATIVE); CLARITY,URINE CLEAR; COLOR,URINE YELLOW; GLUCOSE, URINE (UA) NEGATIVE (NEGATIVE); KETONES,URINE NEGATIVE (NEGATIVE); LEUKOCYTE ESTERASE ,URINE NEGATIVE (NEGATIVE); NITRITE,URINE NEGATIVE (NEGATIVE); PH,URINE 5.5 (5-9); PROTEIN,URINE TRACE (NEGATIVE)
[2020-08-31 19:47] LABS: BACTERIA,URINE LARGE /HPF; SQUAMOUS EPITHELIAL CELL,UR RARE /HPF
== END ==
PROVIDERS: ATTEND Internal Medicine
DX: Z01.89 Encounter for other specified special examinations (principal)
CPT/HCPCS: 81000

== ENCOUNTER 2021-05-22 16:08 | Emergency (ER) | payer MEDICARE, MEDICAID ==
[~2021-05-22] VITALS: Ht 162 cm; Wt 55.0 kg
[~2021-05-22 16:08] MED LIST changes: -SULF1TAB35 PO; +SULF1TAB38 PO
[2021-05-22 16:33] LABS: BILIRUBIN,URINE 1+ (NEGATIVE); CLARITY,URINE CLEAR; COLOR,URINE YELLOW; GLUCOSE, URINE (UA) NEGATIVE (NEGATIVE); KETONES,URINE NEGATIVE (NEGATIVE); LEUKOCYTE ESTERASE ,URINE NEGATIVE (NEGATIVE); NITRITE,URINE NEGATIVE (NEGATIVE); PH,URINE 5.5 (5-9); PROTEIN,URINE NEGATIVE (NEGATIVE)
[2021-05-22 16:33] LABS: BASOPHILS % (AUTO) 0 % (0-10); EOSINOPHILS % (AUTO) 0 % (0-10); HEMATOCRIT 46 % (35-52); HEMOGLOBIN 13.9 g/dL (11.5-16.0); LYMPHOCYTES # (AUTO) 2.6 10^3/uL (1.0-4.0); LYMPHOCYTES % (AUTO) 21 % (12-44); MEAN CORPUSCULAR HEMOGLOBIN 31 pg (25-34); MEAN CORPUSCULAR HGB CONC 31 g/dL (32-36); MEAN CORPUSCULAR VOLUME 100 fL (80-99); MEAN PLATELET VOLUME 12.5 fL (9.0-12.2); MONOCYTES # (AUTO) 0.8 10^3/uL (0.0-1.0); MONOCYTES % (AUTO) 7 % (0-12); NEUTROPHILS # (AUTO) 9.2 10^3/uL (1.8-7.8); NEUTROPHILS % (AUTO) 72 % (42-75); PLATELET COUNT 156 10^3/uL (130-400); WHITE BLOOD COUNT 12.7 10^3/uL (4.3-11.0)
[2021-05-22 16:43] LABS: ALBUMIN 4.2 GM/DL (3.2-4.5); POTASSIUM 4.8 MMOL/L (3.6-5.0)
[2021-05-22 16:44] LABS: CALCIUM 9.3 MG/DL (8.5-10.1)
[2021-05-22 16:45] LABS: TOTAL PROTEIN 8.3 GM/DL (6.4-8.2)
[2021-05-22] MEDS ORDERED: NS IV 1000 ML 1,000 ML IV SCH (16:45)
[2021-05-22 16:47] LABS: BILIRUBIN,TOTAL 0.5 MG/DL (0.1-1.0)
[2021-05-22 16:49] LABS: CREATININE SERUM 5.58 MG/DL (0.60-1.30)
[2021-05-22 16:52] LABS: MAGNESIUM 3.1 MG/DL (1.6-2.4)
[2021-05-22 17:00] LABS: BACTERIA,URINE MODERATE /HPF
[2021-05-22 17:04] LABS: INR 1.2 (0.8-1.4); PROTHROMBIN TIME PATIENT 15.5 SEC (12.2-14.7)
[2021-05-22 17:06] LABS: AMORPHOUS SEDIMENT,UR RARE AMOR URATES /LPF
[2021-05-22 17:19] LABS: POTASSIUM 4.4 MMOL/L (3.6-5.0)
[2021-05-22 17:20] LABS: CALCIUM 9.1 MG/DL (8.5-10.1)
[2021-05-22 17:24] LABS: CREATININE SERUM 5.57 MG/DL (0.60-1.30)
--- NOTE | 2021-05-22 17:45 | ED General ---
General Chief Complaint: Altered Mental Status Stated Complaint: AMS Nursing Triage Note: PT BROUGHT IN BY [facility] FROM [facility] FOR ALTERED MENTAL STATUS. STATES PT WAS DIAGNOSED WITH UTI, BUT HAD NOT STARTED ANTIBIOTICS. HAD CHANGE IN MENTATION ON THURSDAY. (ANKUR ESCALANTE) History of Present Illness Date Seen by Provider: May 22, 2021 Time Seen by Provider: 16:20 Initial Comments 85 year old female brought from [facility] via EMS for unresponsive status, for last 2-3 days she has not eaten or drank anything. She was found to have UTI yesterday, but no antibiotic was started. She is DNR. She received her COVID vaccines and booster. Daughter called to check on her but reports she isn't able to come see her b/c car has no headlights. No history obtained from patient. Timing/Duration: 2-3 Days Severity: Severe (ANKUR ESCALANTE) Allergies and Home Medications Allergies Coded Allergies: lisinopril (Verified Allergy, Mild, SWELLING, COULDN'T BREATHE, 07/27/19) Patient Home Medication List Home Medication List Reviewed: Yes (ANKUR ESCALANTE) Albuterol Sulfate (Proair Hfa) 1 Puff Puff, 2 PUFF IH Q4H PRN for SHORTNESS OF BREATH, (Reported) Entered as Reported by: TE SANTOS on 02/07/19 1443 Amlodipine Besylate (Amlodipine Besylate) 5 Mg Tablet, 5 MG PO DAILY, (Reported) Entered as Reported by: JUSTA SAUNDERS on 01/15/18823 Azithromycin (Azithromycin) 250 Mg Tablet, 250 MG PO UD Prescribed by: KENDALL JOSUE on 12/27/19 1258 Escitalopram Oxalate (Escitalopram Oxalate) 10 Mg Tablet, 10 MG PO DAILY, (Reported) Entered as Reported by: JUSTA SAUNDERS on 01/15/18823 Levothyroxine Sodium (Levothyroxine Sodium) 100 Mcg Tablet, 100 MCG PO DAILY, (R eported) Entered as Reported by: JUSTA SAUNDERS on 01/15/18823 Melatonin (Melatonin) 5 Mg Tablet, 5 MG PO HS, (Reported) Entered as Reported by: LORIE CASTELLANOS on 09/28/16 1320 Omeprazole (Omeprazole) 20 Mg Capsule.dr, 20 MG PO BID, (Reported) Entered as Reported by: JUSAT SAUNDERS on 01/15/18823 Telmisartan (Telmisartan) 40 Mg Tablet, 40 MG PO DAILY, (Reported) Entered as Reported by: JUSTA SAUNDERS on 01/15/18823 Review of Systems Review of Systems Constitutional: see HPI (ANKUR ESCALANTE) All Other Systems Reviewed Negative Unless Noted: Yes (ANKUR ESCALANTE) Past Gfqvnlz-Xeebzf-Xawkhu Hx Patient Social History Tobacco Use?: No Use of E-Cig and/or Vaping dev: No Substance use?: No Alcohol Use?: No Pt feels they are or have been: No (ANKUR ESCALANTE) Immunizations Up To Date Tetanus Booster (TDap): Less than 5yrs Influenza Vaccine Up-to-Date: Yes; Up-to-Date First/Initial COVID19 Vaccinat: 06/14/20 Second COVID19 Vaccination Jovany: 07/05/20 COVID19 Vaccine Metal Solderer: Safello (ANKUR ESCALATNE) Seasonal Allergies Seasonal Allergies: No (ANKUR ESCALANTE) Past Medical History Surgeries: Yes (SURGERY/PINS ON RODDY FEET, BRAIN SX-BEIGN TUMOR, crainiotomy) Hysterectomy, Oophorectomy, Orthopedic Respiratory: Yes COPD Currently Using CPAP: No Currently Using BIPAP: No Cardiac: Yes High Cholesterol, Hypertension Neurological: Yes (Fall with head bleed) Brain Tumor, Dementia, Traumatic Brain Injury 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 Disorders: No Female 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 Disorders: Denies 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 Sexually Transmitted Disease: No HIV/AIDS: No Genitourinary: Yes Renal Failure, UTI-Chronic Gastrointestinal: Yes Gastroesophageal Reflux Musculoskeletal: Yes Arthritis Endocrine: Yes Hypothyroidsim, Diabetes, Non-Insulin dep HEENT: Yes Loss of Vision: Denies Hearing Impairment: Hard of Hearing Cancer: No Psychosocial: Yes (hallucinations, secondary to her dementia) Depression Integumentary: No Blood Disorders: No (ANKUR ESCALANTE) Family Medical History Reviewed Nursing Family Hx (ANKUR ESCALANTE) Cardiovascular disease DAUGHTER Diabetes mellitus DAUGHTER Respiratory disorder DAUGHTER Heart Disease, COPD (ANKUR ESCALANTE) Physical Exam Vital Signs Vital Signs - First Documented 05/22/21 16:10 Temp 36.8 Pulse 102 Resp 20 B/P (MAP) 131/67 (88) Pulse Ox 92 O2 Delivery Room Air (ÓSCAR HOWARD MD) Vital Signs Capillary Refill : (ANKUR ESCALANTE) Height, Weight, BMI Height: 5'2.00" Weight: 111lbs. 3.0oz. 50.885912ap; 20.00 BMI Method:Stated General Appearance: Mild Distress, Thin Respiratory: Chest Non Tender, Lungs Clear, Normal Breath Sounds, No Accessory Muscle Use Cardiovascular: Regular Rate, Rhythm, No Edema, No Murmur, Normal Peripheral Pulses Gastrointestinal: Normal Bowel Sounds, Non Tender, Soft Extremity: Normal Capillary Refill, Normal Inspection Skin: Warm/Dry, Pallor (ANKUR ESCALANTE) Focused Exam Lactate Level 05/22/21 16:15: Lactic Acid Level 1.49 (ÓSCAR HOWARD MD) Lactic Acid Level Laboratory Tests Test 05/22/21 16:15 Lactic Acid Level 1.49 MMOL/L (0.50-2.00) (ÓSCAR HOWARD MD) Progress/Results/Core Measures Suspected Sepsis SIRS Temperature: Pulse: 102 Respiratory Rate: 20 Laboratory Tests 05/22/21 16:15: White Blood Count 12.7H Blood Pressure 131 /67 Mean: 88 05/22/21 16:15: Lactic Acid Level 1.49 Laboratory Tests 05/22/21 16:15: Creatinine 5.58H, INR Comment 1.2, Platelet Count 156, Total Bilirubin 0.5 05/22/21 17:06: Creatinine 5.57H (ANKUR ESCALANTE) Results/Orders Lab Results Laboratory Tests Test 05/22/21 16:15 05/22/21 16:20 05/22/21 17:06 Range/Units White Blood Count 12.7 H 4.3-11.0 10^3/uL Red Blood Count 4.53 3.80-5.11 10^6/uL Hemoglobin 13.9 11.5-16.0 g/dL Hematocrit 46 35-52 % Mean Corpuscular Volume 100 H 80-99 fL Mean Corpuscular Hemoglobin 31 25-34 pg Mean Corpuscular Hemoglobin Concent 31 L 32-36 g/dL Red Cell Distribution Width 14.3 10.0-14.5 % Platelet Count 156 130-400 10^3/uL Mean Platelet Volume 12.5 H 9.0-12.2 fL Immature Granulocyte % (Auto) 0 % Neutrophils (%) (Auto) 72 42-75 % Lymphocytes (%) (Auto) 21 12-44 % Monocytes (%) (Auto) 7 0-12 % Eosinophils (%) (Auto) 0 0-10 % Basophils (%) (Auto) 0 0-10 % Neutrophils # (Auto) 9.2 H 1.8-7.8 10^3/uL Lymphocytes # (Auto) 2.6 1.0-4.0 10^3/uL Monocytes # (Auto) 0.8 0.0-1.0 10^3/uL Eosinophils # (Auto) 0.0 0.0-0.3 10^3/uL Basophils # (Auto) 0.0 0.0-0.1 10^3/uL Immature Granulocyte # (Auto) 0.1 0.0-0.1 10^3/uL Prothrombin Time 15.5 H 12.2-14.7 SEC INR Comment 1.2 0.8-1.4 Activated Partial Thromboplast Time 33 24-35 SEC Sodium Level 172 *H 172 *H 135-145 MMOL/L Potassium Level 4.8 4.4 3.6-5.0 MMOL/L Chloride Level 129 H 130 H 98-107 MMOL/L Carbon Dioxide Level 18 L 18 L 21-32 MMOL/L Anion Gap 25 H 24 H 5-14 MMOL/L Blood Urea Nitrogen 117 *H 124 *H 7-18 MG/DL Creatinine 5.58 H 5.57 H 0.60-1.30 MG/DL Estimat Glomerular Filtration Rate 7 7 BUN/Creatinine Ratio 21 22 Glucose Level 264 H 264 H 70-105 MG/DL Lactic Acid Level 1.49 0.50-2.00 MMOL/L Calcium Level 9.3 9.1 8.5-10.1 MG/DL Corrected Calcium 9.1 8.5-10.1 MG/DL Magnesium Level 3.1 H 1.6-2.4 MG/DL Total Bilirubin 0.5 0.1-1.0 MG/DL Aspartate Amino Transf (AST/SGOT) 16 5-34 U/L Alanine Aminotransferase (ALT/SGPT) 6 0-55 U/L Alkaline Phosphatase 85 40-136 U/L C-Reactive Protein High Sensitivity 6.31 H 0.00-0.50 MG/DL Total Protein 8.3 H 6.4-8.2 GM/DL Albumin 4.2 3.2-4.5 GM/DL Influenza Type A (RT-PCR) Not Detected Not Detecte Influenza Type B (RT-PCR) Not Detected Not Detecte SARS-CoV-2 RNA (RT-PCR) Not Detected Not Detecte Urine Color YELLOW Urine Clarity CLEAR Urine pH 5.5 5-9 Urine Specific [place] >=1.030 1.016-1.022 Urine Protein NEGATIVE NEGATIVE Urine Glucose (UA) NEGATIVE NEGATIVE Urine Ketones NEGATIVE NEGATIVE Urine Nitrite NEGATIVE NEGATIVE Urine Bilirubin 1+ H NEGATIVE Urine Urobilinogen 0.2 < = 1.0 MG/DL Urine Leukocyte Esterase NEGATIVE NEGATIVE Urine RBC (Auto) NEGATIVE NEGATIVE Urine RBC NONE /HPF Urine WBC 2-5 /HPF Urine Crystals PRESENT H /LPF Urine Amorphous Sediment RARE DINESH URATES H /LPF Urine Bacteria MODERATE H /HPF Urine Casts NONE /LPF Urine Mucus NEGATIVE /LPF Urine Culture Indicated YES (ÓSCAR HOWARD MD) My Orders Orders - ÓSCAR HOWARD MD Cbc With Automated Diff (05/22/21 16:13) Comprehensive Metabolic Panel (05/22/21 16:13) Hs C Reactive Protein (05/22/21 16:13) Magnesium (05/22/21 16:13) Ua Culture If Indicated (05/22/21 16:13) Ed Iv/Invasive Line Start (05/22/21 16:13) Urine Culture (05/22/21 16:20) (ÓSCAR HOWARD MD) Medications Given in ED Current Medications Medications Dose Ordered Sig/Kevin Route Start Time Stop Time Status Last Admin Dose Admin Ceftriaxone Sodium/Dextrose 50 ml @ 100 mls/hr ONCE ONCE IV 05/22/21 18:30 05/22/21 18:59 DC 05/22/21 18:40 100 MLS/HR (ÓSCAR HOWARD MD) Vital Signs/I&O 05/22/21 05/22/21 16:10 20:38 Temp 36.8 Pulse 102 103 Resp 20 20 B/P (MAP) 131/67 (88) 132/62 Pulse Ox 92 93 O2 Delivery Room Air (ÓSCAR HOWARD MD) Vital Signs/I&O Capillary Refill : (BORIS,ANKUR SHEAR TENDER) Blood Pressure Mean: 88 Progress Note : Time: 16:20 Progress Note Patient seen and evaluated, spoke with the [facility] and received more history on the patient. We will continue giving normal saline per IV and check labs. 1700 critical values: Na 172, BUN 124, Creatinine 5.5, will discuss with daughter. 1730 spoke to daughter Parvin Ch [phone], discussed guarded condition of her mother and critical labs. The patient would require dialysis for treatment, which is not available here. She would like to proceed with comfort care and no aggressive management. Will give Rocephin IV for UTI. Notified [facility], their van is in [place] and they will not be able to come to get the patient. They will call EMS for transfer. 1844 patient has remained stable, no apnea. Continues to be unresponsive. Called [facility]. They van just returned and they will come get the patient. 1929 patient continues to be stable in room, [facility] notified again and they stated that the [employer] tank driver will be coming to get her soon. 2029 patient status is unchanged. tanker truck driver from [facility] present at this time to transfer her. (ANKUR ESCALANTE) Departure Impression Primary Impression: UTI (urinary tract infection) Qualified Codes: N30.01 - Acute cystitis with hematuria Additional Impression: Kidney failure, acute Qualified Codes: N17.9 - Acute kidney failure, unspecified Disposition: HOME, SELF-CARE Condition: Critical Departure-Patient Inst. Decision time for Depature: 18:10 (ANKUR ESCALANTE) Referrals: WILDA MAZA DO (PCP/Family) Primary Care Physician Patient Instructions: Kidney Failure (DC), Methenamine, Sodium Phos [place], Phenyl Salicylate, Methyl Blue, Hyoscyamine Add. Discharge Instructions: Comfort care. Notify daughter, if patient deteriorates further, breathing or heart rate decrease. Oral care every 2 hours. Return to ER for Urgent Care needs. All discharge instructions reviewed with patient and/or family. Voiced understanding. ATTENDING PHYSICIAN NOTE: I was physically present as attending physician in the emergency department during the care of this patient, but I was not directly involved in the decision making or delivery of care for this patient. (ÓSCAR HOWARD MD) Copy Copies To 1: WILDA MAZA AMY ARNP May 22, 2021 17:45 ÓSCAR HOWARD MD May 22, 2021 22:27
[2021-05-22] MEDS ORDERED: cefTRIAXone 1 GM PRE-MIX 50 ML IV ONE (18:30)
[2021-05-22 20:38] VITALS: BP 132/62
== END 2021-05-22 20:38 | disposition home or self-care (01) ==
LOC: EDUNIT# 16:08 → ER 16:09
DX: N39.0 Urinary tract infection, site not specified (principal); N17.9 Acute kidney failure, unspecified; J44.9 Chronic obstructive pulmonary disease, unspecified; I10 Essential (primary) hypertension; F03.90 Unspecified dementia, unspecified severity, without behavioral disturbance, psychotic disturbance, mood disturbance, and anxiety; E03.9 Hypothyroidism, unspecified; K21.9 Gastro-esophageal reflux disease without esophagitis; F32.9 Major depressive disorder, single episode, unspecified; E11.9 Type 2 diabetes mellitus without complications; Z20.822 Contact with and (suspected) exposure to COVID-19; Z87.820 Personal history of traumatic brain injury; Z79.890 Hormone replacement therapy; Z79.899 Other long term (current) drug therapy
CPT/HCPCS: 36415; 80048; 80053; 81000; 83605; 83735; 85025; 85610; 85730; 86141; 87040; 87077; 87088; 87636